=== PATIENT | female | born 1965 | race Caucasian/White ===

== ENCOUNTER 2024-08-19 09:02 | Emergency (ER) | payer BC ==
[2024-08-19] MEDS ORDERED: FAMOTIDINE 20 MG/2 ML VIAL IV ONE (09:45)
[2024-08-19] MEDS ORDERED: NA CHLORIDE 0.9% 1,000 ML ONE (09:45)
[2024-08-19 09:59] LABS: Absolute Eosinophils 0.2 K/uL (0-0.5); Absolute Lymphocytes (CBC) 1.5 K/uL (0.7-4.9); Absolute Monocytes 0.6 K/uL (0.1-1.3); Absolute Neutrophil 2.6 K/uL (1.8-8.0); Basophils % 0.4 % (0-1.3); Eosinophils % 4.9 % (0-4.4); Hematocrit 30.1 % (36.0-45.0); Hemoglobin 10.2 g/dL (12.0-15.0); Lymphocytes % 30.7 % (15.3-44.8); MCV 97.1 fL (80-100); MPV 7.6 fL (7.6-11.3); Monocytes % 12.1 % (3.3-12.3); Neutrophils % 51.9 % (41.7-73.7); Nucleated Red Blood Cells % 0.3 % (0-0); Platelets 406 thou/uL (152-406)
[2024-08-19 10:03] LABS: PT Prothrombin Time 18.2 SECONDS (9.4-12.5); Protime INR 1.65
--- NOTE | 2024-08-19 10:11 | RAD REPORT ---
EXAMINATION: CTA CHEST PE CLINICAL INDICATION: Chest pain TECHNIQUE: 100 cc 370 Isovue administered intravenously. This examination was performed according to an angiographic protocol with 3D post-processing. This involves 3D reconstructions, MIPs, volume rendered images and/or shaded surface rendering. One or more of the following dose reduction techniqu es were used: Automated exposure control, adjustment of the mA and/or kV according to patient size, and/or iterative reconstruction. Unless otherwise specified, incidental findings do not require dedic ated imaging follow-up. [id number]. COMPARISON: No prior exam. FINDINGS: No pulmonary embolus seen. An aortic aneurysm not noted. No pleural effusion. No pericardial effusion. Lungs are clear. 9 mm peripherally calcified nodule right lobe thyroid gland likely benign IMPRESSION: No evidence of a pulmonary embolus
--- NOTE | 2024-08-19 10:15 | RAD REPORT ---
Procedure: Chest Single View HISTORY: Chest pain COMPARISON: 2021 FINDINGS: The lungs appear clear of acute infiltrate. No significant pleural effusion noted. The heart is borderline enlarged. IMPRESSION: No acute abnormality is displayed.
[2024-08-19 10:21] LABS: ALT/SGPT 32 U/L (13-56); AST/SGOT 43 U/L (15-37); Albumin 2.7 g/dL (3.4-5.0); Albumin/Globulin Ratio 0.7 (1.1-1.8); Alkaline Phosphatase 71 U/L (45-117); Anion Gap 7.8 mEq/L (5.0-15.0); BUN Blood Urea Nitrogen 10 mg/dL (7-18); Bicarbonate 29 mEq/L (21-32); Bilirubin Total 0.3 mg/dL (0.2-1.0); Globulin 3.9 g/dL (2.3-3.5); Glomerular Filtration Rate 101 ml/min (=/>90); Glucose Level 162 mg/dL (74-106); Magnesium 1.9 mg/dL (1.6-2.4); NT PRO-BNP 432 pg/mL (<125); Potassium 3.8 mEq/L (3.5-5.1); Protein, Total 6.6 g/dL (6.4-8.2); Sodium Level 136 mEq/L (136-145); Troponin High Sensitivity 6.3 pg/mL (<58.9)
[2024-08-19 10:22] LABS: Bilirubin Direct < 0.2 mg/dL (0-0.2); Bilirubin Indirect, Calculated 0.1 mg/dL (0.2-0.8)
--- NOTE | 2024-08-19 10:29 | RAD REPORT ---
EXAMINATION: US bilateral LOWER EXTREMITY VENOUS DOPPLER CLINICAL INDICATION: Leg pain TECHNIQUE: Sonographic evaluation of the veins of the lower extremity bilaterally formed.Grayscale, c olor and spectral analysis performed on all vessels COMPARISON: No prior exam. FINDINGS: The common femoral, superficial femoral, greater saphenous, popliteal and posterior tibial veins bila terally are compressible and demonstrate augmentation. Doppler demonstrates good flow. IMPRESSION: No evidence of deep venous thrombosis involving either lower extremity
[2024-08-19] MEDS ORDERED: ONDANSETRON 4 MG/2 ML VIAL ONE (11:00)
[2024-08-19] MEDS ORDERED: MORPHINE 4 MG/ML SYR ONE (11:00)
--- NOTE | 2024-08-19 11:03 | EDPHYS ---
Physician Documentation [facility] Name: Williams Moore Age: 59 yrs Sex: Female : 1965 Arrival Date: 08/19/2024 Time: 09:02 Bed 7 Private MD: MOOK Physician Juan M Shepherd HPI: 08/19 10:55 This 59 yrs old Female presents to ER via EMS with complaints of Hip Pain, artur Leg Swelling. 10:55 The patient or guardian reports pain, swelling. sustained from post surgical. The artur complaints affect the right leg. Onset: The symptoms/episode began/occurred 5 day(s) ago. Modifying factors: The symptoms are alleviated by remaining still, the symptoms are aggravated by any movement. Associated signs and symptoms: Loss of consciousness: the patient experienced no loss of consciousness, Pertinent positives: None. Historical: - Allergies: 09:05 No Known Allergies; iw - PMHx: 09:05 Asthma; diabetes mellitus; Hypertensive disorder; iw - PSHx: 09:05 Fusion with hardware placement.; section; hysterectomy; Tonsillectomy; iw - Immunization history:: Adult Immunizations up to date. - Infectious Disease History:: Denies. - Social history:: Smoking status: Patient denies any tobacco usage or history of. ROS: 10:58 Constitutional: Negative for fever, chills, and weight loss, Eyes: Negative for injury, artur pain, redness, and discharge, ENT: Negative for injury, pain, and discharge, Neck: Negative for injury, pain, and swelling, Cardiovascular: Negative for chest pain, palpitations, and edema, 10:59 Respiratory: Negative for shortness of breath, cough, wheezing, and pleuritic chest artur pain, Abdomen/GI: Negative for abdominal pain, nausea, vomiting, diarrhea, and constipation, Back: Negative for injury and pain, : Negative for injury, bleeding, discharge, and swelling, Neuro: Negative for headache, weakness, numbness, tingling, and seizure, Psych: Negative for depression, anxiety, suicide ideation, homicidal ideation, and hallucinations, Allergy/Immunology: Negative for hives, rash, and allergies, Endocrine: Negative for neck swelling, polydipsia, polyuria, polyphagia, and marked weight changes, Hematologic/Lymphatic: Negative for swollen nodes, abnormal bleeding, and unusual bruising, 10:59 MS/extremity: Positive for pain, swelling, of the right leg, 10:59 Skin: Positive for swelling, Exam: 10:59 Constitutional: This is a well developed, well nourished patient who is awake, alert, artur and in no acute distress. Head/Face: Normocephalic, atraumatic. Eyes: Pupils equal round and reactive to light, extra-ocular motions intact. Lids and lashes normal. Conjunctiva and sclera are non-icteric and not injected. Cornea within normal limits. Periorbital areas with no swelling, redness, or edema. ENT: Nares patent. No nasal discharge, no septal abnormalities noted. Tympanic membranes are normal and external auditory canals are clear. Oropharynx with no redness, swelling, or masses, exudates, or evidence of obstruction, uvula midline. Mucous membranes moist. Neck: Trachea midline, no thyromegaly or masses palpated, and no cervical lymphadenopathy. Supple, full range of motion without nuchal rigidity, or vertebral point tenderness. No Meningismus. Chest/axilla: Normal chest wall appearance and motion. Nontender with no deformity. No lesions are appreciated. Cardiovascular: Regular rate and rhythm with a normal S1 and S2. No gallops, murmurs, or rubs. Normal PMI, no JVD. No pulse deficits. Respiratory: Lungs have equal breath sounds bilaterally, clear to auscultation and percussion. No rales, rhonchi or wheezes noted. No increased work of breathing, no retractions or nasal flaring. Abdomen/GI: Soft, non-tender, with normal bowel sounds. No distension or tympany. No guarding or rebound. No evidence of tenderness throughout. Back: No spinal tenderness. No costovertebral tenderness. Full range of motion. Female : Normal external genitalia. Skin: Warm, dry with normal turgor. Normal color with no rashes, no lesions, and no evidence of cellulitis. Neuro: Awake and alert, GCS 15, oriented to person, place, time, and situation. Cranial nerves II-XII grossly intact. Motor strength 5/5 in all extremities. Sensory grossly intact. Cerebellar exam normal. Normal gait. Psych: Awake, alert, with orientation to person, place and time. Behavior, mood, and affect are within normal limits. 10:59 Musculoskeletal/extremity: Circulation is intact in all extremities. Sensation intact. Compartment Syndrome exam of affected extremity: is normal. Weight bearing: able to fully bear weight, without difficulty, DVT Exam: negative Homans' sign noted on exam, no appreciated bluish discoloration, no erythema, no increased warmth, pain, swelling, tenderness, 11:04 ECG was reviewed by the Attending Physician. [facility] Vital Signs: 09:06 BP 132 / 65; Pulse 101; Resp 18; Temp 97.8; Pulse Ox 97% on R/A; Weight 86.18 kg; iw Height 5 ft. 6 in. ; Pain 3/10; 09:08 BP 134 / 66; iw 11:15 BP 132 / 61; Pulse 98; Resp 16; Pulse Ox 97% on R/A; iw 09:06 Body Mass Index 30.67 (86.18 kg, 167.64 cm) iw 09:06 Pain Scale: Adult iw MDM: 09:04 Medical Screening Exam initiated artur 11:00 Differential diagnosis: contusion, tendonitis, hip fracture, strain. Data reviewed: [facility] vital signs, nurses notes, lab test result(s), EKG, radiologic studies, CT scan, plain films. Consideration of Admission/Observation Escalation of care including admission/observation considered. I considered the following discharge prescriptions or medication management in the emergency department Medications were administered in the Emergency Department. See MAR. Independent interpretation of the following test(s) in the Emergency Department EKG: See my EKG interpretation above. Test considered but Not performed: X-ray: no x ray hip. Care significantly affected by the following chronic conditions: Diabetes, Hypertension, Obesity. 08/19 09:18 Order name: Basic Metabolic Panel; Complete Time: 10: [facility] 08/19 09:18 Order name: CBC with Diff; Complete Time: 10: [facility] 08/19 09:18 Order name: LFT's; Complete Time: 10: [facility] 08/19 09:18 Order name: Magnesium; Complete Time: 10: [facility] 08/19 09:18 Order name: NT PRO-BNP; Complete Time: 10:31 [facility] 08/19 09:18 Order name: PT-INR; Complete Time: 10:31 [facility] 08/19 09:18 Order name: Troponin HS; Complete Time: 10: [facility] 08/19 10:45 Order name: CREATININE WHOLE BLOOD; Complete Time: 10:47 EDMS 08/19 09:18 Order name: XRAY Chest (1 view); Complete Time: : [facility] 08/19 09:18 Order name: US Extremity Venous W Compression Keenan; Complete Time: [facility] 08/19 09:22 Order name: CT Chest For PE Angio; Complete Time: : [facility] 08/19 09:18 Order name: Cardiac monitoring; Complete Time: :40 [facility] 08/19 09:18 Order name: EKG - Nurse/Tech; Complete Time: 11:14 [facility] 08/19 09:18 Order name: IV Saline Lock; Complete Time: 40 [facility] 08/19 09:18 Order name: Labs collected and sent; Complete Time: [facility] 08/19 09:18 Order name: O2 Per Protocol; Complete Time: [facility] 08/19 09:18 Order name: O2 Sat Monitoring; Complete Time: [facility] EC:04 Rate is 96 beats/min. Rhythm is regular. QRS [place] is Normal. [place] interval is normal. QRS artur interval is normal. QT interval is normal. No Q waves. T waves are Normal. No ST changes noted. Clinical impression: NSR w/ Non-specific ST/T Changes and No evidence of ischemia. Interpreted by me. Reviewed by me. Administered Medications: 10:29 Drug: NS 0.9% IV 1000 ml IV at 1000 ml once; to be given as a bolus over 60 minutes ko1 Route: IV; Rate: 1000 ml; Site: right antecubital; 11:35 Follow up: IV Status: Completed infusion iw 10:30 Drug: Famotidine IVP 20 mg IVP once; dilute with 10 mL 0.9% NaCl; give over 2 minutes ko1 Route: IVP; Site: right antecubital; 10:50 Follow up: Response: No adverse reaction iw 10:55 Drug: morphine IVP or IV 4 mg IVP once over 4 mins Route: IVP; Infused Over: 4 mins; iw Site: right antecubital; 11:30 Follow up: Response: No adverse reaction iw 10:55 Drug: Ondansetron IVP 4 mg IVP once; over 2 minutes Route: IVP; Site: right antecubital;iw 11:30 Follow up: Response: No adverse reaction iw Disposition Summary: 08/19/24 11:02 Discharge Ordered Notes: Location: Home artur Problem: new artur Symptoms: have improved artur Condition: Stable artur Diagnosis - Edema, unspecified - right leg, s/p hip replacement artur Followup: artur - With: Private Physician - When: 2 - 3 days - Reason: Recheck today's complaints, Continuance of care, Re-evaluation by your physician Discharge Instructions: - Discharge Summary Sheet artur - Edema artur - Edema, [id number] artur - Peripheral Edema artur Forms: - Medication Reconciliation Form artur - Antibiotic Education artur - Prescription Opioid Use artur - Patient Portal Instructions artur - Leadership Thank You Letter artur Prescriptions: - Xarelto 10 mg Oral tablet - take 1 tablet ORAL route once daily; 20 tablet; Refills: 0, Product Selection artur Permitted Signatures: Dispatcher [employer] EDMS Juan M Shepherd MD MD cha Williams, Irene, RN RN iw Oliver, Kathy, RN RN ko1 Corrections: (The following items were deleted from the chart) 09:19 09:19 BASIC METABOLIC PANEL+C.LAB.BRZ ordered. EDMS EDMS 09:19 09:19 CBC+H.LAB.BRZ ordered. EDMS EDMS 09:19 09:19 HEPATIC FUNCTION+C.LAB.BRZ ordered. EDMS EDMS 09:19 09:19 MAGNESIUM+C.LAB.BRZ ordered. EDMS EDMS 09:19 09:19 PROBNP+C.LAB.BRZ ordered. EDMS EDMS 09:19 09:19 PROTIME (+INR)+COAG.LAB.BRZ ordered. EDMS EDMS 09:19 09:19 Troponin High Sensitivity+C.LAB.BRZ ordered. EDMS EDMS 09:19 09:19 Urinalysis+U.LAB.BRZ ordered. EDMS EDMS 09:19 09:19 Chest Single View+RAD.RAD.BRZ ordered. EDMS EDMS 09:19 09:19 Extrem Venous W Compression Keenan+US.RAD.BRZ ordered. EDMS EDMS
--- NOTE | 2024-08-19 11:03 | ER ---
Nurse's Notes [facility] Name: Williams Moore Age: 59 yrs Sex: Female : 1965 Arrival Date: 08/19/2024 Time: 09:02 Bed 7 Private MD: Diagnosis: Edema, unspecified-right leg, s/p hip replacement Presentation: 08/19 09:04 Chief complaint: EMS states: right leg swelling and pain s/p hip replacement surgery X iw 1 week ago. Coronavirus screen: At this time, the client does not indicate any symptoms associated with coronavirus-19. Ebola Screen: No symptoms or risks identified at this time. Initial Sepsis Screen: Does the patient meet any 2 criteria? No. Patient's initial sepsis screen is negative. Does the patient have a suspected source of infection? No. Patient's initial sepsis screen is negative. Risk Assessment: Do you want to hurt yourself or someone else? Patient reports no desire to harm self or others. 09:04 Method Of Arrival: EMS: [facility] iw 09:04 Acuity: ELOISA 3 iw 09:08 Onset of symptoms was August 12, 2024. iw Historical: - Allergies: 09:05 No Known Allergies; iw - PMHx: 09:05 Asthma; diabetes mellitus; Hypertensive disorder; iw - PSHx: 09:05 Fusion with hardware placement.; section; hysterectomy; Tonsillectomy; iw - Immunization history:: Adult Immunizations up to date. - Infectious Disease History:: Denies. - Social history:: Smoking status: Patient denies any tobacco usage or history of. Screenin:08 [facility] ED Fall Risk Assessment (Adult) History of falling in the last 3 months, iw including since admission Confusion or Disorientation No (0 pts) Intoxicated or Sedated No (0 pts) Impaired Gait Yes (1 pt) Mobility Assist Device Used Yes (1 pt) Altered Elimination No (0 pt) Score/Fall Risk Level 3 or more points = High Risk Oriented to surroundings, Maintained a safe environment. Abuse screen: Denies threats or abuse. Nutritional screening: No deficits noted. Tuberculosis screening: No symptoms or risk factors identified. Assessment: 09:07 General: Appears in no apparent distress. uncomfortable, Behavior is calm, cooperative. iw Pain: Complains of pain in right leg Pain currently is 3 out of 10 on a pain scale. Is continuous, Aggravated by increased activity, weight bearing. Neuro: Level of Consciousness is awake, alert, obeys commands, Oriented to person, place, time, situation, Moves all extremities. Full function. Cardiovascular: Patient's skin is warm and dry. Respiratory: Respiratory effort is even, unlabored, Respiratory pattern is regular, symmetrical. GI: Abdomen is non-distended. Derm: Skin is normal. Musculoskeletal: Swelling present in right leg Reports pain in right leg. 11:30 Reassessment: Patient appears in no apparent distress at this time. Patient and/or iw family updated on plan of care and expected duration. Pain level reassessed. Patient is alert, oriented x 3, equal unlabored respirations, skin warm/dry/pink. pt assisted to standing, pt able to ambulate with walker out to vehicle. Vital Signs: 09:06 BP 132 / 65; Pulse 101; Resp 18; Temp 97.8; Pulse Ox 97% on R/A; Weight 86.18 kg; iw Height 5 ft. 6 in. ; Pain 3/10; 09:08 BP 134 / 66; iw 11:15 BP 132 / 61; Pulse 98; Resp 16; Pulse Ox 97% on R/A; iw 09:06 Body Mass Index 30.67 (86.18 kg, 167.64 cm) iw 09:06 Pain Scale: Adult iw ED Course: 09:03 Patient arrived in ED. iw 09:04 Juan M Shepherd MD is Attending Physician. artur 09:04 Rosetta Farrar, RN is Primary Nurse. iw 09:05 Triage completed. iw 09:06 Arm band placed on. iw 09:06 Patient has correct armband on for positive identification. Placed in gown. Bed in low iw position. Side rails up X2. 09:41 Inserted saline lock: 20 gauge in right antecubital area, using aseptic technique. iw Blood collected. Flushed with 10 mL NS inserted by SHANTEL Burden. 09:52 CT Chest For PE Angio In Process Unspecified. EDMS 09:57 XRAY Chest (1 view) In Process Unspecified. EDMS 10:27 US Extremity Venous W Compression Keenan In Process Unspecified. EDMS 11:30 Provided Education on: prescription . iw 11:39 No provider procedures requiring assistance completed. IV discontinued, intact, iw bleeding controlled, No redness/swelling at site. Pressure dressing applied. Administered Medications: 10:29 Drug: NS 0.9% IV 1000 ml IV at 1000 ml once; to be given as a bolus over 60 minutes ko1 Route: IV; Rate: 1000 ml; Site: right antecubital; 11:35 Follow up: IV Status: Completed infusion iw 10:30 Drug: Famotidine IVP 20 mg IVP once; dilute with 10 mL 0.9% NaCl; give over 2 minutes ko1 Route: IVP; Site: right antecubital; 10:50 Follow up: Response: No adverse reaction iw 10:55 Drug: morphine IVP or IV 4 mg IVP once over 4 mins Route: IVP; Infused Over: 4 mins; iw Site: right antecubital; 11:30 Follow up: Response: No adverse reaction iw 10:55 Drug: Ondansetron IVP 4 mg IVP once; over 2 minutes Route: IVP; Site: right antecubital;iw 11:30 Follow up: Response: No adverse reaction iw Medication: 09:08 VIS not applicable for this client. iw Outcome: 11:02 Discharge ordered by . artur 11:39 Discharged to home ambulatory, with family, iw 11:39 Condition: good 11:39 Discharge instructions given to patient, family, Instructed on discharge instructions, follow up and referral plans. medication usage, Demonstrated understanding of instructions, follow-up care, medications, Prescriptions given X 1, 11:40 Patient left the ED. iw Signatures: Dispatcher [employer] Juan M Pabon MD MD cha Williams, Irene, RN RN iw Franny Granados RN RN ko1 Corrections: (The following items were deleted from the chart) 19:30 11:00 Reassessment: Patient appears in no apparent distress at this time. Patient iw and/or family updated on plan of care and expected duration. Pain level reassessed. Patient is alert, oriented x 3, equal unlabored respirations, skin warm/dry/pink. pt assisted to standing, pt able to ambulate with walker out to vehicle iw
[2024-08-19 11:46] VITALS: TEMP 97.8; O2SAT 97
[2024-08-19 11:49] VITALS: BP 132/61
--- NOTE | 2024-08-23 12:10 | EKG ---
Test Date: 2024-08-19 Test Time: 10:57:00 Health Center Manager: MARITZA MEASUREMENT RESULTS: Intervals: Rate: 96 ID: [id number] QRSD: 74 QT: 366 QTc: 462 [place]: P: 39 ID: [id number] QRS: -1 T: 28 INTERPRETIVE STATEMENTS: Normal sinus rhythm Normal ECG No previous ECG available for comparison Electronically Signed On 08-23-24 12:05:49 SECURITY CONTROLS ASSESSOR by Олег Ng
== END 2024-08-19 11:40 | disposition home or self-care (01) ==
LOC: ER 09:02
DX: R60.0 Localized edema (principal); M25.551 Pain in right hip; Z96.641 Presence of right artificial hip joint
CPT/HCPCS: 96361; 85025; 80048; 36415; 83735; 85610; 82565; 80076; 84484; 83880; 71275; 71045; 93970; 96375; 96374; 99284; Q9967; J2405; J7030; 93005

== ENCOUNTER 2024-09-21 08:10 | Observation (INO) | payer BC ==
[2024-09-21 08:41] LABS: PT Prothrombin Time 11.4 SECONDS (9.4-12.5); Protime INR 1.09
[2024-09-21 08:42] LABS: Absolute Eosinophils 0.1 K/uL (0-0.5); Absolute Lymphocytes (CBC) 2.1 K/uL (0.7-4.9); Absolute Monocytes 0.4 K/uL (0.1-1.3); Basophils % 0.4 % (0-1.3); Eosinophils % 2.5 % (0-4.4); Hematocrit 40.8 % (36.0-45.0); Hemoglobin 13.8 g/dL (12.0-15.0); Lymphocytes % 45.5 % (15.3-44.8); MCH 31.7 pg (27.0-35.0); MCHC 33.7 g/dL (32.0-36.0); Neutrophils % 43.6 % (41.7-73.7); Nucleated Red Blood Cells % 0.1 % (0-0); Platelets 271 thou/uL (152-406); RBC Red Blood Cell Count 4.34 M/uL (3.86-4.86); Red Cell Distribution Width 13.4 % (12.1-15.2)
[2024-09-21 08:55] LABS: Albumin 3.6 g/dL (3.4-5.0); Albumin/Globulin Ratio 0.9 (1.1-1.8); Anion Gap 13.6 mEq/L (5.0-15.0); Bilirubin Direct 0.2 mg/dL (0-0.2); Bilirubin Indirect, Calculated 0.3 mg/dL (0.2-0.8); Bilirubin Total 0.5 mg/dL (0.2-1.0); Globulin 4.1 g/dL (2.3-3.5); Magnesium 1.8 mg/dL (1.6-2.4); Potassium 3.6 mEq/L (3.5-5.1); Protein, Total 7.7 g/dL (6.4-8.2); Troponin High Sensitivity 5.1 pg/mL (<58.9)
[2024-09-21] MEDS ORDERED: KETOROLAC 30 MG/ML INJ ONE (09:05)
--- NOTE | 2024-09-21 09:21 | RAD REPORT ---
EXAM: CT Chest For Pe Angio TECHNIQUE: CT angiogram of the chest was performed following intravenous contrast administration, inc luding sagittal and coronal as well as maximum intensity projection reformats. One or more of the following dose reduction techniques were used: Automated exposure control, adjustment of the mA and k V according to patient size, and iterative reconstruction. Unless otherwise specified, incidental findings do not require dedicated imaging follow-up. INDICATION: [facility] MAIN CHEST PAIN Bed Name: 12 Y COMPARISON: 08/19/2024. FINDINGS: LINES/TUBES: None. PULMONARY ARTERIES: Main pulmonary artery is prominent in caliber, equal to or exceeding caliber of t he ascending aorta. No filling defects within the pulmonary arteries to suggest pulmonary embolus. LUNGS AND AIRWAYS: The lungs and central airways are normal without focal abnormality. PLEURA: No effusion or pneumothorax. HEART AND MEDIASTINUM: The visualized thyroid gland is normal. No mediastinal, hilar, or axillary lym phadenopathy. Heart is unremarkable. No pericardial effusion. SOFT TISSUES AND BONES: No acute osseous abnormality. No significant soft tissue finding. UPPER ABDOMEN: Unremarkable. IMPRESSION: No evidence of acute central pulmonary emboli. Prominent caliber of the main pulmonary artery, correlate clinically for ongoing pulmonary hypertensi on. No other acute intrathoracic findings.
[2024-09-21] MEDS ORDERED: ONDANSETRON 4 MG/2 ML VIAL ONE (09:33)
[2024-09-21] MEDS ORDERED: HYDROMORPHONE HCL 1 MG/ML INJ ONE (09:33)
--- NOTE | 2024-09-21 09:36 | ER ---
Nurse's Notes [facility] Name: Williams Moore Age: 59 yrs Sex: Female : 1965 Arrival Date: 09/21/2024 Time: 08:10 Bed 13 Private MD: Diagnosis: Chest pain Presentation: 09/21 08:16 Chief complaint: EMS states: LEFT SIDED CHEST PAIN RADIATING TO LEFT SHOULDER. bp Coronavirus screen: At this time, the client does not indicate any symptoms associated with coronavirus-19. Ebola Screen: No symptoms or risks identified at this time. Initial Sepsis Screen: Does the patient meet any 2 criteria? No. Patient's initial sepsis screen is negative. Does the patient have a suspected source of infection? No. Patient's initial sepsis screen is negative. Risk Assessment: Do you want to hurt yourself or someone else? Patient reports no desire to harm self or others. Onset of symptoms was September 21, 2024. Care prior to arrival: Glucose check: 148. 08:16 Method Of Arrival: EMS: [facility] bp 08:16 Acuity: ELOISA 3 bp Triage Assessment: 08:17 General: Appears in no apparent distress. uncomfortable, Behavior is calm, cooperative, bp appropriate for age. Pain: Complains of pain in chest. EENT: No deficits noted. Neuro: No deficits noted. Cardiovascular: Reports chest pain. Respiratory: No deficits noted. GI: No signs and/or symptoms were reported involving the gastrointestinal system. : No signs and/or symptoms were reported regarding the genitourinary system. Derm: No deficits noted. Musculoskeletal: No deficits noted. Historical: - Allergies: 08:17 No Known Allergies; bp - PMHx: 08:17 Asthma; diabetes mellitus; Hypertensive disorder; bp - PSHx: 08:17 section; Fusion with hardware placement.; hysterectomy; Tonsillectomy; bp - Immunization history:: Adult Immunizations up to date. - Infectious Disease History:: Denies. - Social history:: Smoking status: Patient denies any tobacco usage or history of. Screenin:19 [facility] ED Fall Risk Assessment (Adult) History of falling in the last 3 months, bp including since admission No falls in past 3 months (0 pts) Confusion or Disorientation No (0 pts) Intoxicated or Sedated No (0 pts) Impaired Gait No (0 pts) Mobility Assist Device Used No (0 pt) Altered Elimination No (0 pt) Score/Fall Risk Level 0 - 2 = Low Risk Oriented to surroundings. Abuse screen: Denies threats or abuse. Denies injuries from another. Nutritional screening: No deficits noted. Tuberculosis screening: No symptoms or risk factors identified. Assessment: 08:20 General: Appears in no apparent distress. uncomfortable. bp 11:00 Reassessment: REPORT FAXED FOR RM 410. bp Vital Signs: 08:12 BP 103 / 53; Pulse 80; Resp 19; Temp 98.5; Pulse Ox 98% on R/A; Weight 86.18 kg; Height ty 5 ft. 6 in. ; Pain 7/10; 08:16 BP 132 / 75; bp 08:12 Body Mass Index 30.67 (86.18 kg, 167.64 cm) ty 08:12 Pain Scale: Adult ty ED Course: 08:11 Initial lab(s) drawn, by me, sent to lab. EKG done, by ED staff, reviewed by Ludy Arroyo MD. 08:16 Patient arrived in ED. sp3 08:16 Ludy Arroyo MD is Attending Physician. sp3 08:16 Mathew Rogers, RN is Primary Nurse. bp 08:17 Triage completed. bp 08:17 Arm band placed on. bp 08:19 Patient has correct armband on for positive identification. bp 08:20 Inserted saline lock: 22 gauge in right antecubital area, using aseptic technique. ty Blood collected. Flushed with 10 mL NS. 08:56 CT Chest For PE Angio In Process Unspecified. EDMS 09:35 Zachariah Chiu is Hospitalizing Provider. sp3 11:00 Provided Education on: NA. bp 11:00 No provider procedures requiring assistance completed. Patient admitted, IV remains in bp place. Administered Medications: 09:10 Drug: Ketorolac IVP 15 mg IVP once Route: IVP; Site: left wrist; hb 09:31 Follow up: Response: No adverse reaction bp 09:37 Drug: Ondansetron IVP 4 mg IVP once; over 2 minutes Route: IVP; Site: left wrist; bp 11:53 Follow up: Response: No adverse reaction bp 09:38 Drug: HYDROmorphone IVP 1 mg IVP once Route: IVP; Site: left wrist; bp 11:53 Follow up: Response: No adverse reaction bp Medication: 11:00 VIS not applicable for this client. bp Outcome: 09:35 Decision to Hospitalize by Provider. sp3 11:53 Patient left the ED. bp Signatures: Dispatcher [employer] EDMS Belgica Whalen, RN RN Mathew Ness RN RN Ludy Hunter MD MD sp3 Teddy Nino ty Corrections: (The following items were deleted from the chart) 08:44 08:12 Inserted saline lock: 22 gauge in right antecubital area, using aseptic ty technique. Blood collected. Flushed with 10 mL NS ty 08:44 08:20 Initial lab(s) drawn, by me, sent to lab. EKG done, by ED staff, reviewed by ty Ludy Arroyo MD ty 08:46 08:45 BP 103 / 53; Pulse 80bpm; Resp 19bpm; Pulse Ox 98% RA; Temp 98.5F; Pain 7/10, ty Adult; ty 08:47 08:12 BP 103 / 53; Pulse 80bpm; Resp 19bpm; Pulse Ox 98% RA; Temp 98.5F; Pain 7/10, ty Adult; ty
--- NOTE | 2024-09-21 09:36 | EDPHYS ---
Physician Documentation [facility] Name: Williams Moore Age: 59 yrs Sex: Female : 1965 Arrival Date: 09/21/2024 Time: 08:10 Bed 13 Private MD: ED Physician Ludy Arroyo HPI: 09/21 08:19 This 59 yrs old Female presents to ER via EMS with complaints of chest pain. sp3 08:19 59-year-old female with history of diabetes, hypertension, asthma presents via EMS for sp3 chief complaint chest pain that started this morning when she woke up. Patient was at rest and watching television when it started. She states that the pain is left-sided radiating over to the right as well as the left shoulder. Patient had a elective right hip replacement performed approximately 1 month ago. She is not on no current anticoagulants or DVT prophylaxis. She denies any calf pain or lower extremity swelling. Review of systems negative for headache, fever, URI symptoms, cough, shortness of breath, back pain, abdominal pain, nausea, vomit, diarrhea, syncope, near syncope, focal neurological deficit, prolonged immobilization, travel history, or any other signs or symptoms on ROS at this time.. Historical: - Allergies: 08:17 No Known Allergies; bp - PMHx: 08:17 Asthma; diabetes mellitus; Hypertensive disorder; bp - PSHx: 08:17 section; Fusion with hardware placement.; hysterectomy; Tonsillectomy; bp - Immunization history:: Adult Immunizations up to date. - Infectious Disease History:: Denies. - Social history:: Smoking status: Patient denies any tobacco usage or history of. ROS: 08:20 Constitutional: Negative for fever, chills, and weight loss, Eyes: Negative for injury, sp3 pain, redness, and discharge, ENT: Negative for injury, pain, and discharge, Neck: Negative for injury, pain, and swelling, Respiratory: Negative for shortness of breath, cough, wheezing, and pleuritic chest pain, Abdomen/GI: Negative for abdominal pain, nausea, vomiting, diarrhea, and constipation, Back: Negative for injury and pain, MS/Extremity: Negative for injury and deformity, Skin: Negative for injury, rash, and discoloration, Neuro: Negative for headache, weakness, numbness, tingling, and seizure, Psych: Negative for depression, anxiety, suicide ideation, homicidal ideation, and hallucinations, Allergy/Immunology: Negative for hives, rash, and allergies, Endocrine: Negative for neck swelling, polydipsia, polyuria, polyphagia, and marked weight changes, Hematologic/Lymphatic: Negative for swollen nodes, abnormal bleeding, and unusual bruising, 08:20 All other systems are negative, Exam: 08:20 Constitutional: This is a well developed, well nourished patient who is awake, alert, sp3 and in no acute distress. Head/Face: Normocephalic, atraumatic. Eyes: Pupils equal round and reactive to light, extra-ocular motions intact. Lids and lashes normal. Conjunctiva and sclera are non-icteric and not injected. Cornea within normal limits. Periorbital areas with no swelling, redness, or edema. ENT: Nares patent. No nasal discharge, no septal abnormalities noted. External auditory canals are clear. Oropharynx with no redness, swelling, or masses, exudates, or evidence of obstruction, uvula midline. Mucous membranes moist. Neck: Trachea midline, no thyromegaly or masses palpated, and no cervical lymphadenopathy. Supple, full range of motion without nuchal rigidity, or vertebral point tenderness. No Meningismus. Chest/axilla: Normal chest wall appearance and motion. Nontender with no deformity. No lesions are appreciated. Cardiovascular: Regular rate and rhythm with a normal S1 and S2. No gallops, murmurs, or rubs. Normal PMI, no JVD. No pulse deficits. Respiratory: Lungs have equal breath sounds bilaterally, clear to auscultation and percussion. No rales, rhonchi or wheezes noted. No increased work of breathing, no retractions or nasal flaring. Abdomen/GI: Soft, non-tender, with normal bowel sounds. No distension or tympany. No guarding or rebound. No evidence of tenderness throughout. Back: No spinal tenderness. No costovertebral tenderness. Full range of motion. Skin: Warm, dry with normal turgor. Normal color with no rashes, no lesions, and no evidence of cellulitis. MS/ Extremity: Pulses equal, no cyanosis. Neurovascular intact. Full, normal range of motion. Neuro: Awake and alert, GCS 15, oriented to person, place, time, and situation. Cranial nerves II-XII grossly intact. Motor strength 5/5 in all extremities. Sensory grossly intact. Cerebellar exam normal. Normal gait. Psych: Awake, alert, with orientation to person, place and time. Behavior, mood, and affect are within normal limits. 08:37 ECG was reviewed by the Attending Physician. EKG demonstrates normal sinus rhythm at 71 sp3 bpm with normal intervals, normal QRS, normal axis, normal ST/T-segment's without evidence of acute ischemia. Vital Signs: 08:12 BP 103 / 53; Pulse 80; Resp 19; Temp 98.5; Pulse Ox 98% on R/A; Weight 86.18 kg; Height ty 5 ft. 6 in. ; Pain 7/10; 08:16 BP 132 / 75; bp 08:12 Body Mass Index 30.67 (86.18 kg, 167.64 cm) ty 08:12 Pain Scale: Adult ty MDM: 08:16 Medical Screening Exam initiated sp3 08:20 Data reviewed: vital signs, nurses notes, lab test result(s), EKG, radiologic studies. sp3 ED course: 59-year-old female with PMH above now with chest pain and postop 1 month from right hip replacement. Differential diagnosis includes acute coronary syndrome, musculoskeletal chest pain, PE, pleurisy, pneumonia, among others. I am not highly suspicious of sepsis, shock, aortic pathology, GI pathology or any other critical process. Workup will include EKG, CT chest PE protocol, general labs and supportive care with any layered medications as indicated.. 09:34 ED course: Chest pain improved after initial ketorolac. Patient notes having recurrent sp3 right hip pain. Will continue pain control with Dilaudid and Zofran. Initial troponin negative. Given history, patient will be placed in observation for continued serial cardiac markers and cardiology consult.. 09/21 08:16 Order name: Basic Metabolic Panel; Complete Time: 08:57 sp3 09/21 08:16 Order name: CBC with Diff; Complete Time: 08:57 sp3 09/21 08:16 Order name: LFT's; Complete Time: 08:57 sp3 09/21 08:16 Order name: Magnesium; Complete Time: 08:57 sp3 09/21 08:16 Order name: NT PRO-BNP; Complete Time: 08:57 sp3 09/21 08:16 Order name: PT-INR; Complete Time: 08:57 sp3 09/21 08:16 Order name: Troponin HS; Complete Time: 08:57 sp3 09/21 09:30 Order name: Flu sp3 09/21 09:30 Order name: SARS RAPID sp3 09/21 10:33 Order name: Basic Metabolic Panel EDMS 09/21 10:33 Order name: Basic Metabolic Panel EDMS 09/21 10:33 Order name: CBC with Automated Diff EDMS 09/21 10:33 Order name: CBC with Automated Diff EDMS 09/21 10:33 Order name: Hemoglobin A1c EDMS 09/21 10:33 Order name: Hemoglobin A1c EDMS 09/21 10:33 Order name: Lipid Profile EDMS 09/21 10:33 Order name: Lipid Profile EDMS 09/21 10:33 Order name: Troponin High Sensitivity EDMS 09/21 10:33 Order name: Troponin High Sensitivity EDMS 09/21 10:33 Order name: Troponin High Sensitivity EDMS 09/21 08:16 Order name: CT Chest For PE Angio; Complete Time: 09:27 sp3 09/21 10:33 Order name: EKG Electrocardiogram EDMS 09/21 10:33 Order name: EKG Electrocardiogram EDMS 09/21 10:33 Order name: EKG Electrocardiogram EDMS 09/21 10:33 Order name: EKG Electrocardiogram EDMS 09/21 08:16 Order name: Cardiac monitoring; Complete Time: 08:20 sp3 09/21 08:16 Order name: EKG - Nurse/Tech; Complete Time: 08:42 sp3 09/21 08:16 Order name: IV Saline Lock; Complete Time: 08:42 sp3 09/21 08:16 Order name: Labs collected and sent; Complete Time: 08:42 sp3 09/21 08:16 Order name: O2 Per Protocol; Complete Time: 08:20 sp3 09/21 08:16 Order name: O2 Sat Monitoring; Complete Time: 08:20 sp3 09/21 09:30 Order name: PO challenge; Complete Time: 09:38 sp3 Administered Medications: 09:10 Drug: Ketorolac IVP 15 mg IVP once Route: IVP; Site: left wrist; hb 09:31 Follow up: Response: No adverse reaction bp 09:37 Drug: Ondansetron IVP 4 mg IVP once; over 2 minutes Route: IVP; Site: left wrist; bp 11:53 Follow up: Response: No adverse reaction bp 09:38 Drug: HYDROmorphone IVP 1 mg IVP once Route: IVP; Site: left wrist; bp 11:53 Follow up: Response: No adverse reaction bp Disposition Summary: 09/21/24 09:35 Hospitalization Ordered Notes: Hospitalization Status: Observation sp3 Provider: Zachariah Chiu sp3 Location: Telemetry/MedSurg (observation) sp3 Condition: Stable sp3 Problem: new sp3 Symptoms: have worsened sp3 Bed/Room Type: Standard sp3 Room Assignment: 410(09/21/24 10:46) kb3 Diagnosis - Chest pain sp3 Forms: - Medication Reconciliation Form sp3 - SBAR form sp3 - Leadership Thank You Letter sp3 Signatures: Dispatcher [employer] EDMS Belgica Whalen, RN RN hb Mathew Rogers RN RN Ludy Hunter MD MD sp3 Cee Farr RN RN kb3 Corrections: (The following items were deleted from the chart) 08:17 08:17 BASIC METABOLIC PANEL+C.LAB.BRZ ordered. EDMS EDMS 08:17 08:17 CBC+H.LAB.BRZ ordered. EDMS EDMS 08:17 08:17 HEPATIC FUNCTION+C.LAB.BRZ ordered. EDMS EDMS 08:17 08:17 MAGNESIUM+C.LAB.BRZ ordered. EDMS EDMS 08:17 08:17 PROBNP+C.LAB.BRZ ordered. EDMS EDMS 08:17 08:17 PROTIME (+INR)+COAG.LAB.BRZ ordered. EDMS EDMS 08:17 08:17 Troponin High Sensitivity+C.LAB.BRZ ordered. EDMS EDMS 08:17 08:17 Chest For PE Angio+CT.RAD.BRZ ordered. EDMS EDMS 10:46 09:35 sp3 kb3
[2024-09-21] MEDS ORDERED: ACETAMINOPHEN 500 MG TAB PO PRN (10:25)
[2024-09-21] MEDS ORDERED: SODIUM CHLORIDE 0.9% 10ML INJ IV PRN (10:25)
--- NOTE | 2024-09-21 10:25 | P.HP ---
Certification for Inpatient Patient admitted to: Observation With expected LOS: <2 Midnights Patient will require the following post-hospital care: None Practitioner: I am a practitioner with admitting privileges, knowledge of patient current condition, hospital course, and medical plan of care. Services: Services provided to patient in accordance with Admission requirements found in Title 42 Section 412.3 of the Code of Federal Regulations Patient History Date of Service: 09/21/24 Reason for admission: Angina, palpitations History of Present Illness: Mrs. 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 She presents to the emergency department today after awaking with chest pain. She describes the pain as radiating over to the right as well as to the left shoulder. Pain is worse on movement. She denies shortness of breath, edema, dyspnea on exertion, or lightheadedness but does admit to nausea. Initial workup in the emergency department is negative for ACS or PE but as her heart score is 5 for age risk factors and nonspecific repolarization on EKG: We will admit her for observation for serial enzymes. Allergies No Known Allergies Allergy (Verified 03/31/23 22:14) Home Medications: Fenofibrate,Micronized [Fenofibrate] 130 mg PO DAILY 03/31/23 Lisinopril/Hydrochlorothiazide [Lisinopril-Hctz 10-12.5 mg Tab] 1 tab PO DAILY 03/31/23 Omeprazole [Prilosec] 40 mg PO DAILY 03/31/23 Folic Acid 1 mg PO DAILY #30 tab 04/02/23 Thiamine HCl [Vitamin B-1*] 100 mg PO DAILY #30 tab 04/02/23 Trazodone [Desyrel] 50 mg PO BEDTIME 09/21/24 - Past Medical/Surgical History Has patient received pneumonia vaccine in the past: No Diabetic: Yes -: Essential hypertension -: Diabetes currently uncontrolled -: Asthma -: -: Tonsillectomy -: Spine surgery -: Dental implants Psychosocial/ Personal History: , - Social History Smoking Status: Unknown if ever smoked Alcohol use: Yes CD- Drugs: No Caffeine use: No Place of Residence: Home Review of Systems 10-point ROS is otherwise unremarkable General: Weakness, Malaise Eyes: Unremarkable ENT: Unremarkable Respiratory: Unremarkable Cardiovascular: Chest Pain Gastrointestinal: Nausea, Vomiting, Diarrhea Genitourinary: Unremarkable Musculoskeletal: Unremarkable Integumentary: Unremarkable Neurological: Unremarkable Lymphatics: Unremarkable Physical Examination - Physical Exam General: Alert, In no apparent distress, Oriented x3 HEENT: Atraumatic, Normocephalic Neck: Supple, JVD not distended Respiratory: Clear to auscultation bilaterally, Normal air movement Cardiovascular: Normal pulses, Regular rate/rhythm, Normal S1 S2 Capillary refill: <2 Seconds Gastrointestinal: Normal bowel sounds, Soft and benign Musculoskeletal: No clubbing, No swelling Integumentary: No rashes Neurological: Normal speech, Normal tone, Normal affect Lymphatics: No axilla or inguinal lymphadenopathy External genitalia: Deferred Rectal: Deferred - Studies Laboratory Data (last 24 hrs) 09/21/24 09/21/24 09/21/24 08:24 08:24 08:24 WBC 4.60 Hgb 13.8 Hct 40.8 Plt Count 271 PT 11.4 INR 1.09 Sodium 137 Potassium 3.6 BUN 19 H Creatinine 0.86 Glucose 126 H Magnesium 1.8 Total Bilirubin 0.5 AST 39 H ALT 30 Alkaline Phosphatase 101 Assessment and Plan - Plan Angina/palpitations Patient admitted with chest pain. Pain is 4/10. Pain does radiate to the shoulders. Patient denies vomiting, diaphoresis, shortness of breath, diarrhea, admits to nausea Patient's chest pain improved with toradol Serial troponins and EKG aspirin, beta-reyna, statin, and O2 as needed pain control Right hip replacement (1mo ago) just finished rehab, continue ROM and OOB unless this increases CP HTN continue BB and Lisinopril NIDDM Monitor and trend Patient has been on Mounjaro but has not taken for 2 months ED glucose 126 mg/dL Possible viral illness flu and covid studies negative VTE/GI prophylaxis Discharge Plan: Home Plan to discharge in: 24 Hours - Advance Directives Does patient have a Living Will: No Does patient have a Durable POA for Healthcare: No - Code Status/Comfort Care Code Status Assessed: Yes (Full) Critical Care: No
[2024-09-21 10:46] LABS: SARS-CoV-2 Antigen CONTROL BLUE LINE VIS/BG OK; SARS-CoV-2 Antigen Rapid Res Negative (Negative)
[2024-09-21] MEDS: PROMETHAZINE 25 MG TABLET PO PRN (15:24)
[2024-09-21] MEDS: FENTANYL CITR 100 MCG/2 ML IV ONE (17:39)
[2024-09-21] MEDS: ATORVASTATIN 10 MG TAB PO SCH (21:07)
[2024-09-21] MEDS: PANTOPRAZOLE 40 MG INJ IVP SCH (21:08)
[2024-09-22] MEDS: METOPROLOL XL 25 MG TAB PO SCH ×2 (05:35→07:00)
[2024-09-22] MEDS: LOPERAMIDE HCL 2 MG CAPSULE PO ONE (05:36)
[2024-09-22] MEDS: ASPIRIN EC 81 MG TAB PO SCH (07:58)
[2024-09-22] MEDS: HYDROCODONE/APAP 5/325 MG TAB PO PRN (07:58)
[2024-09-22] MEDS: lisinopriL 5 MG TAB PO SCH (07:59)
[2024-09-22] MEDS: METOPROLOL XL 25 MG TAB PO ONE (08:00)
[2024-09-22 08:11] LABS: Absolute Eosinophils 0.1 K/uL (0-0.5); Absolute Lymphocytes (CBC) 1.6 K/uL (0.7-4.9); Absolute Monocytes 0.7 K/uL (0.1-1.3); Absolute Neutrophil 3.4 K/uL (1.8-8.0); Basophils % 0.4 % (0-1.3); Eosinophils % 1.7 % (0-4.4); Hematocrit 37.3 % (36.0-45.0); Hemoglobin 12.6 g/dL (12.0-15.0); Lymphocytes % 27.9 % (15.3-44.8); MCH 31.9 pg (27.0-35.0); MCHC 33.8 g/dL (32.0-36.0); MCV 94.4 fL (80-100); MPV 8.5 fL (7.6-11.3); Monocytes % 11.7 % (3.3-12.3); Neutrophils % 58.3 % (41.7-73.7); Nucleated Red Blood Cells % 0.1 % (0-0); Platelets 204 thou/uL (152-406); RBC Red Blood Cell Count 3.95 M/uL (3.86-4.86); Red Cell Distribution Width 13.1 % (12.1-15.2)
[2024-09-22 08:21] LABS: Anion Gap 7.7 mEq/L (5.0-15.0); Potassium 3.7 mEq/L (3.5-5.1)
[2024-09-22] MEDS ORDERED: lisinopriL 5 MG TAB PO SCH (09:00)
--- NOTE | 2024-09-22 09:48 | P.DS ---
Admission Date: 09/21/24 Discharge Date: 09/22/24 Reason for Admission: Angina, palpitations Brief History of Present Illness: Mrs. 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 She presents to the emergency department today after awaking with chest pain. She describes the pain as radiating over to the right as well as to the left shoulder. Pain is worse on movement. She denies shortness of breath, edema, dyspnea on exertion, or lightheadedness but does admit to nausea. Initial workup in the emergency department is negative for ACS or PE but as her heart score is 5 for age risk factors and nonspecific repolarization on EKG: We will admit her for observation for serial enzymes. Hospital Course: Ms. Moore did not have chest pain overnight; however, she did complain of some palpitations overnight and an EKG showed sinus tach at 116. Cardiac enzymes have been negative x 3. This is very reassuring and Ms. Moore will be discharged this morning with an increased dose of metoprolol to 50mg daily and a mild decrease in reported lisinopril dosage to 5mg daily. Please keep a blood pressure log. She will soon begin outpatient rehab for her right hip arthroplasty but has finished Xarelto postsurgically. 81 mg aspirin daily is recommended and she should follow-up with her PCP in 1 to 2 weeks. <Dolly Rahman - Last Filed: 09/22/24 09:40> Admission Date: 09/21/24 Discharge Date: 09/22/24 Hospital Course: Discharge diagnosis Chest pain History right hip replacement Hypertension NIDDM <luz recinos - Last Filed: 09/22/24 19:13> Disposition: ROUTINE DISCHARGE Discharge Condition: GOOD Vital Signs/Physical Exam: Temp Pulse Resp BP Pulse Ox 97.4 F 98 H 18 140/71 97 09/22/24 04:00 09/22/24 08:00 09/22/24 07:58 09/22/24 08:00 09/22/24 07:58 General: Alert, In no apparent distress, Oriented x3 HEENT: Atraumatic, Normocephalic Neck: Supple, 2+ carotid pulse no bruit Respiratory: Clear to auscultation bilaterally, Normal air movement Cardiovascular: Normal pulses, Regular rate/rhythm, Normal S1 S2 Capillary refill: <2 Seconds Gastrointestinal: Soft and benign Musculoskeletal: No clubbing, No swelling Integumentary: No rashes, No breakdown Neurological: Other (Walking with walker status post right hip arthroplasty) Lymphatics: No axilla or inguinal lymphadenopathy External genitalia: Deferred Rectal: Deferred Laboratory Data at Discharge: WBC 5.80 thou/uL (4.3-10.9) 09/22/24 07:46 Hgb 12.6 g/dL (12.0-15.0) D 09/22/24 07:46 Hct 37.3 % (36.0-45.0) 09/22/24 07:46 Plt Count 204 thou/uL (152-406) 09/22/24 07:46 PT 11.4 SECONDS (9.4-12.5) 09/21/24 08:24 INR 1.09 09/21/24 08:24 Sodium 135 mEq/L (136-145) L 09/22/24 07:46 Potassium 3.7 mEq/L (3.5-5.1) 09/22/24 07:46 BUN 15 mg/dL (7-18) 09/22/24 07:46 Creatinine 0.75 mg/dL (0.55-1.02) 09/22/24 07:46 Glucose 132 mg/dL (74-106) H 09/22/24 07:46 Magnesium 1.8 mg/dL (1.6-2.4) 09/21/24 08:24 Total Bilirubin 0.5 mg/dL (0.2-1.0) 09/21/24 08:24 AST 39 U/L (15-37) H 09/21/24 08:24 ALT 30 U/L (13-56) 09/21/24 08:24 Alkaline Phosphatase 101 U/L (45-117) 09/21/24 08:24 Triglycerides 119 mg/dL (<150) 09/22/24 07:46 Cholesterol 151 mg/dL (<200) 09/22/24 07:46 HDL Cholesterol 82 mg/dL (40-60) H 09/22/24 07:46 Cholesterol/HDL Ratio 1.84 09/22/24 07:46 <Rahman,Dolly Liam - Last Filed: 09/22/24 09:40> Vital Signs/Physical Exam: Temp Pulse Resp BP Pulse Ox 98.1 F 98 H 18 140/71 97 09/22/24 08:00 09/22/24 08:00 09/22/24 08:58 09/22/24 08:00 09/22/24 08:58 Laboratory Data at Discharge: WBC 5.80 thou/uL (4.3-10.9) 09/22/24 07:46 Hgb 12.6 g/dL (12.0-15.0) D 09/22/24 07:46 Hct 37.3 % (36.0-45.0) 09/22/24 07:46 Plt Count 204 thou/uL (152-406) 09/22/24 07:46 PT 11.4 SECONDS (9.4-12.5) 09/21/24 08:24 INR 1.09 09/21/24 08:24 Sodium 135 mEq/L (136-145) L 09/22/24 07:46 Potassium 3.7 mEq/L (3.5-5.1) 09/22/24 07:46 BUN 15 mg/dL (7-18) 09/22/24 07:46 Creatinine 0.75 mg/dL (0.55-1.02) 09/22/24 07:46 Glucose 132 mg/dL (74-106) H 09/22/24 07:46 Magnesium 1.8 mg/dL (1.6-2.4) 09/21/24 08:24 Total Bilirubin 0.5 mg/dL (0.2-1.0) 09/21/24 08:24 AST 39 U/L (15-37) H 09/21/24 08:24 ALT 30 U/L (13-56) 09/21/24 08:24 Alkaline Phosphatase 101 U/L (45-117) 09/21/24 08:24 Triglycerides 119 mg/dL (<150) 09/22/24 07:46 Cholesterol 151 mg/dL (<200) 09/22/24 07:46 HDL Cholesterol 82 mg/dL (40-60) H 09/22/24 07:46 Cholesterol/HDL Ratio 1.84 09/22/24 07:46 <luz recinos - Last Filed: 09/22/24 19:13> Diet: AHA Activity: Fall precautions <Rahman,Dolly Liam - Last Filed: 09/22/24 09:40> <luz recinos - Last Filed: 09/22/24 19:13> Home Medications: Fenofibrate,Micronized [Fenofibrate] 130 mg PO DAILY 03/31/23 Omeprazole [Prilosec] 40 mg PO DAILY 03/31/23 Folic Acid 1 mg PO DAILY #30 tab 04/02/23 Thiamine HCl [Vitamin B-1*] 100 mg PO DAILY #30 tab 04/02/23 Trazodone [Desyrel*] 50 mg PO BEDTIME 09/21/24 Aspirin [Aspirin EC 81 MG] 81 mg PO DAILY #1 bottle 09/22/24 Lisinopril [Zestril] 5 mg PO DAILY #90 tab 09/22/24 Metoprolol Succinate 50 mg PO DAILY #90 tab 09/22/24 Promethazine Tab [Phenergan*] 25 mg PO Q6H PRN #24 tab 09/22/24 New Medications: Aspirin [Aspirin EC 81 MG] 81 mg PO DAILY #1 bottle Metoprolol Succinate 50 mg PO DAILY #90 tab Promethazine Tab [Phenergan*] 25 mg PO Q6H PRN #24 tab PRN Reason: Nausea / Vomiting Lisinopril [Zestril] 5 mg PO DAILY #90 tab Physician Discharge Instructions: Brief History of Present Illness: Mrs. 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 She presents to the emergency department today after awaking with chest pain. She describes the pain as radiating over to the right as well as to the left shoulder. Pain is worse on movement. She denies shortness of breath, edema, dyspnea on exertion, or lightheadedness but does admit to nausea. Initial workup in the emergency department is negative for ACS or PE but as her heart score is 5 for age risk factors and nonspecific repolarization on EKG: We will admit her for observation for serial enzymes. Hospital Course: Ms. Moore did not have chest pain overnight; however, she did complain of some palpitations overnight and an EKG showed sinus tach at 116. Cardiac enzymes have been negative x 3. This is very reassuring and Ms. Moore will be discharged this morning with an increased dose of metoprolol to 50mg daily and a mild decrease in reported lisinopril dosage to 5mg daily. Please keep a blood pressure log. She will soon begin outpatient rehab for her right hip arthroplasty but has finished Xarelto postsurgically. 81 mg aspirin daily is recommended and she should follow-up with her PCP in 1 to 2 weeks. Followup: Jamil Montejo MD [Primary Care Provider] - 1-2 Weeks
--- NOTE | 2024-09-22 11:52 | EKG ---
Test Date: 2024-09-21 Test Time: 08:31:40 Firer Helper: KAYY MEASUREMENT RESULTS: Intervals: Rate: 71 MT: 130 QRSD: 80 QT: 398 QTc: 432 [place]: P: 45 MT: 130 QRS: 2 T: 26 INTERPRETIVE STATEMENTS: Normal sinus rhythm Nonspecific ST abnormality Abnormal ECG Compared to ECG 08/19/2024 10:57:00 ST (T wave) deviation now present Electronically Signed On 09-22-24 11:51:39 [employer] by Олег Ng
[2024-09-23 02:08] VITALS: O2SAT 97
[2024-09-23 02:11] VITALS: BP 140/71; TEMP 98.1; BMI 4035.0
[2024-09-23] MEDS ORDERED: METOPROLOL XL 25 MG TAB PO SCH (06:00)
== END 2024-09-22 11:13 | disposition home or self-care (01) ==
LOC: ER 08:10 → ERHOLD 10:25 → 4TH 11:05
PROVIDERS: ADMIT Internal Medicine; ATTEND Internal Medicine
DX: I20.9 Angina pectoris, unspecified (principal); R00.2 Palpitations; E11.9 Type 2 diabetes mellitus without complications; I10 Essential (primary) hypertension; J45.909 Unspecified asthma, uncomplicated; Z96.641 Presence of right artificial hip joint; Z11.52 Encounter for screening for COVID-19
CPT/HCPCS: 93005; 85025 ×2; 80048 ×2; 36415; 83735; 85610; 80061; 80076; 83036; 84484 ×3; 83880; 87804 ×2; 71275; 96375; 96374; 99284; 87811; Q9967; Q0169; J2470 ×2; J1171; J2405; G0378 ×3

== ENCOUNTER 2025-06-22 18:11 | Emergency (ER) | payer BC ==
--- OUTSIDE RECORDS SUMMARY | 2025-06-22 18:16 | XMS REPORT | Continuity of Care Document ---
Author Name Unknown Address [address] [facility] [address] [place] [address] [facility] Address [address] [facility] [address] [place] [address] Care Team Providers Care Consulting Manager Name Role Phone Orlando Arroyo Primary Care Physician [phone] Ketty Lyons MD Attending Clinician [phone] Casey Armendariz MD Attending Clinician [phone] MACARENA HAMMONDS Attending Clinician UnavailMacarena Robin MD Attending Clinician [phone] Pre-Op/Pacu, Se Ecg Attending Clinician Brenda Maradiaga RN, Melale Attending Clinician Unavailab [place] MALCOLM, Casey Attending Clinician [phone] CASEY ARMENDARIZ Attending Clinician Unavailable Doctor Unassigned, [place] Attending Clinician U KYUNG Hansen Attending Clinician Unavailable Lab, Adc Fam Pob I Attending Clinician CHRIS Webb Attending Clinician Unavailable MACARENA HAMMONDS Admitting Clinician Macarena Benavides MD Admitting Clinician [phone] Payers Payer Name Policy Type Policy Number Effective Date Expirati on Date Source Problems Condition Name Condition Details Condition Category Status Onset Date Resolution Date Last Treatment Date Treating Clinician Comments Source Disorder of pelvis Disorder of pelvis Disease Active 2023-09 00:00: 00 Ricki Burch Spinal stenosis of cervical region Spinal stenosis of cervical region Disease Active 2023-09 00:00: 00 Ricki Burch Essential hypertensi on Essential hypertensi on Disease Active 2023-09 00:00: 00 Ricki Burch Adrenal insufficie ncy (Wharton's disease) Adrenal insufficie ncy (Niko's disease) Disease Active 2023-09 00:00: 00 Ricki Burch 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 Active 2023-09 00:00: 00 Ricki Burch Acute blood loss anemia Acute blood loss anemia Disease Active 2023-09 00:00: 00 Ricki Burch S/P total right hip arthroplas ty S/P total right hip arthroplas ty Disease Active 2023-09 00:00: 00 Ricki Burch Asthma Asthma Disease Active 2023-09 00:00: 00 Ricki Burch Gastroesop hageal reflux disease Gastroesop hageal reflux disease Disease Active 2023-09 00:00: 00 Ricki Burch Psoriasis Psoriasis Disease Active 2023-09 00:00: 00 Ricki Burch Simple obesity Simple obesity Disease Active 2023-09 00:00: 00 Ricki Burch CERVICAL STENOSIS CERVICAL STENOSIS Active 06/29/2017 [facility] Diagnosis Active 2016-09 00:00: 00 2017-07-16 11:35:00 Ricki Navarro Cervical stricture or stenosis Cervical stricture or stenosis Disease Active 2016-09 00:00: 00 Ricki Burch Unilateral primary osteoarthr itis, right hip Unilateral primary osteoarthr itis, right hip Disease Resolve d 2023-09 00:00: 00 2024-08-15 00:00:00 2024-08-15 16:02:06 Ricki Burch Status post surgery Status post surgery Disease Resolve d 2023-09 00:00: 00 2024-08-15 00:00:00 2024-08-15 16:07:06 Ricki Burch Hypotensio n Hypotensio n Disease Resolve d 2023-09 00:00: 00 2024-08-13 00:00:00 2024-08-15 15:52:35 Ricki Burch Allergies, Adverse Reactions, Alerts Allergy Name Allergy Type Status Severity Reaction(s) Onset Date Inactive Date Treating Clinician Comments Source MINOCYCL INE DRUG INGREDI Active Med Hives 04-16 00:00: 00 [facility] Minocycl ine Drug Allergy Active Hives 8 00:00: 00 [facility] minocycl ine minocycl ine Active Ricki Navarro NO KNOWN ALLERGIE S Drug Class Active [facility] Social History Social Habit Start Date Stop Date Quantity Comments Source Gender identity 2023-11-28 22:58:08 Identifies as female gender (finding) [facility] Sexual orientation [facility] ASSERTION Not Ricki Burch Alcoholic beverage intake 2024-08-15 00:00:00 2024-08-15 00:00:00 Current drinker of alcohol (finding) [facility] History of Social function 2024-08-11 00:00:00 2024-08-11 00:00:00 [facility] Tobacco use and exposure 2024-08-08 00:00:00 2024-08-08 00:00:00 Smokeless tobacco non-user [facility] Alcohol Comment 2024-08-08 00:00:00 2024-08-08 00:00:00 3 liquor drinks per day [facility] Social History 2017-06-29 17:47:48 2017-06-29 17:47:48 [facility] Sex assigned at 1965 00:00:00 1965 00:00:00 [facility] Smoking Status Start Date Stop Date Source Tobacco smoking consumption unknown [facility] Never smoked tobacco [facility] [place] [facility] Medications Ordered Medication Name Filled Medication Name Start Date Stop Date Current Medication? Ordering Clinician Indication Dosage Frequency Signature (SIG) Comments Components Source metoprolol succinate XL 25 mg 24 hr tablet 09-14 00:00: 00 Yes [id number] 25mg Take 1 tablet by mouth in the morning. Please follow up for refills. [facility] traZODone (Desyrel) 50 MG tablet traZODone (Desyrel) 50 MG tablet 2023-09 00:00: 00 09-14 23:59 :00 No 50mg Take 1 tablet by mouth at bedtime. Ricki Burch acetaminoph en (Tylenol) 325 MG tablet acetaminoph en (Tylenol) 325 MG tablet 2023-09 00:00: 00 08-25 23:59 :00 No 650mg Q6H Take 2 tablets by mouth every 6 hours if needed for mild pain (1-3) for up to 10 days. Ricki Burch docusate sodium (Colace) capsule 100 mg docusate sodium (Colace) capsule 100 mg 2023-09 17:00: 00 08-15 13:39 :40 No 100mg Q.5D 100 mg, Oral, 2 times daily, First dose on 08/13/24 at 1700 Ricki Burch polyethylen e glycol (PEG) 3350 (Miralax) packet 17 g polyethylen e glycol (PEG) 3350 (Miralax) packet 17 g 2023-09 13:45: 00 08-15 13:39 :40 No 17g QD 17 g, Oral, Daily, First dose on 08/13/24 at 1345, Dissolve 17 g in 120 to 240 mL (4 to 8 ounces) of beverage. Ricki Burch enoxaparin (Lovenox) syringe 40 mg enoxaparin (Lovenox) syringe 40 mg 2023-09 13:45: 00 08-15 13:39 :40 No 40mg 40 mg, Subcutaneo us, Every 24 hours, First dose on 08/13/24 at 1345 Ricki Burch cosyntropin (Cortrosyn) injection 0.25 mg cosyntropin (Cortrosyn) injection 0.25 mg 2023-09 08:00: 00 08-13 09:39 :00 No .25mg 0.25 mg, Intravenou s, Once, On 08/13/24 at 0800, For 1 dose, Administer AFTER initial Baseline cortisol level draw (lab draw #1). See Special Lab Instructio n to Nurse order for further details. Ricki Burhc lidocaine 4 % patch 1 patch lidocaine 4 % patch 1 patch 2023-09 14:30: 00 08-15 13:39 :40 No 1{patch } QD 1 patch, Apply externally , Administer over 12 Hours, Daily, First dose on Thu08/12/24 at 1430, Patch is applied to intact skin to cover painful area for up to 12 hours in a 24-hour period (12 hours on and 12 hours off). Apply to hip Remove old patch before applicatio n of new patch. Ricki Burch acetaminoph en (Tylenol) tablet 650 mg acetaminoph en (Tylenol) tablet 650 mg 2023-09 09:14: 42 Yes 650mg Q6H 650 mg, Oral, Every 6 hours PRN, mild pain (1-3), Starting on Thu08/12/24 at 0914, Max acetaminop hen = 4000mg/day (4gm/day) Ricki Burch metoprolol succinate XL (Toprol-XL) 24 hr tablet 25 mg metoprolol succinate XL (Toprol-XL) 24 hr tablet 25 mg 2023-09 07:00: 00 Yes 25mg Ricki Burch cyclobenzap rine (Flexeril) tablet 5 mg cyclobenzap rine (Flexeril) tablet 5 mg 2023-09 06:41: 14 08-15 13:39 :40 No 5mg Q.[id number] 3D 5 mg, Oral, 3 times daily PRN, muscle spasms, Starting on Thu08/12/24 at 0641 Ricki Burch lactated Ringer's bolus 1,000 mL [id number] 4502-1 2-06 05:00: 00 08-12 06:57 :00 No 1000mL 1,000 mL, Intravenou s, at 1,000 mL/hr, Administer over 1 Hours, Once, On Thu08/12/24 at 0500, For 1 dose Ricki Burch traZODone (Desyrel) tablet 50 mg traZODone (Desyrel) tablet 50 mg 2023-09 21:00: 00 Yes 50mg 50 mg, Oral, Nightly, First dose on Thu08/11/24 at 2100, Phase II/On Unit Ricki Burch famotidine (Pepcid) tablet 20 mg famotidine (Pepcid) tablet 20 mg 2023-09 16:00: 00 08-15 13:39 :40 No 20mg QD 20 mg, Oral, Daily, First dose on Thu08/11/24 at 1600, Phase II/On Unit Ricki Burch ceFAZolin (Ancef) 2 g in sterile water injection ceFAZolin (Ancef) 2 g in sterile water injection 2023-09 16:00: 00 08-15 08:57 :16 No 2g Q8H 2 g, Intravenou s, at 200 mL/hr, Administer over 6 Minutes, Every 8 hours, First dose on Thu08/11/24 at 1600, For 7 days, Phase II/On Unit, Reconstitu te each vial with 10 mL sterile water for injection. (20 mL total needed) Prepare dose at bedside immediatel y prior to administra tion. Reconstitu tion: Shake immediatel y and vigorously . Withdraw entire contents of the 1st vial and give IV push slowly over specified time. Withdraw entire contents of the 2nd vial and give IV push slowly over specified time., Suspected Indication (Select all that apply): Surgical Prophylaxi s Ricki Burch HYDROcodone -acetaminop hen ([place]) 10-325 MG per tablet 1 tablet HYDROcodone -acetaminop hen ([place]) 10-325 MG per tablet 1 tablet 2023-09 15:50: 57 Yes 1{tbl} Q6H 1 tablet, Oral, Every 6 hours PRN, severe pain (7-10), Starting on Thu08/11/24 at 1550, Phase II/On Unit Ricki Burch ketorolac (Toradol) injection 15 mg ketorolac (Toradol) injection 15 mg 2023-09 14:41: 12 08-11 15:36 :28 No 15mg Q6H 15 mg, Intravenou s, Every 6 hours PRN, moderate pain (4-6), Starting on Thu08/11/24 at 1441, For 119 hours, Recovery (only) Ricki Burch HYDROmorpho ne (Dilaudid) injection 0.5 mg HYDROmorpho ne (Dilaudid) injection 0.5 mg 2023-09 12:59: 54 08-11 15:36 :28 No .5mg 0.5 mg, Intravenou s, Every 10 min PRN, severe pain (7-10), Starting on Linda 08/11/24 at 1259, For 4 doses, Recovery (only), Hold for respirator y rate or 8 or less. Ricki Burch traZODone (Desyrel) 50 MG tablet traZODone (Desyrel) 50 MG tablet 2023-09 15:41: 37 Yes Take by mouth at bedtime. Ricki Burch HYDROcodone -acetaminop hen ([place]) 10-325 MG tablet HYDROcodone -acetaminop hen ([place]) 10-325 MG tablet 2023-09 15:41: 37 Yes 1{tbl} Q6H Take 1 tablet by mouth every 6 hours if needed for severe pain (7-10). Ricki Burch lisinopril- hydroCHLORO thiazide 20-12.5 MG tablet lisinopril- hydroCHLORO thiazide 20-12.5 MG tablet 2023-09 15:41: 37 08-15 00:00 :00 No 1{tbl} Take 1 tablet by mouth every morning. Ricki Burch Magnesium 250 MG capsule Magnesium 250 MG capsule 2023-09 15:41: 37 08-15 00:00 :00 No Take by mouth. Ricki Burch Phytonadion e (K1-1000 PO) Phytonadion e (K1-1000 PO) 2023-09 15:41: 37 08-11 00:00 :00 No 3{tbl} QD Take by mouth. Ricki Burch Bromelains 500 MG tablet Bromelains 500 MG tablet 2023-09 15:41: 37 08-11 00:00 :00 No 1{tbl} QD Take 1 tablet by mouth 1 time each day. Ricki Burch cyanocobala min 1000 MCG tablet cyanocobala min 1000 MCG tablet 2023-09 15:41: 37 08-11 00:00 :00 No 2500ug QD Take 2,500 mcg by mouth 1 time each day. Ricki Burch cetirizine (ZyrTEC) 10 MG tablet cetirizine (ZyrTEC) 10 MG tablet 2023-09 15:41: 37 08-11 00:00 :00 No Take by mouth. Ricki Burch melatonin 10 MG tablet melatonin 10 MG tablet 2023-09 15:41: 37 08-11 00:00 :00 No Take by mouth. Ricki Burch diphenhydrA MINE (BENADryl) 25 MG capsule diphenhydrA MINE (BENADryl) 25 MG capsule 2023-09 15:37: 51 Yes 25mg QD Take 25 mg by mouth as needed at bedtime. Ricki Burch coenzyme Q-10 10 MG capsule coenzyme Q-10 10 MG capsule 2023-09 15:37: 51 08-11 00:00 :00 No 10mg QD Take 10 mg by mouth 1 time each day. Ricki Burch folic acid (Folvite) 1 MG tablet folic acid (Folvite) 1 MG tablet 2023-09 15:37: 51 08-11 00:00 :00 No 1{tbl} Take 1 tablet by mouth every morning. Ricki Burch Tirzepatide (Mounjaro) 12.5 MG/0.5ML pen-injecto r Tirzepatide (Mounjaro) 12.5 MG/0.5ML pen-injecto r 2023-09 15:37: 51 08-11 00:00 :00 No 12.5mg Q1W Inject 12.5 mg under the skin every 7 days. Ricki Burch ibuprofen 800 MG tablet ibuprofen 800 MG tablet 2023-09 15:36: 53 08-11 00:00 :00 No 1{tbl} Q6H Take 1 tablet by mouth every 6 hours if needed. Ricki Burch metoprolol succinate XL (Toprol-XL) 25 MG 24 hr tablet metoprolol succinate XL (Toprol-XL) 25 MG 24 hr tablet 5-20 00:00: 00 Yes 1{tbl} Take 1 tablet by mouth every morning. Ricki Burch metoprolol succinate XL 25 mg 24 hr tablet 2022-09 0-26 00:00: 00 Yes [id number] 25mg Take 1 tablet by mouth in the morning. 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 [facility] cetirizine (ZYRTEC) 10 mg tablet 04-16 13:57: 45 Yes 10mg Take 1 tablet by mouth in the morning. [facility] Coenzyme Q10 (CO Q-10) 10 mg Cap 04-16 13:57: 45 Yes Take by mouth. [facility] atorvastati n 40 mg tablet 04-16 13:57: 45 Yes 40mg Take 1 tablet by mouth at bedtime. [facility] cyanocobala min, vitamin B-12, (VITAMIN B-12 ORAL) 04-16 13:57: 45 Yes Take by mouth. [facility] vitamin D3-levomefo late 125 mcg (5,000 unit)-15 mg CpDR 04-16 13:57: 45 Yes Take by mouth. [facility] diphenhydrA MINE 25 mg capsule 04-16 13:57: 45 Yes 25mg Take 1 capsule by mouth every 6 (six) hours as needed for Allergies. [facility] foLIC acid 1 mg tablet 04-16 13:57: 45 Yes 1mg Take 1 tablet by mouth in the morning. [facility] thiamine 100 mg tablet 04-16 13:57: 45 Yes 100mg Take 1 tablet by mouth in the morning. [facility] Bisacodyl 5 mg Tab 04-16 13:57: 45 Yes Take by mouth. [facility] fenofibrate micronized 130 mg capsule 04-16 13:57: 45 Yes 130mg Take 1 capsule by mouth daily with breakfast. [facility] ibuprofen 800 mg tablet 04-16 13:57: 45 Yes 800mg Take 1 tablet by mouth every 6 (six) hours as needed. [facility] lisinopriL- hydrochloro thiazide 20-12.5 mg per tablet 04-16 13:57: 45 Yes 1{tbl} Take 1 tablet by mouth in the morning. [facility] omeprazole 40 mg capsule 04-16 13:57: 45 Yes 40mg Take 1 capsule by mouth in the morning. [facility] multivitami n 02-24 21:48: 00 Yes Daily, 0 Refill(s) Ricki Navarro Zyrtec 02-24 21:48: 00 Yes Daily, 0 Refill(s) Ricki Navarro Methocarbam ol 500 MG Oral Tablet [Robaxin] 12-30 21:01: 00 Yes 500 mg = 1 tab, PO, TID, X 30 day, # 90 tab, 0 Refill(s), Pharmacy: [place] [id number] Ricki Navarro Methocarbam ol 750 MG Oral Tablet [Robaxin] 10-14 19:31: 00 No 750 mg = 1 tab, PO, Q8H, PRN Spasms, # 90 tab, 0 Refill(s), Pharmacy: [place] [id number] Ricki Navarro Medrol 4 mg oral tablet 10-14 19:31: 00 No = 1 pkt, PO, ONCE, as directed on package labeling, # 21 tab, 0 Refill(s), Pharmacy: [place] [id number] Ricki Navarro pneumococca l 23-valent vaccine 2017- 14:00: 00 No Notes: (Same as: Pneumovax 23) Refrigerat e Ricki Navarro influenza virus vaccine, inactivated 2016-09 14:00: 00 No Notes: (Same as: Fluzone Quadrivale nt, Fluarix Quadrivale nt) For 3 years of age and older (0.5 mL IM) Shake well before use Ricki Navarro Pepcid 20 mg oral tablet 2016-09 11:52: 00 Yes 20 mg = 1 tab, PO, BID, # 60 tab, 0 Refill(s) Ricki Navarro Medrol Dosepak 4 mg oral tablet 2016-09 11:52: 00 Yes See Instructio ns, PO, Take by mouth as directed on label., # 1 Pack, 0 Refill(s) Ricki Navarro magnesium citrate 1.745 g/30 mL oral liquid 2016-09 11:52: 00 Yes 8.725 gm = 150 ml, PO, ONCE, # 300 ml, 0 Refill(s) Ricki Navarro Flexeril 10 mg oral tablet 2016-09 11:52: 00 Yes 10 mg = 1 tab, PO, TID, X 14 day, # 42 tab, 0 Refill(s) Ricki Navarro Colace 100 mg oral capsule 2016-09 11:52: 00 Yes 100 mg = 1 cap, PO, BID, PRN Constipati on, # 60 cap, 0 Refill(s) Ricki Navarro docusate sodium 100 mg oral capsule 2016-09 02:00: 00 No Notes: (Same as: Colace) (Do Not Crush) Ricki Navarro famotidine 2016-09 02:00: 00 No Notes: (Same as: Pepcid) Ricki Navarro hydrALAZINE 2016-09 00:04: 00 No Notes: (Same as: Apresoline ) Ricki Navarro famotidine (Pepcid) 20 MG tablet famotidine (Pepcid) 20 MG tablet 2016-09 00:00: 00 08-15 00:00 :00 No 20mg QD Take 20 mg by mouth 1 time each day. Ricki Navarro Epic ceFAZolin + sodium chloride 0.9% INJ 100 mL 2016-09 23:00: 00 No Notes: (Same As: Shane Lawrence) MEDICATION WASTE Product Size: 1000 mg Product Wasted: ___ mg Ricki Navarro dexamethaso ne 2016-09 22:00: 00 Yes Notes: Concentrat ion: 4mg/ml Ricki Navarro Robaxin 2016-09 18:00: 00 No Notes: (Same as:Robaxin ) Ricki DOUGHERTY ondansetron 2016-09 16:36: 00 No 4 mg, Route: IVP, ONCE, Dosing Weight 84.091, kg, PRN Nausea & Vomiting, Start date: 07/02/17 11:36:00 CDT Ricki DOUGHERTY naloxone 2016-09 16:36: 00 No 0.4 mg, Route: IVP, Q2MIN, Dosing Weight 84.091, kg, PRN Narcotic Reversal, Start date: 07/02/17 11:36:00 CDT, Duration: 8 doses or times, Stop date: Limited # of times Ricki DOUGHERTY oxyCODONE 2016-09 16:36: 00 No 5 mg, Route: PO, Drug form: TAB, Q4H, Dosing Weight 84.091, kg, PRN Pain Score 4-6, Start date: 07/02/17 11:36:00 CDT, Duration: 30 day, Stop date: 08/01/17 11:35:00 FOOD SCIENCE TECHNICIAN Ricki DOUGHERTY flumazenil 2016-09 16:36: 00 No 0.2 mg, Route: IVP, PRN, Dosing Weight 84.091, kg, PRN Benzodiaze pine Reversal, Initial dose, Start date: 07/02/17 11:36:00 CDT, Duration: 30 day, Stop date: 08/01/17 10:35:00 FOOD SCIENCE TECHNICIAN Ricki DOUGHERTY HYDROmorpho ne 2016-09 16:36: 00 No 0.5 mg, Route: IVP, Q5Min, Dosing Weight 84.091, kg, PRN Pain Score 7-10, Start date: 07/02/17 11:36:00 CDT, Duration: 4 doses or times, Stop date: Limited # of times Ricki Navarro glycopyrrol ate ([facility]) 2016-09 16:36: 00 No Route: IV, Drug form: INJ, ONCE, Stop date: 07/02/17 11:36:00 CDT Memjosiane Navarro neostigmine ([facility]) 2016-09 16:36: 00 No Route: IV, Drug form: INJ, ONCE, Stop date: 07/02/17 11:36:00 CDT Memjosiane Navarro ondansetron ([facility]) 2016-09 16:29: 00 No Route: IV, Drug form: INJ, ONCE, Stop date: 07/02/17 11:29:00 CDT Ricki Navarro ePHEDrine ([facility]) 2016-09 16:29: 00 No Route: IV, Drug form: INJ, ONCE, Stop date: 07/02/17 11:29:00 CDT Lenniejosiane Navarro propofol ([facility]) 2016-09 16:20: 00 No Route: IV, Drug form: INJ, ONCE, Stop date: 07/02/17 11:20:00 CDT Memjosiane Navarro lidocaine ([facility]) 2016-09 16:20: 00 No Route: IV, Drug form: INJ, ONCE, Stop date: 07/02/17 11:20:00 CDT Ricki Navarro fentaNYL ([facility]) 2016-09 16:20: 00 No Route: IV, Drug form: INJ, ONCE, Stop date: 07/02/17 11:20:00 CDT Memjosiane Navarro rocuronium ([facility]) 2016-09 16:20: 00 No Route: IV, Drug form: INJ, ONCE, Stop date: 07/02/17 11:20:00 CDT Memjosiane Navarro dexamethaso ne ([facility]) 2016-09 16:20: 00 No Route: IV, Drug form: INJ, ONCE, Stop date: 07/02/17 11:20:00 CDT Memjosiane Malaveann ceFAZolin ([facility]) 2016-09 16:20: 00 No Route: IV, Drug form: INJ, ONCE, Stop date: 07/02/17 11:20:00 CDT Ricki Navarro midazolam (ANES) 2016-09 16:10: 00 No Route: IV, Drug form: SOLN, ONCE, Stop date: 07/02/17 11:10:00 CDT Lenniejosiane edwin Navarro acetaminoph en (ANES) (ANES) 2016-09 15:48: 00 No Route: IV, Drug form: INJ, Start date: 07/02/17 10:48:00 CDT, Stop date: 07/02/17 11:48:00 CDT Ricki Navarro LR 1000 mL INJ (ANES) 2016-09 15:33: 00 No Route: IV, Total Volume: 1,000, Start date: 07/02/17 10:33:00 CDT, Stop date: 07/02/17 11:33:00 CDT Ricki Navarro ceFAZolin + sodium chloride 0.9% INJ 100 mL 2016-09 15:00: 00 No Notes: (Same As: Shane Lawrence) MEDICATION WASTE Product Size: 1000 mg Product Wasted: ___ mg Ricki Navarro Dextrose 50% Syringe 2016-09 14:51: 00 No 12.5 gm, 25 mL, Route: IVP, Drug Form: INJ, Dosing Weight 84.091, kg, PRN, PRN Blood Glucose Results, Start date: 07/02/17 9:51:00 CDT, Duration: 30 day, Stop date: 08/01/17 8:50:00 FOOD SCIENCE TECHNICIAN Ricki Navarro glucagon 2016-09 14:51: 00 No 1 mg, Route: IM, Drug form: PDR/INJ, PRN, Dosing Weight 84.091, kg, PRN Blood Glucose Results, Start date: 07/02/17 9:51:00 CDT, Duration: 30 day, Stop date: 08/01/17 8:50:00 FOOD SCIENCE TECHNICIAN Ricki Navarro Insulin regular 2016-09 14:50: 00 No 60 units) WASTE: F/P - Black; E - Municipal Trash Bin Stable for 28 days at room temperatur e Expires in days from ____Date Lenniejosiane Malaveann [place] 10/325 oral tablet 2016-09 14:50: 00 No Notes: Do not exceed 4gm/day of acetaminop hen. (Same as: [place] 325/10) Lenniejosiane edwin Navarro phenol topical 0.5% spray 2016-09 14:50: 00 No Notes: Chlorasept ic [place] (Same as: Chlorasept ic, Sore Throat [place]) WASTE: F/P - Black; E - Municipal Trash Bin Lenniejosiane edwin [place] ondansetron 2016-09 14:50: 00 No Notes: (Same as: [place]) MEDICATION WASTE Product Size: 4 mg Product Wasted: ___ mg Lenniejosiane edwin Navarro sodium chloride 0.9% 1000 ml INJ 1,000 mL 2016-09 14:50: 00 No 1,000 mL, Rate: 50 ml/hr, Infuse over: 20 hr, Route: IV, Dosing Weight 84.091 kg, Total Volume: 1,000, Start date: 07/02/17 9:50:00 CDT, Duration: 30 day, Stop date: 08/01/17 9:49:00 FOOD SCIENCE TECHNICIAN Lenniejosiane edwin Navarro morphine Sulfate 2016-09 14:50: 00 No Notes: (Same as:MORPhin e Sulfate) Lenniejosiane edwin Navarro ceFAZolin 2016-09 09:00: 00 No Notes: Same as: Ancef Ricki Navarro magnesium oxide 2016-09 17:33: 00 Yes PO, Daily Ricki Navarro "Sleep-aid with Benadryl" 2016-09 17:33: 00 Yes "Sleep-aid with Benadryl", PO, Bedtime Ricki Navarro azelastine nasal 2016-09 17:33: 00 Yes 2 spray, NASAL, BID Ricki Navarro meloxicam 2016-09 17:33: 00 Yes PO, Daily Ricki Navarro venlafaxine 2016-09 17:33: 00 Yes PO, Daily Ricki Navarro Rhinocort Allergy 32 mcg/inh nasal spray 2016-09 17:33: 00 Yes = 2 spray, NASAL, Daily Memoria edwin Navarro Otezla 2016-09 17:33: 00 Yes 30 mg, PO, BID Memoria edwin Navarro Tums 2016-09 17:33: 00 Yes 500 mg, CHEW, PRN Ricki Navarro levocetiriz ine 2016-09 17:33: 00 Yes PO, QPM Memjosiane Navarro Vicks Sinex Nighttime 2016-09 17:33: 00 Yes 2 cap, PO, Bedtime Memoria edwin Navarro biotin 2016-09 17:33: 00 Yes PO, Daily Memoria edwin Navarro Vitamin D3 oral tablet 2016-09 17:33: 00 Yes 800 IntlUnit = 2 tab, PO, Daily Memoria edwin Navarro CoQ10 2016-09 17:33: 00 Yes 300 mg, PO, Daily Lennieoria edwin Navarro Ex-Lax Regular Strength Pills 15 mg oral tablet 2016-09 17:33: 00 Yes 30 mg = 2 tab, PO, Bedtime Ricki Navarro Immunizations Ordered Immunization Name Filled Immunization Name Date Status Comments Source SARS-COV-2 COVID-19 MODERNA 12+ YRS VACCINE 2020-11-11 00:00:00 Completed [facility] SARS-COV-2 COVID-19 MODERNA 12+ YRS VACCINE 2020-11-11 00:00:00 Completed [facility] SARS-COV-2 COVID-19 MODERNA VACCINE 2020-11-11 00:00:00 Completed [facility] SARS-COV-2 COVID-19 MODERNA 12+ YRS VACCINE 2020-11-11 00:00:00 Completed [facility] SARS-COV-2 COVID-19 MODERNA 12+ YRS VACCINE 2020-11-11 00:00:00 Completed [facility] SARS-COV-2 COVID-19 MODERNA 12+ YRS VACCINE 2020-11-11 00:00:00 Completed [facility] SARS-COV-2 COVID-19 MODERNA 12+ YRS VACCINE 2020-10-14 00:00:00 Completed [facility] SARS-COV-2 COVID-19 MODERNA 12+ YRS VACCINE 2020-10-14 00:00:00 Completed [facility] SARS-COV-2 COVID-19 MODERNA VACCINE 2020-10-14 00:00:00 Completed [facility] SARS-COV-2 COVID-19 MODERNA 12+ YRS VACCINE 2020-10-14 00:00:00 Completed [facility] SARS-COV-2 COVID-19 MODERNA 12+ YRS VACCINE 2020-10-14 00:00:00 Completed [facility] SARS-COV-2 COVID-19 MODERNA 12+ YRS VACCINE 2020-10-14 00:00:00 Completed [facility] pneumococcal 23-valent vaccine 2017-07-03 15:46:00 Completed [facility] pneumococcal 23-valent vaccine 2017-07-03 15:46:00 Completed [facility] SARS-COV-2 COVID-19 MODERNA 12+ YRS VACCINE Unknown Completed [facility] SARS-COV-2 COVID-19 MODERNA 12+ YRS VACCINE Unknown Completed [facility] SARS-COV-2 COVID-19 MODERNA 12+ YRS VACCINE Unknown Completed [facility] SARS-COV-2 COVID-19 MODERNA 12+ YRS VACCINE Unknown Completed [facility] SARS-COV-2 COVID-19 MODERNA 12+ YRS VACCINE Unknown Completed [facility] Vital Signs Vital Name Observation Time Observation Value Comments S ource Heart rate 2024-08-15 12:44:54 115 /min Italo Navarro [facility] Respiratory rate 2024-08-15 12:44:54 19 [facility] Oxygen saturation in Arterial blood by Pulse oximetry 2024-08-15 12:44:54 95 /min [facility] Systolic blood pressure 2024-08-15 12:44:48 116 mm[Hg] [facility] Diastolic blood pressure 2024-08-15 12:44:48 69 mm[Hg] [facility] Body temperature 2024-08-15 12:43:40 37.56 Clemencia [facility] Body height 2024-08-11 16:00:00 167.7 cm Terrence Navarro [facility] Body weight 2024-08-11 16:00:00 88 [facility] 2024-08-11 16:00:00 31.29 kg/m2 Terrence rial [facility] Epic Heart rate 2024-08-15 12:44:54 115 /min [facility] Respiratory rate 2024-08-15 12:44:54 19 /min [facility] Oxygen saturation in Arterial blood by Pulse oximetry 2024-08-15 12:44:54 95 /min [facility] Systolic blood pressure 2024-08-15 12:44:48 116 mm[Hg] [facility] Diastolic blood pressure 2024-08-15 12:44:48 69 mm[Hg] [facility] Body temperature 2024-08-15 12:43:40 37.56 Clemencia [facility] Body height 2024-08-11 16:00:00 167.7 cm Terrence jonelle [place] Epic Body weight 2024-08-11 16:00:00 88 [facility] 2024-08-11 16:00:00 31.29 kg/m2 [facility] Systolic blood pressure 2023-04-16 18:49:00 127 mm[Hg] [facility] Diastolic blood pressure 2023-04-16 18:49:00 78 mm[Hg] [facility] Heart rate 2023-04-16 18:49:00 121 /min [facility] Body temperature 2023-04-16 18:49:00 36.5 Clemencia [facility] Respiratory rate 2023-04-16 18:49:00 18 /min [facility] Body height 2023-04-16 18:49:00 167.6 cm [facility] Body weight 2023-04-16 18:49:00 92.987 kg [facility] BMI 2023-04-16 18:49:00 33.09 kg/m2 [facility] Oxygen saturation in Arterial blood by Pulse oximetry 2023-04-16 18:49:00 93 /min [facility] Height 2019-02-24 21:46:00 167.64 cm [facility] BMI Calculated 2019-02-24 21:46:00 [facility] [place] Weight 2019-02-24 21:46:00 [facility] [place] Heart Rate 2019-02-24 21:46:00 [facility] Temperature Oral (F) 2019-02-24 21:46:00 97.5 F [facility] [place] Systolic (mm Hg) 2019-02-24 21:46:00 [facility] [place] Diastolic (mm Hg) 2019-02-24 21:46:00 [facility] [place] Temperature Oral (F) 2017-12-30 21:47:00 97.9 F [facility] [place] Height 2017-12-30 21:47:00 167.64 cm [facility] Systolic (mm Hg) 2017-12-30 21:47:00 [facility] [place] Diastolic (mm Hg) 2017-12-30 21:47:00 [facility] Weight 2017-08-03 22:22:00 [facility] [place] BMI Calculated 2017-08-03 22:22:00 [facility] [place] Height 2017-08-03 22:22:00 167.64 cm [facility] Heart Rate 2017-08-03 22:22:00 [facility] [place] Temperature Oral (F) 2017-08-03 22:22:00 97.9 F [facility] Systolic (mm Hg) 2017-08-03 22:22:00 [facility] [place] Diastolic (mm Hg) 2017-08-03 22:22:00 [facility] Temperature Oral (F) 2017-07-03 12:58:00 98.0 F [facility] [place] Systolic (mm Hg) 2017-07-03 12:58:00 [facility] [place] Diastolic (mm Hg) 2017-07-03 12:58:00 [facility] Respitory Rate 2017-07-03 12:58:00 [facility] [place] Heart Rate 2017-07-03 12:58:00 [facility] [place] Temperature Oral (F) 2017-07-03 10:16:00 98.2 F [facility] Respitory Rate 2017-07-03 10:16:00 [facility] [place] Systolic (mm Hg) 2017-07-03 10:16:00 [facility] Diastolic (mm Hg) 2017-07-03 10:16:00 [facility] Heart Rate 2017-07-03 10:16:00 [facility] Systolic (mm Hg) 2017-07-03 04:41:00 [facility] Diastolic (mm Hg) 2017-07-03 04:41:00 [facility] Heart Rate 2017-07-03 04:41:00 [facility] [place] Respitory Rate 2017-07-03 04:41:00 [facility] [place] Temperature Oral (F) 2017-07-03 04:41:00 98.1 F [facility] BMI Calculated 2017-07-02 19:03:00 [facility] [place] Weight 2017-07-02 19:03:00 [facility] [place] Height 2017-07-02 19:03:00 167.64 cm [facility] Weight 2017-06-29 20:08:00 [facility] BMI Calculated 2017-06-29 20:08:00 [facility] [place] Height 2017-06-29 20:08:00 167.64 cm [facility] Procedures Procedure Date / Time Performed Performing Clinician Source ECG 12-LEAD 2024-08-16 13:41:[address] [facility] COMPLETE BLOOD COUNT W/DIFF AND PLATELET 2024-08-15 08:26:00 Ketty Lyons [facility] EXTRA SST (GOLD) TOP 2024-08-15 08:26:00 Macarena Hammonds [facility] EXTRA GREEN TOP 2024-08-15 08:26:00 Macarena Hammonds [facility] EXTRA TUBES 2024-08-15 08:26:00 Macarena Hammonds [facility] COMPLETE BLOOD COUNT 2024-08-15 08:26:00 Benny Lyonsso la [facility] AUTOMATED DIFFERENTIAL 2024-08-15 08:26:00 Benny Lyons leonides [facility] BASIC METABOLIC PANEL 2024-08-15 04:58:00 Benny Lyonss jewels [facility] Epic CALCIUM LEVEL IONIZED WHOLE BLOOD 2024-08-14 08:18:00 Benny Lyonssoillian [facility] BASIC METABOLIC PANEL 2024-08-14 04:42:00 Benny Lyonss jewels [facility] COMPLETE BLOOD COUNT W/DIFF AND PLATELET 2024-08-14 04:42:00 Macarena Hammonds [facility] COMPLETE BLOOD COUNT 2024-08-14 04:42:00 Macarena Hammonds [facility] AUTOMATED DIFFERENTIAL 2024-08-14 04:42:00 Rocky Hammonds [facility] ACTH Level 2024-08-14 00:00:00 [facility] CORTISOL 2024-08-13 11:03:00 Ketty Lyons [facility] [place] Epic CORTISOL 2024-08-13 10:16:00 Benny Lyonssolilian [facility] [place] Epic CORTISOL 2024-08-13 05:36:00 Ketty Lyons [facility] [place] Epic EXTRA GREEN TOP 2024-08-13 05:27:00 Macarena Hammonds [facility] EXTRA TUBES 2024-08-13 05:27:00 Macarena Hammonds [facility] COMPLETE BLOOD COUNT W/DIFF AND PLATELET 2024-08-13 05:26:00 Macarena Hammonds [facility] COMPLETE BLOOD COUNT 2024-08-13 05:26:00 Macarena Hammonds [facility] AUTOMATED DIFFERENTIAL 2024-08-13 05:26:00 Rocky Hammonds [facility] T4 FREE 2024-08-12 06:14:00 Ketty Lyons [facility] COMPLETE BLOOD COUNT W/DIFF AND PLATELET 2024-08-12 06:14:00 Macarena Hammonds [facility] EXTRA GREEN TOP 2024-08-12 06:14:00 Macarena Hammonds [facility] EXTRA TUBES 2024-08-12 06:14:00 Macarena Hammonds [facility] CORTISOL, A.M. 2024-08-12 06:14:00 Ketty Lyons Mem [facility]rial [facility] THYROID STIMULATING HORMONE W/ REFLEX FREE T4 2024-08-12 06:14:00 Ketty Lyons [facility] COMPLETE BLOOD COUNT 2024-08-12 06:14:00 Macarena Hammonds [facility] AUTOMATED DIFFERENTIAL 2024-08-12 06:14:00 Rocky Hammonds [facility] RESPIRATORY CARE EVALUATION ONLY 2024-08-11 15:51:03 Macarena Hammonds [facility] XR HIP 2-3 VIEWS RIGHT 2024-08-11 13:25:00 Rocky Hammonds [facility] [place] ARTHRP ACETBLR/PROX FEM PROSTC AGRFT/ALGRFT 2024-08-11 10:00:00 Macarena Hammonds [facility] ARTHROPLASTY, HIP, TOTAL 2024-08-11 10:00:00 Macarena Hammonds [facility] POC GLUCOSE UNSOLICITED RESULTS 2024-08-11 08:39:00 Macarena Hammonds [facility] TRANSTHORACIC ECHO (TTE) COMPLETE W/ CONTRAST 2023-04-24 13:53:34 Casey Armendariz [facility] REFERRAL- REQUEST/RESPONSE 2023-04-15 05:01:00 Doctor Unassigned, [place] [facility] REFERRAL- REQUEST/RESPONSE 2022-01-15 05:01:00 Doctor Unassigned, [place] [facility] Fusion of joint of cervical spine with internal fixation by anterior approach 2017-07-02 05:00:00 [facility] Bilateral tubal ligation [facility] orial [place] section [facility] Hysterectomy [facility] Surgical removal of wisdom tooth [facility] Tonsillectomy [facility] nn EKG 12 lead [facility] Plan of Care Planned Activity Planned Date Details Comments Source Encounters Start Date/Time End Date/Time Encounter Type Admission Type Attending Clinicians Care Facility Care Department Encounter ID Source 2024-09-09 00:00:00 2024-11-09 20:32:52 Results Follow-Up Ketty Lyons [facility] 1.0.114 350.1.13.70 8.2.7.2.686 [id number] Ricki pineda [facility] 2024-10-19 00:00:00 2024-10-21 16:41:06 Refill Casey Armendariz [facility] 1.2840.114 350.1.13.10 4.2.7.2.686 [id number] [facility] 2024-10-14 00:00:00 2024-10-14 16:39:42 Refill Casey Armendariz [facility] 1.2840.114 350.1.13.10 4.2.7.2.686 [id number] [facility] 2024-08-11 07:36:00 2024-08-15 18:36:00 Inpatient Elective MACARENA HAMMONDS [facility] [id number] [facility] 2024-08-11 07:36:00 2024-08-15 18:36:00 Hospital Encounter Macarena Hammonds [facility] 1.2.840.114 350.1.13.70 8.2.7.2.686 [id number] [facility] 2024-08-16 13:41:11 2024-08-11 23:59:00 Inpatient Elective [facility] [id number] [facility] 2024-08-11 08:35:00 2024-08-11 23:59:00 Hospital Encounter Pre-Op/Pacu , Se [facility] 1.2.840.114 350.1.13.70 8.2.7.2.686 [id number] [facility] 2024-08-08 14:57:52 2024-08-08 16:56:27 Outpatient Elective ESE [facility] [id number] [facility] 2024-08-08 00:00:00 2024-08-08 16:47:48 Telephone Pia Maradiaga Micale [facility] 1.2840.114 350.1.13.70 8.2.7.2.686 [id number] [facility] 2023-06-29 00:00:00 2023-06-29 00:00:00 Patient Secure Msg Rupa Armendarizoscar [facility] 1.2840.114 350.1.13.10 4.2.7.2.686 [id number] [facility] 2023-06-28 00:00:00 2023-06-28 00:00:00 Patient Secure Msg Casey Armendariz [facility] 1.2840.114 350.1.13.10 4.2.7.2.686 [id number] [facility] 2023-05-27 00:00:00 2023-05-27 00:00:00 Patient [facility] 1.2.840.114 350.1.13.10 4.2.7.2.686 [id number] [facility] 2023-04-26 00:00:00 2023-04-26 00:00:00 Patient Secure Msg [facility] 1.2.840.114 350.1.13.10 4.2.7.2.686 [id number] [facility] 2023-04-24 08:40:19 2023-04-24 23:59:00 [facility] 1.2.840.114 350.1.13.10 4.2.7.2.686 [id number] [facility] 2023-04-24 07:41:26 2023-04-24 08:39:00 [facility] 1.2.840.114 350.1.13.10 4.2.7.2.686 [id number] [facility] 2023-04-24 07:41:26 2023-04-24 08:39:00 [facility] [id number] [facility] 2023-04-16 13:20:00 2023-04-16 14:13:38 [facility] [id number] [facility] 2023-04-16 13:20:00 2023-04-16 14:13:38 [facility] 1.2.840.114 350.1.13.10 4.2.7.2.686 [id number] [facility] 2023-04-15 00:00:00 2023-04-15 00:00:00 Orders Only Doctor Unassigned, [place] [facility] 1.2840.114 350.1.13.10 4.2.7.2.686 [id number] [facility] 2022-01-17 00:00:00 2022-01-17 00:00:00 Patient Secure Msg Doctor Unassigned, [place] [facility] 1.114 350.1.13.10 4.2.7.2.686 [id number] [facility] 2022-01-15 00:00:00 2022-01-15 00:00:00 Orders Only Doctor Unassigned, [place] [facility] 1.2.114 350.1.13.10 4.2.7.2.686 [id number] [facility] 2020-11-11 13:40:00 2020-11-11 13:40:00 Outpatient [facility] [id number] [facility] 2020-10-14 14:10:00 2020-10-14 14:10:00 Outpatient [facility] [id number] [facility] 2020-06-30 09:00:00 2020-06-30 09:00:00 Outpatient KYUNG BROWN [facility] [id number] [facility] 2020-03-23 00:00:00 2020-03-23 00:00:00 Patient Secure Msg Doctor Unassigned, [place] [facility]PER[facility] 1.840.114 350.1.13.10 4.2.7.2.686 [id number] [facility] 2020-03-21 14:43:47 2020-03-21 15:03:47 Laboratory Only Lab, Adc Fam Pob I [facility] 1.2.840.114 350.1.13.10 4.2.7.2.686 [id number] 2020-03-21 15:00:00 2020-03-21 15:00:00 Outpatient CHRIS ESCAMILLA [facility] [id number] [facility] 2019-02-24 19:40:00 2019-02-25 04:59:59 Outpatient [facility]Flavo r [facility] [id number] Ricki Navarro 2019-02-24 18:44:00 2019-02-25 04:59:00 Outpt Diag Services nullFlavo r [facility] [id number] Ricki Navarro 2019-02-16 19:57:46 2019-02-18 04:59:59 Phone Message nullFlavo r [facility] [id number] Ricki Navarro 2017-12-30 16:15:00 2017-12-31 04:59:59 Outpatient nullFlavo r [facility] [id number] Ricki Navarro 2017-12-30 15:33:00 2017-12-31 04:59:00 Outpt Diag Services nullFlavo r [facility] [id number] Ricki Navarro 2017-12-23 17:07:00 2017-12-25 04:59:59 Phone Message nullFlavo r [facility] [id number] Ricki Navarro 2017-10-14 15:58:00 2017-10-16 05:59:59 Phone Message nullFlavo r [facility] [id number] Ricki Navarro 2017-08-03 19:15:00 2017-08-04 05:59:59 Outpatient nullFlavo r [facility] [id number] Ricki Navarro 2017-07-21 16:23:00 2017-07-23 05:59:59 Phone Message nullFlavo r [facility] [id number] Ricki Navarro 2017-07-02 14:50:00 2017-07-03 16:10:00 Bedded Outpatient nullFlavo r [facility] [id number] Ricki Navarro 2017-07-02 13:00:00 2017-07-02 13:00:00 Outpatient ADRIA CHRISTIANA [id number] Ricki Navarro 2017-06-29 10:30:00 2017-06-29 10:30:00 Outpatient [facility] [id number] [facility] [place] Results Test Description Test Time Test Comments Results Result Co mments Source [facility] EpicExtra [id number] 10:01:12* Test Item Value Reference Range Interpretation Comme nts Hold Specimen (test code = 293) Hold for add-ons. Auto resulted. [facility] EpicExtra [id number] 07:01:42* Test Item Value Reference Range Interpretation Comme nts Hold Specimen (test code = 293) Hold for add-ons. Auto resulted. [facility] EpicT4 [id number] 09:24:14* Test Item Value Reference Range Interpretation Comme nts Free T4 (test code = 3024-7) 1.63 ng/dL 0.89-1.76 The pediatric reference ranges for this test represent a CLSI-based transference of the Siemens study of pediatric reference intervals for the Siemens Atellica analyzer (CLSI EP28). [facility] Laboratory Services has not internally validated these reference ranges and therefore they should be used only in the context of a thorough clinical assessment. Lab Interpretation (test code = 99691-0) Normal [facility] EpicThyroid Stimulating Hormone w/ Reflex Free [id number] 09:08:14* Test Item Value Reference Range Interpretation Comme nts TSH (test code = 02760-6) See_Comment L [Automated messa ge] The system which generated this result transmitted reference range: 0.550 - 4.780 uIU/mL. The reference range was not used to interpret this result as normal/abnormal. Lab Interpretation (test code = 30287-4) Abnormal [facility] EpicExtra [id number] 08:01:36* Test Item Value Reference Range Interpretation Comme nts Hold Specimen (test code = 293) Hold for add-ons. Auto resulted. [facility] EpicPOC [id number] 09:16:28* Test Item Value Reference Range Interpretation Comme nts POC Glu (test code = 4412503349) 122 mg/dL 70-99 H POC Glu Comment 1 (test code = 5575338179) Notified RN/MD POC Performing Location (vandana t code = 6514535487) 3/PreOp Lab Interpretation (test cod e = 80180-7) [facility]-25 01:35:36* Test Item Value Reference Range Interpretation Comme nts Height (test code = 8716813585) 66 in Weight (test code = 9950455902) 205 lbs Systolic BP (test code = 8364456115) 106 mmHg Diastolic BP (test code = 1073470238) 66 mmHg Heart Rate (test code = 5022724909) 108 bpm BSA (test code = 9156802336) 2.02 m2 LVOT diameter (test code = 4713710135) 1.81 cm LVOT area (test code = 5399354294) 2.60 cm2 Ao root diam (test code = 8598489418) 3.20 cm Aortic root (test code = 9583503495) 3.2 cm Ao root annulus (test code = 0516240694) 3.2 cm LA size (test code = 2624249733) 3.1 cm ACS (test code = 3936415625) 1.97 cm PV PEAK VELOCITY (test code = 0553932530) 90.1 cm/s PV peak gradient (test code = 0105469323) 3.2 mmHg LAV(MOD-sp4) (test code = 3611006333) 24.70 mL MV E-F slope (test code = 6536864646) 43.40 cm/s MV Peak E Vonnie (test code = 1872220252) 85.9 cm/s MV Peak A Vonnie (test code = 9717235851) 111.6 cm/s E/A ratio (test code = 0887948913) 0.77 ratio MV valve area p 1/2 method (test code = 2598436819) 4.90 cm2 MV dec slope (test code = 6927241055) 561.10 cm/s2 MV P1/2t max vonnie (test code = 3715551250) 85.40 cm/s LVOT stroke volume (test code = 2665566922) 62.10 cm3 LVOT peak vonnie (test code = 7449818695) 122.1 cm/s LVOT mn grad (test code = 5256410454) 2.9 mmHg AV LVOT peak gradient (test code = 5606434466) 6.0 mmHg LVOT peak VTI (test code = 6501202319) 24.3 cm LV V1 mean (test code = 6613322465) 78.50 cm/s Aortic valve mean velocity (test code = 7708586997) 101.0 cm/s Ao peak vonnie (test code = 4031925604) 166.8 cm/s Ao VTI (test code = 7693239916) 31.8 cm AV area by cont VTI (test code = 1041945280) 2.0 cm2 AV area peak vonnie (test code = 2295406946) 1.9 cm2 Ao max PG (test code = 5670853096) 11.10 mm[Hg] AV peak gradient (test code = 4555039048) 11.1 mmHg AV valve area (test code = 2769008709) 1.96 cm2 AV mean gradient (test code = 1011710329) 4.8 mmHg TR Peak Vonnie (test code = 9257608793) 243.8 cm/s Triscuspid Valve Regurgitation Peak Gradient (test code = 5556619131) 23.8 mmHg MR max PG (test code = 8256013069) 24.10 mm[Hg] MR max vonnie (test code = 7585893501) 245.40 cm/s Mr max vonnie (test code = 1768133976) 245.4 m/s LA Volume Index (BP) (test code = 7510899977) 15.3 mL/m2 LA volume (BP) (test code = 6784277851) 30.9 mL LAV(MOD-sp2) (test code = 4334770489) 32.30 mL LVIDD (test code = 8159575990) 5.10 cm Left Ventricular End Diastolic Volume by Teichholz Method (test code = 6515408) 122.5 mL IVS (test code = 0596972906) 0.88 cm Interventricular Septum Diastolic Thickness by 2D (test code = 0733872) 0.88 cm LVPWD (test code = 1964698099) 1.07 cm PW (test code = 1778073162) 1.07 cm 0.6-1.1 EF(Teich) (test code = 7686165288) 54.00 % LVIDS (test code = 3868691287) 3.70 cm Left Ventricular End Systolic Volume by Teichholz Method (test code = 5418467) 56.3 mL FS (test code = 5512226168) 28 % EF - 2D (test code = 47175323) 54.00 % Radiology Study observation (narrative) (test code = 10706-9) SHARLENE (test code = SHARLENE) ?Left?Ventricle: Left ventricle is mildly dilated. Normal wall thickness. Normal wall motion. Low normal systolic function with a visually estimated EF of 50 - 55%. There is impaired relaxation. ?Tricuspid?Valve: Trace transvalvular regurgitation. Right ventricular systolic pressure is 20-25 mmHg. ?RA pressure is 5-10 mmHg. ?Aorta: Mildly enlarged ascending aorta 3.57cm. ?Left?Atrium: Left atrium is mildly dilated. ?Right?Ventricle: Right ventricle is mildly dilated. Mildly reduced systolic function. ?Pericardium: Small pericardial effusion present. Left VentricleLeft ventricle is mildly dilated. Normal wall thickness. Normal wall motion. Low normal systolic function with a visually estimated EF of 50 - 55%. There is impaired relaxation.Right VentricleRight ventricle is mildly dilated. Mildly reduced systolic function.Left AtriumLeft atrium is mildly dilated.Right AtriumRight atrium size is normal.IVC/SVCRA pressure is 5-10 mmHg.Mitral ValveMitral valve structure is grossly normal. Trace transvalvular regurgitation.Tricusp id ValveTricuspid valve structure is grossly normal. Trace transvalvular regurgitation. Right ventricular systolic pressure is 20-25 mmHg. RA pressure is 5-10 mmHg.Aortic ValveAortic valve opens well.Pulmonic ValvePulmonic valve is grossly normal in structure and function. Trace transvalvular regurgitation.Ascendi ng AortaMildly enlarged ascending aorta 3.57cm.PericardiumSma ll pericardial effusion present.Study DetailsStudy quality was adequate. A complete echocardiogram was performed using 2D, color flow Doppler and spectral Doppler. 5 mL of Lumason ultrasound enhancing agent used. [facility] [id number] 18:30:00* Test Item Value Reference Range Interpretation Comme nts eGFR (test code = eGFR) 101 [id number] 18:30:00* Test Item Value Reference Range Interpretation Comme nts MPV (test code = MPV) 8.3 7.4-10.4 [facility] Consult Notes Date/Time Note Provider Source 2024-08-12 11:45:23 Associated Order(s): IP CONSULT TO CASE MANAGEMENT Noted CM consult. Please see dc planning flowsheet. [facility] 2024-08-12 07:50:27 History Of Present Illness Ewa Dotson is a 59 y.o. female presenting with hip pain. Past Medical History She has a past medical history of Asthma, GERD (gastroesophageal reflux disease), Hypertension, Numbness of toes, Prediabetes, and Sleep apnea treated with continuous positive airway pressure (CPAP). Surgical History She has a past surgical history that includes Tonsillectomy; section, classic; Other strabismus surgery; Cervical fusion; Colonoscopy; Tubal ligation; and Hysterectomy. Social History She reports that she has never smoked. She has never used smokeless tobacco. She reports current alcohol use. She reports that she does not use drugs. Allergies Patient has no known allergies. Medications Medications Prior to Admission Medication Sig Dispense Refill Last Dose/Taking diphenhydrAMINE (BENADryl) 25 MG capsule Take 25 mg by mouth as needed at bedtime. 08/10/2024 at 9:00 PM famotidine (Pepcid) 20 MG tablet Take 20 mg by mouth 1 time each day. 08/10/2024 HYDROcodone-acetaminophen ([place]) 10-325 MG tablet Take 1 tablet by mouth every 6 hours if needed for severe pain (7-10). 08/10/2024 at 9:00 PM lisinopril-hydroCHLOROthiaz manolo 20-12.5 MG tablet Take 1 tablet by mouth every morning. 08/10/2024 at 9:00 AM Magnesium 250 MG capsule Take by mouth. 08/10/2024 at 9:00 AM metoprolol succinate XL (Toprol-XL) 25 MG 24 hr tablet Take 1 tablet by mouth every morning. 08/11/2024 at 5:00 AM traZODone (Desyrel) 50 MG tablet Take by mouth at bedtime. 08/10/2024 Psyllium (METAMUCIL PO) Take 3 tablets by mouth 1 time each day. 08/09/2024 Review of Systems negative except for pain Physical Exam Post op Last Recorded Vitals Blood pressure 96/63, pulse 96, temperature 37 ?C (98.6 ?F), resp. rate 17, height 1.677 m (5' 6.02"), weight 88 kg (194 lb 0.1 oz), SpO2 94%. Relevant Results Assessment & Plan Active Problems: Hypotension [facility] 2024-08-12 05:00:00 [facility] ([facility]) Integrated Hospital Medicine Program CONSULT Chief Complaint Hypotension HPI HPI: Ewa Dotson is a 59 y.o. female POD #1 s/p TOTAL HIP ARTHROPLASTY REPLACEMENT. Hypotension overnight prompted hospitalist consult. Pt in good spirits. Reports moderate post-op pain w/ mm spasms. IV fluids ordered for hypotension; will reevaluate. REVIEW OF SYSTEMS: Review of Systems Constitutional: Negative for appetite change, chills, diaphoresis, fatigue, fever and unexpected weight change. HENT: Negative for congestion, hearing loss, rhinorrhea, sinus pressure and sore throat. Eyes: Negative for visual disturbance. Respiratory: Negative for cough, shortness of breath and wheezing. Cardiovascular: Negative for chest pain, palpitations and leg swelling. Gastrointestinal: Negative for abdominal distention, abdominal pain, constipation, diarrhea, nausea and vomiting. Genitourinary: Negative for dysuria, flank pain and hematuria. Musculoskeletal: Negative for arthralgias. Post-op hip pain per hpi Skin: Negative for color change and rash. Neurological: Negative for dizziness, speech difficulty, light-headedness and headaches. Psychiatric/Behavioral: Negative for behavioral problems and confusion. Assessment & Plan: Consult for hypotension overnight Assessment & Plan Hypotension Postop hypotension -1L IVF bolus; f/u BP monitoring Past Medical History : She has a past medical history of Asthma, GERD (gastroesophageal reflux disease), Hypertension, Numbness of toes, Prediabetes, and Sleep apnea treated with continuous positive airway pressure (CPAP). Past Surgical History : She has a past surgical history that includes Tonsillectomy; section, classic; Other strabismus surgery; Cervical fusion; Colonoscopy; Tubal ligation; and Hysterectomy. Home Medications: Medications Prior to Admission Medication Sig Dispense Refill Last Dose/Taking diphenhydrAMINE (BENADryl) 25 MG capsule Take 25 mg by mouth as needed at bedtime. 08/10/2024 at 9:00 PM famotidine (Pepcid) 20 MG tablet Take 20 mg by mouth 1 time each day. 08/10/2024 HYDROcodone-acetaminophen ([place]) 10-325 MG tablet Take 1 tablet by mouth every 6 hours if needed for severe pain (7-10). 08/10/2024 at 9:00 PM lisinopril-hydroCHLOROthiaz manolo 20-12.5 MG tablet Take 1 tablet by mouth every morning. 08/10/2024 at 9:00 AM Magnesium 250 MG capsule Take by mouth. 08/10/2024 at 9:00 AM metoprolol succinate XL (Toprol-XL) 25 MG 24 hr tablet Take 1 tablet by mouth every morning. 08/11/2024 at 5:00 AM traZODone (Desyrel) 50 MG tablet Take by mouth at bedtime. 08/10/2024 Psyllium (METAMUCIL PO) Take 3 tablets by mouth 1 time each day. 08/09/2024 Allergies: Patient has no known allergies. Social History: She reports that she has never smoked. She has never used smokeless tobacco. She reports current alcohol use. She reports that she does not use drugs. Family History: Family History: Problem Relation Name Age of Onset Multiple sclerosis Mother Physical Exam: PHYSICAL EXAMINATION: Visit Vitals BP 96/63 Pulse 96 Temp 36.8 ?C (98.3 ?F) Resp 18 Ht 1.677 m (5' 6.02") Wt 88 kg (194 lb 0.1 oz) SpO2 94% BMI 31.29 kg/m? OB Status Postmenopausal Smoking Status Never BSA 2.02 m? Physical Exam: Constitutional: General: She is not in acute distress. Appearance: Normal appearance. She is normal weight. HENT: Head: Normocephalic. Mouth/Throat: Mouth: Mucous membranes are moist. Pharynx: Oropharynx is clear. Eyes: Extraocular Movements: Extraocular movements intact. Conjunctiva/sclera: Conjunctivae normal. Cardiovascular: Rate and Rhythm: Normal rate and regular rhythm. Pulmonary: Effort: Pulmonary effort is normal. Breath sounds: Normal breath sounds. No wheezing. Abdominal: General: Bowel sounds are normal. There is no distension. Palpations: Abdomen is soft. Tenderness: There is no abdominal tenderness. Musculoskeletal: Cervical back: Neck supple. Left lower leg: No edema. Comments: Deferred for pt comfort Skin: General: Skin is warm and dry. Findings: No rash. Neurological: General: No focal deficit present. Mental Status: She is alert and oriented to person, place, and time. Mental status is at baseline. Psychiatric: Mood and Affect: Mood normal. Judgment: Judgment normal. Labs & Imaging: LABORATORY DATA: Pertinent Labs : Labs in chart were reviewed. RADIOLOGY DATA: XR hip 2-3 views right Narrative: PROCEDURE INFORMATION: Exam: XR Right Hip Exam date and time: 08/11/2024 1:15 PM Age: 59 years old Clinical indication: R enrike TECHNIQUE: Imaging protocol: Radiologic exam of the right hip. Views: 2 or 3 views hip with pelvis when performed. AP 1 view pelvis with 2 views hip COMPARISON: No relevant prior studies available. FINDINGS: Bones/joints: Three portable postoperative radiographs of the right hip were submitted show an unremarkable appearance of right total hip arthroplasty. No visible complication noted in the submitted images. Moderate symphyseal and bilateral SI joint osteoarthritis. No signs of pelvic ring disruption or instability. [id number] left hip osteoarthritis. Soft tissues: Soft tissue air and edema are in keeping with recent surgery. Lateral trochanteric/gluteal skin closure thom. Gastrointestinal tract: Nonobstructive bowel gas pattern without pneumatosis. Impression: 1. Satisfactory postoperative appearance. 2. Polyarticular degenerative changes as described. ELECTRONICALLY SIGNED BY JO BUCHANAN MD ON 08/11/2024 AT 14:13. Aleja Poe MD Hospital Medicine [facility] Internal Medicine Physician Niyah Navarro 2024-08-12 00:00:00 PATIENT NAME: EWA DOTSON CONTACT SERIAL NUMBER: [id number] DATE OF CONSULT: 08/12/2024 PHYSICAL MEDICINE AND REHABILITATION CONSULTATION REASON FOR CONSULTATION: Thank you, Dr. Hammonds, for this physical medicine and rehabilitation consultation to address the rehab needs of this lady with a right total hip arthroplasty. HISTORY OF PRESENT ILLNESS: This is a very pleasant 59-year-old lady, previously independent with mobility, ADLs, IADLs, bathing, dressing, and grooming. She has had several years of progressive right leg pain and had had imaging. She was found to have advanced degenerative joint disease. She has maintained ambulation, not routinely, using adaptive devices, has continued to work and was becoming progressively difficult to walk. She visited with Dr. Hammonds, who recommended definitive right total hip arthroplasty. She was admitted to [facility] on August 11 for the planned procedure. Surgery was completed yesterday. There were no major intraoperative complications. Postoperatively, she is feeling well. She is having some relative pain. She has had some postoperative hypotension. She is urinating. She has not had a bowel movement. She worked with occupational therapy and was supervision to setup with upper body skills, mod assist with lower body skills. Physical therapy evaluations are pending, but she has been up in the chair throughout the morning. REVIEW OF SYSTEMS: She denies fevers, chills, nausea, vomiting, chest pain, palpitations, headaches, or dizziness. She denies other focal strength or sensation changes. No other bowel or bladder complaints. Mood is fair. Other than stated above, a complete review of systems was done and negative other than the pertinent positives and negatives listed above. PAST MEDICAL HISTORY: Chronic right hip osteoarthritis, tonsillectomy, , GERD, and sleep apnea. CURRENT MEDICATIONS: Reviewed in the EMR. ALLERGIES: No known drug allergies. FAMILY HISTORY: Her father had premature hip arthritis, requiring hip replacement. SOCIAL HISTORY: She lives at home with her who is in good functional health. She works for [email or web address]. She denies current alcohol, tobacco, or drug usage. PHYSICAL EXAMINATION: VITAL SIGNS: Temperature 98.6, heart rate 95, respiratory rate 17, and blood pressure 102/59. GENERAL: Heavyset, no apparent distress, sitting in her room. PSYCH: Alert, oriented, appropriate, pleasant, and cooperative. HEENT: Pupils equal, round, and reactive to light. Extraocular muscles intact. Moist mucous membranes. CV: 2+ bilateral upper extremity pulses. Regular rate and rhythm. PULMONARY: Respirations nonlabored without dyspnea. ABDOMEN: Doughy, nontender. : No Rodriguez. SKIN: No other breakdown. NEUROMUSCULOSKELETAL: Cranial nerves II through XII are intact. Strength is unbreakable in bilateral upper extremities and left lower extremity. Right hip flexion 3/5, knee extension 4/5. Ankle dorsiflexion and great toe extension unbreakable. Right lateral hip incision clean, dry, and intact. LABORATORY DATA: WBC 10.29, hemoglobin 10.4, hematocrit 32.5, and platelets 284. DIAGNOSTIC IMAGING: Right hip x-ray showed right hip total arthroplasty in good position. ASSESSMENT AND PLAN: This is a 59-year-old lady with: 1. End-stage degenerative changes of the right hip, now status post right total hip arthroplasty. Dr. Hammonds, operating surgeon. Weightbearing as tolerated. Continue hip precautions. Initiate rehab therapies as below. DVT prophylaxis is mechanical in addition to Lovenox. 2. Acute postoperative right hip pain in the setting of chronic hip pain: Overall appears adequately controlled for this stage post surgery. Recommend ice, positioning, range of motion, stretching, and a lidocaine patch. She has been taking intermittent [place], which she has not really routinely been on opioids prior to this. She has just recently started over the past couple of months. We would like to have her slowly transition away from the opioid medication class. She has also been taking 800 mg of Advil prior to this. Counseling was provided and we recommended to restrict the NSAID. 3. Rehabilitation for deficits in mobility, ADLs, IADLs, and weakness. We have initiated PT and OT to progress mobility, ADLs, IADLs, identification of adaptive equipment and caregiver training. We discussed goals of early mobilization to prevent complications of bedrest and immobility, which include cardiopulmonary decompensation, weakness, skin breakdown, DVTs, PEs, altered wound healing, and infections. 4. We have discussed that she has undertaken this surgery on an elective basis. We have discussed the acute therapy needs, the early goals of remobilization including bed mobility, transfers, front wheeled walker usage and establishing a program for bathing, dressing, and grooming. We have discussed her hip precautions. She will continue to work with the therapy services. 5. She understands that her insurance provides for outpatient physical therapy. She would like to have that closer to home in the [facility]. They are going to contact physical therapy locations there and that prescription come from her primary orthopedist. We have discussed with the case management team. We are going to continue to follow progressive program and hopefully target rapid progress of goals toward discharge to home. Education was done at the bedside with the patient and her . Thank you for involving me. Dictated by: CARLITOS PUGA MD WBB / ORG [facility] Procedure Notes Date/Time Note Provider Source 2024-08-11 10:00:00 Date: 08/11/2024 Diagnosis: Pre-op Diagnosis * Unilateral primary osteoarthritis, right hip [M16.11] Post-op Diagnosis * Unilateral primary osteoarthritis, right hip [M16.11] Procedures: TOTAL HIP ARTHROPLASTY REPLACEMENT (Right) Surgeons: * Macarena Hammonds - Primary Surgical Fellow: * No surgeons found with a matching role * Anesthesiologist: Prabhakar Giang MD Anesthesia: General EBL: 300 mL Drains: * None in log * Urine Output: None Antibiotics: Orderered Anti-Infectives Indication(s) Dose Route Frequency Provider Last Admin None Facility-Administered Medications Ordered in Other Encounters (Includes Only Antifungals, Anti-Infective Agents - Misc., Antimalarial, Aminoglycosides, Cephalosporins, Penicillins, Antiviral, Fluoroquinolones, Macrolide Antibiotics, Sulfonamides, Tetracyclines, Urinary Anti-infectives) Medication Indication(s) Dose Route Frequency Provider Last Admin ceFAZolin (Ancef) injection Intravenous PRN Hannah Vila CRNA 2 g at 08/11/24 1015 Incision Time: Case Start time not documented Pre-op Beta Nova: CPB (mins): Crossclamp Time: IVF: Transfusions: PRBC , jumbo FFP , jumbo platelets , cryoprecipitate Cell Saver (units): Meds: Wound Closure Type: Primary Closure (any portion of the skin closed or approximated) Wound Class: Clean Surgical Status: Elective: able to defer w/o increased risk Anticipating return to OR: Anticipated Return to OR: No Is this patient on therapeutic antibiotics? Patient on theraputic antibiotics?: Yes Date: 08/11/2024 Diagnosis: Pre-op Diagnosis * Unilateral primary osteoarthritis, right hip [M16.11] Post-op Diagnosis * Unilateral primary osteoarthritis, right hip [M16.11] Procedures: TOTAL HIP ARTHROPLASTY REPLACEMENT (Right) Surgeons: * Macarena Hammonds - Primary Media Liaison Officer: * No surgical staff found * Anesthesia: General Estimated Blood Loss: 200 CC Drains: * None in log * Urine Output: None Findings: DEGENRATIVE JOINT DISEASE MODERATE OF RIGHT HIP OPEN WITH FEMORAL NECK OSTEOTOMY Hip Approach: POSTEROLATERAL The patient was not discharged to home for medical reasons. Disposition: PACU Condition: stable Attending Attestation: I was present and scrubbed for the entire procedure. Document Complications/Transfusions/Implants? None Procedure for cancer: Procedure for Cancer?: No Dictation number: Patient brought to the operating suite placed in supine position with the plan to perform pain. Patient placed in the left lateral decubitus decubitus position.: The stabilization table. The right hip flank and leg were then prepped with alcohol forcep. The leg was sterilely draped in usual fashion. She began to making incision at the tip of the greater trochanter continue with distally down the lateral aspect of the thigh and then approximately a curvilinear manner across the buttock posteriorly. Subcutaneous tissue dissected down to the retroperitoneal fascia. The fascia was split longitudinally at the level of the abductor. The iliofemoral fascia was split longitudinally down the leg. Bleeding controlled electrocautery.. The wound was filled with a GelPort retractor. The trochanteric bursa was stuck to the edge of the trochanter with the multiple effusions. This is greatly dissected off inferiorly. With the hip in slight internal rotation the abductor strength. For this we will release from the edge of the neck. The leads were left to retract. The hip was dislocated. The template for osteotomy of the femur osteotomy was performed at the end of the neck of the femur. The head was removed along with a portion of the neck. Close exposing the acetabulum. The acetabulum was thoroughly debrided removing the edges with electrocautery. Bleeding controlled electrocautery. Anterior posterior retractors were inserted. Further debridement of the acetabulum was performed with curettes and specifically of the fovea centralis. The reamers were then used to ream the acetabular cup size 53. Bone graft was saved. The putty and curtains mixed with some of the leftover close Of the acetabulum was then placed into the decorticated area of the fovea centralis. A trial implant was inserted. Placed in the appropriate position according to the use positioning device. Cos Cob to be adequate therefore a 54 cup was then chosen and impacted into place and secured with 6.5 x 20 screws 2 of these to 25 mm screws into the acetabulum. The inner cuff was then inserted and impacted into place inside this acetabular cup. Seated appropriately such that smooth rolled edges. The wound was attended to. With elevation of the hips. A Lazy Angel cutter was used to remove a portion of the bone more central portion proximal femur (followed by a drill bit at the femur followed by reverse which was reamed to a size 9. This was followed by broaches working with canal up to a size 9. The #9 broach was left in place and a standard neck and head. Inserted. The hip was located FELT that there was no telescoping was normal flexion to 90 degrees extension and abduction internal/external rotation all stable. Hip however did not have a tendency to dislocate the hip and the more than 90 degrees of flexion of the internal rotation. Therefore these components were chosen and a #9 final stem was impacted into place after removing the trial. The head is a 28 m head 0. This was impacted in place. The hip was relocated. Through range of motion. This was a active head with side of the chest. Wound then thoroughly irrigated with normal saline solution. Remainder of the bone graft placed over the lateral aspect of the slightly protruding acetabular cup. The abductor was resutured with the above and the fascia closed with the balloon quite suture. Subcutaneous tissue with 2-0 Vicryl and the skin with skin clips. Compressive dressings applied. Patient placed supine with potential admission Findings: Disposition: PACU Condition: stable SCIENCE TECHNICIAN Niyah Lovell Date/Time Note Provider Source [id number] [facility]38[facility]18 [facility]:38[facility]18 [facility]wd[facility]4764[facility]-02 20:38:18 [facility]dh[facility]wy6544-63-33 13:09:34 Images from the original note were not included. Ewa Dotson is a 59 year old female [facility]2025-02-07 16:35:53 JUSTUS 04/2023 NOV not scheduled We have attempted to contact patient twice to follow up for further refills. LVM asking patient to return call to clinic to schedule. SCIENCE TECHNICIAN Joanna Camargo [facility]NL[facility] HospitalVlrynq3608-20-27 14:31:17 Images from the original note were not included. Ewa Dotson is a 59 year old female [facility]2024-12-11 00:38:22* Auth/Cert (Routine) Specialty Diagnoses / Procedures Referred By Tray giordano Referred To Contact Diagnoses Unilateral primary osteoarthritis, right hip Unilateral primary osteoarthritis, right hip [M16.11] Procedures [place] ARTHRP ACETBLR/PROX FEM PROSTC AGRFT/ALGRFT TOTAL HIP ARTHROPLASTY REPLACEMENT Macarena Hammonds MD [address] [place] [address] Phone: tel: fax: [facility] (Main Operating Room) [address] [facility] [place] [address] Phone: tel: Referral ID Status Reason Start Date Expiration Date Visits Re quested Visits Authorized [id number] [address] [place], [place] [address]2024-12-11 00:38:22* Audit-C Score Answer Date of Assessment Author 5 08/11/2024 6:33 PM FOOD SCIENCE TECHNICIAN Gabe Yañez RN * Intimate Partner Violence Question Answer Date of Assessment Author Within the last year, have y ou been humiliated or emotionally abused in other ways by your partner or ex-partner? No 08/11/2024 6:33 PM FOOD SCIENCE TECHNICIAN Gabe Quintanilla RN Within the last year, have y ou been afraid of your partner or ex-partner? No 08/11/2024 6:33 PM FOOD SCIENCE TECHNICIAN Gabe Yañez R N Within the last year, have y ou been raped or forced to have any kind of sexual activity by your partner or ex-partner? No 08/11/2024 6:33 PM Gabe Mayfield R N Within the last year, have y ou been kicked, hit, slapped, or otherwise physically hurt by your partner or ex-partner? No 08/11/2024 6:33 PM Gabe Mayfield R N * * Calculated C-SSRS Risk Score (Lifetime/Recent) Answer Date of Assessment Author No Risk Indicated 08/11/2024 6:39 PM Gabe Mayfield RN * [place] Suicide Severity Rating Scale (Screener/Recent Self-Report) Question Answer Date of Assessment Author 1. Wish to be (Past 1 Month) No 024 6:39 PM Gabe Mayfield RN 2. Non-Specific Active Suici mann Thoughts (Past 1 Month) No 08/11/2024 6:39 PM Luis Mayfield RN 6. Suicidal Behavior (Lifetime) No 6:39 PM Gabe Mayfield RN [facility]Mtopsxz2424-92-36 00:38:22Pending Results Health Maintenance Due Date Last Done Comments CT Colonography 1964 Colonoscopy 1964 Colorectal Cancer Screening 1964 FIT-DNA 1964 FIT 1964 FOBT 1964 Lipid Panel 1964 Sigmoidoscopy 1964 Annual Physical 02/27/1967 DTaP/Tdap/Td Vaccines (1 - Tdap) 02/27/1983 Pap Smear 02/27/1985 Cervical Cancer Screening 02/27/1994 HPV/Cotest 02/27/1994 Mammogram 2004 Pneumococcal Vaccine: Pediat rics (0 to 5 Years) and At-Risk Patients (6 to 64 Years) (2 of 2 - PCV) 07/03/2018 07/03/2017 Zoster Vaccines (2 of 2) 09/02/2021 07/08/2021 Respiratory Syncytial Virus (RSV) or >=60 (1 - Risk 60-74 years 1-dose series) 2024 Influenza Vaccine (#1) 2024 07/03/2023 HIB Vaccines Aged Out No longer eligi ble based on patient's age to complete this topic HPV Vaccines Aged Out No longer eligi ble based on patient's age to complete this topic Hepatitis A Vaccines Aged Out No long er eligible based on patient's age to complete this topic Hepatitis B Vaccines Aged Out No long er eligible based on patient's age to complete this topic IPV Vaccines Aged Out No longer eligi ble based on patient's age to complete this topic Meningococcal Vaccine Aged Out No cuba lourdes eligible based on patient's age to complete this topic Rotavirus Vaccines Aged Out No longer eligible based on patient's age to complete this topic [place] 09948-12-11 00:38:22 [place] 09948-12-11 00:38:22 [place] 09948-12-09 18:36:39* Consultation (Routine) - Pending Review Specialty Diagnoses / Procedures Referred By Tray giordano Referred To Contact Endocrinology Diagnoses Hypotension, unspecified hypotension type Procedures [place] OFFICE/OUTPATIENT [facility] 60-[place] [address] [place] [address] Phone: tel: fax: Referral ID Status Reason Start Date Expiration Date Visits Requested Visits Authorized [id number] Pending Review Specialty Services Required 08/15/2024 02/11/2025 1 1 [facility]2024-12-09 18:36:39* Auth/Cert (Routine) Specialty Diagnoses / Procedures Referred By Tray giordano Referred To Contact Diagnoses Unilateral primary osteoarthritis, right hip Unilateral primary osteoarthritis, right hip [M16.11] Procedures [place] ARTHRP ACETBLR/PROX FEM PROSTC AGRFT/ALGRFT TOTAL HIP ARTHROPLASTY REPLACEMENT Macarena Hammonds MD [address] [place] [address] Phone: tel: fax: [facility] (Main Operating Room) [address] [facility] [place] [address] Phone: tel: Referral ID Status Reason Start Date Expiration Date Visits Re quested Visits Authorized [id number] 1 1 [id number] 18:36:39 [id number] 18:36:39* Audit-C Score Answer Date of Assessment Author 5 08/11/2024 6:33 PM FOOD SCIENCE TECHNICIAN Gabe Yañez RN * Intimate Partner Violence Question Answer Date of Assessment Author Within the last year, have y ou been humiliated or emotionally abused in other ways by your partner or ex-partner? No 08/11/2024 6:33 PM FOOD SCIENCE TECHNICIAN Gabe Quintanilla RN Within the last year, have y ou been afraid of your partner or ex-partner? No 08/11/2024 6:33 PM FOOD SCIENCE TECHNICIAN Gabe Yañez R N Within the last year, have y ou been raped or forced to have any kind of sexual activity by your partner or ex-partner? No 08/11/2024 6:33 PM FOOD SCIENCE TECHNICIAN Gabe Yañez R N Within the last year, have y ou been kicked, hit, slapped, or otherwise physically hurt by your partner or ex-partner? No 08/11/2024 6:33 PM FOOD SCIENCE TECHNICIAN Gabe Yañez R N * * Calculated C-SSRS Risk Score (Lifetime/Recent) Answer Date of Assessment Author No Risk Indicated 08/11/2024 6:39 PM FOOD SCIENCE TECHNICIAN Gabe Yañez RN * [place] Suicide Severity Rating Scale (Screener/Recent Self-Report) Question Answer Date of Assessment Author 1. Wish to be (Past 1 Month) No 024 6:39 PM Gabe Mayfield RN 2. Non-Specific Active Suici mann Thoughts (Past 1 Month) No 08/11/2024 6:39 PM Luis Mayfield RN 6. Suicidal Behavior (Lifetime) No 6:39 PM Gabe Mayfield RN [facility] [id number] 18:36:39* Macarena Hammonds MD - 08/15/2024 1:40 PM FOOD SCIENCE TECHNICIAN Discharge Diagnosis Hypotension Hospital Course Patient tolerated the procedure well and has been mobiilizedl however had problem with hypotension and has been diagnosed with Addisons disease ost likely and will be referred to an endocorinologist for further work up She has been afebrile and on a regular diet and seems to be improved, her H and H is low but will return with time to normal Information Provided to Patient/Family I discussed with the patient/family details of the stay. See After Visit Summary which were revieweatient d and shared with patient/family. Operative Procedures Performed Procedure(s): TOTAL HIP ARTHROPLASTY REPLACEMENT Procedurettotal hip relplacement Pertinent Physical Exam At Time of Discharge Physical Exam:patient has hematoma at wound site but incision is intacat Patient Condition at Discharge patient is ambulatory and self sufficient and has the appropriate ads at home Disposition Home [1] Discharge Medications Stopped diphenhydrAMINE (BENADryl) 25 MG capsule - 25 mg Nightly PRN famotidine (Pepcid) 20 MG tablet - 20 mg Daily HYDROcodone-acetaminophen ([place]) 10-325 MG tablet - 1 tablet Every 6 hours PRN lisinopril-hydroCHLOROthiazide 20-12.5 MG tablet - 1 tablet Every morning Magnesium 250 MG capsule Psyllium (METAMUCIL PO) - 3 tablet Daily traZODone (Desyrel) 50 MG tablet - Nightly Continued metoprolol succinate XL (Toprol-XL) 25 MG 24 hr tablet - 1 tablet Every morning Test Results Pending At Discharge Pending Labs Order Current Status ACTH Level In process Issues Requiring Follow-Uppatient will need to have a follow up for suture removal Outpatient Follow-UpNo future appointments.in one week for suture removal SCIENCE TECHNICIAN * Macarena Hammonds MD - 08/15/2024 1:40 PM FOOD SCIENCE TECHNICIAN Date of Admission: Patient was admitted on 08/11/2024 7:36 AM Date of Discharge: Discharge order was placed on 08/15/2024 Hospital Course: Hospital course unremarkable. Patient meets discharge criteria. Discharge instructions reviewed by the nurse. Discharge Diagnosis: Post-op Diagnosis * Unilateral primary osteoarthritis, right hip [M16.11] hypotension Discharge Disposition: Home [1] Follow Up: Follow up as per discharge instructions. Information Provided to Patient/Family I discussed with the patient/family details of the stay. See After Visit Summary for more information. SCIENCE TECHNICIAN SCIENCE TECHNICIAN [facility] [id number] 18:36:39* Jenise Zhang PTA - 08/15/2024 4:47 PM FOOD SCIENCE TECHNICIAN Physical Therapy Treatment Note Patient Name: Ewa Dotson Patient [place] [address] [address] Today's Date: 08/15/2024 Start Time: 1446 Stop Time: 1507 Preferred Language: Finnish RN cleared pt for therapy. AM-PAC Basic Mobility: Turning in bed without bedrails: None Lying on back to sitting on edge of flat bed: None Bed to chair: None Standing up from chair: None Walk in room: None Climbing 3-5 stairs: A Little Mobility Inpatient Raw Score: 23 -[facility] Goal: 7 Assessment PT Assessment: pt amb with good strength hip precautions reviewedw with pt Evaluation/Treatment Tolerance: Patient tolerated treatment well Therapy discharge recommendations are made by determining the patient's prior level of function, assessing current function level and establishing rehab potential. The overall discharge plan may be affected by input from Physicians, Care Coordination, medical condition/status, family support and insurance benefits. Pain:Pain Score: 0 (prior to PT tx) Pain Rating Scale (DVPRS): Notice pain, does not interfere with activities (post PT tx) Objective Gait Training: Gait Training Time Entry: 21 Gait Training Activity:Distance (enter in feet): 200 Assistive Devices And Adaptive Equipments: Walker, front-wheeled Level of Assistance 1: Supervision/touching assistance At end of session:RN notified, in chair, family/visitor at bedside, and call gomes in reach Patient Education:Education Documentation Home Exercise Program, taught by Jenise Zhang PTA at 08/15/2024 4:46 PM. Learner: Family, Patient Readiness: Acceptance Method: Explanation, Demonstration Response: Verbalizes Understanding, Demonstrated Understanding Precautions, taught by Jenise Zhang PTA at 08/15/2024 4:46 PM.Learner: Family, Patient Readiness: Acceptance Method: Explanation, Demonstration Response: Verbalizes Understanding, Demonstrated Understanding Durable Medical Equipment, taught by Jenise Zhang PTA at 08/15/2024 4:46 PM. Learner: Family, Patient Readiness: Acceptance Method: Explanation, Demonstration Response: Verbalizes Understanding, Demonstrated Understanding Mobility, taught by Jenise Zhang PTA at 08/15/2024 4:46 PM.Learner: Family, Patient Readiness: Acceptance Method: Explanation, Demonstration Response: Verbalizes Understanding, Demonstrated Understanding Positioning, taught by Jenise Zhang PTA at 08/15/2024 4:46 PM.Learner: Family, Patient Readiness: Acceptance Method: Explanation, Demonstration Response: Verbalizes Understanding, Demonstrated Understanding Physical Therapy Plan of Care, taught by Jenise Zhang PTA at 08/15/2024 4:46 PM. Learner: Family, Patient Readiness: Acceptance Method: Explanation, Demonstration Response: Verbalizes Understanding, Demonstrated Understanding Education CommentsNo comments found. Supervising Therapist Name: Treatment Note: If this is the last documented treatment, then it will signify discharge from acute care prior to discharge from the therapy service and will serve as the discharge summary. Jenise Zhang PTA SCIENCE TECHNICIAN * Carlitos Puga Jr., MD - 08/15/2024 12:22 PM FOOD SCIENCE TECHNICIAN [facility] Physical Medicine and Rehabilitation Progress Note Chief Complaint/Identification Ewa Dotson is a 59 y.o. female admitted to inpatient rehabilitation for Unilateral primary osteoarthritis, right hip [M16.11] Degenerative joint disease (DJD) of hip [M16.9] and is being seen for ongoing rehab needs. The patient's medical records have been reviewed. Interval Events/Subjective. Discussed with nursing. No overnight events Denies fevers, chills, nausea, vomiting, shortness of breath, chest pain, palpitations, headaches, dizziness. Pain is not limiting therapies. No bowel or bladder complaints. Pain controlled. Last Bowel Movement: Last BM Date: 08/13/24 Medications: docusate sodium, 100 mg, Oral, BID enoxaparin, 40 mg, Subcutaneous, q24h famotidine, 20 mg, Oral, Daily [Held by provider] lisinopril, 20 mg, Oral, Daily And [Held by provider] hydroCHLOROthiazide, 12.5 mg, Oral, Daily influenza vaccine, 0.5 mL, Intramuscular, During hospitalization lidocaine, 1 patch, Apply externally, Daily [Held by provider] metoprolol succinate XL, 25 mg, Oral, q AM polycarbophil, 625 mg, Oral, Daily polyethylene glycol (PEG) 3350, 17 g, Oral, Daily traZODone, 50 mg, Oral, Nightly PRN medications: acetaminophen, cyclobenzaprine, diphenhydrAMINE, HYDROcodone-acetaminophen, HYDROmorphone ObjectiveVitals: 08/15/24 0342 08/15/24 0814 08/15/24 0815 08/15/24 0815 BP: 114/65 Pulse: 100 96 Resp: 16 19 Temp: 37.1 ?C (98.7 ?F) SpO2: 95% 95% GENERAL: Heavyset, no apparent distress, sitting in her room.PSYCH: Alert, oriented, appropriate, pleasant, and cooperative. HEENT: Pupils equal, round, and reactive to light. Extraocular muscles intact. Moist mucous membranes. CV: 2+ bilateral upper extremity pulses. Regular rate and rhythm. PULMONARY: Respirations nonlabored without dyspnea. ABDOMEN: Doughy, nontender. : No Rodriguez. SKIN: No other breakdown. NEUROMUSCULOSKELETAL: Cranial nerves II through XII are intact. Strength is unbreakable in bilateral upper extremities and left lower extremity. Right hip flexion 3/5, knee extension 4/5. Ankle dorsiflexion and great toe extension unbreakable. Right lateral hip incision clean, dry, and intact. Labs Pertinent Labs : Labs in chart were reviewed. Lab Results Component Value Date WBC 6.07 08/15/2024 Hgb 9.6 (L) 08/15/2024 Hct 29.7 (L) 08/15/2024 Plt Count 278 08/15/2024 Imaging:XR hip 2-3 views right Narrative: PROCEDURE INFORMATION: Exam: XR Right Hip Exam date and time: 08/11/2024 1:15 PM Age: 59 years old Clinical indication: R enrike TECHNIQUE:Imaging protocol: Radiologic exam of the right hip. Views: 2 or 3 views hip with pelvis when performed. AP 1 view pelvis with 2 views hip COMPARISON:No relevant prior studies available. FINDINGS:Bones/joints: Three portable postoperative radiographs of the right hip were submitted show an unremarkable appearance of right total hip arthroplasty. No visible complication noted in the submitted images. Moderate symphyseal and bilateral SI joint osteoarthritis. No signs of pelvic ring disruption or instability. Uplm-yx-ccpythix left hip osteoarthritis. Soft tissues: Soft tissue air and edema are in keeping with recent surgery. Lateral trochanteric/gluteal skin closure thom. Gastrointestinal tract: Nonobstructive bowel gas pattern without pneumatosis. Impression: 1. Satisfactory postoperative appearance. 2. Polyarticular degenerative changes as described. ELECTRONICALLY SIGNED BY JO BUCHANAN MD ON 08/11/2024 AT 14:13. Assessment & Plan Patient Active Problem ListDiagnosis Asthma Gastroesophageal reflux disease Psoriasis Simple obesity Cervical stricture or stenosis Adrenal insufficiency (Wharton's disease) (HCC) Subclinical hyperthyroidism Acute blood loss anemia S/P total right hip arthroplasty Essential hypertension ASSESSMENT AND PLAN:This is a 59-year-old lady with: End-stage degenerative changes of the right hip, now status post right total hip arthroplasty. Dr. Hammonds, operating surgeon. Weightbearing as tolerated. Continue hip precautions. Continue rehab therapies as below. DVT prophylaxis is mechanical in addition to Lovenox. Acute postoperative right hip pain in the setting of chronic hip pain: Overall appears adequately controlled for this stage post surgery. Recommend ice, positioning, range of motion, stretching, and a lidocaine patch. She has been taking intermittent [place], which she has not really routinely been on opioids prior to this. She has just recently started over the past couple of months. We would like to have her slowly transition away from the opioid medication class. She has also been taking 800 mg of Advil prior to this. Counseling was provided and we recommended to restrict the NSAID. Rehabilitation for deficits in mobility, ADLs, IADLs, and weakness. We have initiated PT and OT to progress mobility, ADLs, IADLs, identification of adaptive equipment and caregiver training. We discussed goals of early mobilization to prevent complications of bedrest and immobility, which include cardiopulmonary decompensation, weakness, skin breakdown, DVTs, PEs, altered wound healing, and infections. She understands that her insurance provides for outpatient physical therapy.She would like to have that closer to home in the [facility]. They are going to contact physical therapy locations there and that prescription come from her primary orthopedist. We have discussed with the case management team. We are going to continue to follow progressive program and hopefully target rapid progress of goals toward discharge to home. Education was done at the bedside with the patient and her . -PT: Pt seated in recliner chair upon arrival. Pt performed and donna well hanny activities today w improvement in gait distance comparing previous session Min A RW cont VC for proper gait pattern and RW management. Pt returned to recliner chair. All needs met. RN informed. Pt c/o Hip pain upon arrival but agreed on PT today. Pt donna well tx today. Pt performed Bed mob w Min A. Pt performed STS CGA>Min A cont VC. Pt performed Gait training x10 FT around the bed w RW Mod A and completed Bed>chair transfer Stand>sit recliner chair. Pt edu for hip prec. Pt maintained WBAT R LE at all times. -OT: last evaluation on 08/12. Need updated note with focus on LBD and Toileting. Thank you for involving me. Rehabilitation for deficits in mobility, activities of daily living, instrumental activities of daily living, weakness, incoordination and balance, due to the above: General Rehabilitation Bowel/Bladder/Skin Care/Sleep Wake cycle optimization Sleep: Monitor sleep/wake cycles Recommend good sleep hygiene. Recommend a quiet dark room during sleeping hours Bowel: Monitor for daily bowel movements Senna 100 mg BID Colace 8.6 mg BID Bisacodyl suppository prn Bladder Montior for urinary retention Skin Monitor skin. Turn patient q2h Elevate Heels DVT ppx:- Diet:Adult Diet Regular Code Status:No Order Barriers: Pain, No family support, Limited safety awareness, and Long standing deficits I spent 52 minutes caring for this patient today, reviewing labs and recordsfrom another provider, obtaining the history, performing the physical exam, documenting in the record and arranging for the following: [x] Counseling/education [] Ordering medications [] Ordering tests [] Ordering procedures [] Consulting providers [x] Documentation of clinical information [x] Independently interpreting clinical results and communicating results to patient/family/caregiver [x] Care coordination with therapy/CM/consultants SCIENCE TECHNICIAN * Ketty Lyons MD - 08/15/2024 7:58 AM FOOD SCIENCE TECHNICIAN Images from the original note were not included. [facility] ([facility]) [facility] Medicine Program Progress Note Patient:Ewa Dotson CODE Status: No OrderBirth Date:1965 Admission Date:08/11/2024 Attending:Macarena Hammonds MD LOS: 4days Reason for visit:Hypotension Subjective Patient seen and examined at the bedside. Vital signs stable. No acute events overnight. BP is stable. Slightly tachycardic. She states her pain is well controlled. Physical Exam: PHYSICAL EXAMINATION: Visit VitalsBP 120/66 Pulse 100 Temp 37.3 ?C (99.2 ?F) Resp 16 Ht 1.677 m (5' 6.02") Wt 88 kg (194 lb 0.1 oz) SpO2 95% BMI 31.29 kg/m? OB Status Postmenopausal Smoking Status Never BSA 2.02 m? Physical Exam Vitals reviewed.Constitutional: General: She is not in acute distress. Appearance: She is obese. She is not ill-appearing or toxic-appearing. HENT: Head: Normocephalic and atraumatic. Cardiovascular: Rate and Rhythm: Normal rate and regular rhythm. Pulses: Normal pulses. Pulmonary: Effort: Pulmonary effort is normal. Abdominal: General: Bowel sounds are normal. There is no distension. Palpations: Abdomen is soft. Skin: Coloration: Skin is not jaundiced or pale. Neurological: General: No focal deficit present. Mental Status: She is alert and oriented to person, place, and time. Psychiatric: Mood and Affect: Mood normal. Behavior: Behavior normal. Current Medications: ceFAZolin (Ancef) 2 g in sterile water injection, 2 g, Intravenous, q8h docusate sodium, 100 mg, Oral, BID enoxaparin, 40 mg, Subcutaneous, q24h famotidine, 20 mg, Oral, Daily [Held by provider] lisinopril, 20 mg, Oral, Daily And [Held by provider] hydroCHLOROthiazide, 12.5 mg, Oral, Daily influenza vaccine, 0.5 mL, Intramuscular, During hospitalization lidocaine, 1 patch, Apply externally, Daily [Held by provider] metoprolol succinate XL, 25 mg, Oral, q AM polycarbophil, 625 mg, Oral, Daily polyethylene glycol (PEG) 3350, 17 g, Oral, Daily traZODone, 50 mg, Oral, Nightly PRN medications: acetaminophen, cyclobenzaprine, diphenhydrAMINE, enoxaparin, HYDROcodone-acetaminophen, HYDROmorphone Current Diet:Adult Diet Regular Input/Output: Intake/Output Summary (Last 24 hours) at 08/15/2024 0758Last data filed at 08/14/2024 1706 Gross per 24 hour Intake 830 ml Output -- Net 830 ml Labs & Imaging: Labs: Results from last 7 days Lab Units 08/14/24 0442 WBC 10*3/uL 6.31 HEMOGLOBIN g/dL 8.8* HEMATOCRIT % 27.3* PLATELETS 10*3/uL 220 LYMPHOCYTES % 27.1 MONOCYTES % 12.5* Results from last 7 daysLab Units 08/15/24 0458 08/11/24 0839 08/08/24 1613 SODIUM mEq/L 136 < > 136 POTASSIUM mEq/L 3.6 < > 4.3 CHLORIDE mEq/L 103 < > 102 CO2 mEq/L 28.4 < > 29.8 BUN mg/dL 9 < > 12 CREATININE mg/dL 0.58 < > 0.80 CALCIUM mg/dL 7.7* < > 9.4 PROTEIN TOTAL g/dL -- -- 7.3 BILIRUBIN TOTAL mg/dL -- -- 0.38 ALK PHOS U/L -- -- 81 ALT U/L -- -- 29 AST U/L -- -- 32 GLUCOSE mg/dL 135* < > 130* POC GLUCOSE -- < > -- < > = values in this interval not displayed. Imaging: Assessment & Plan: 59-year-old female with a medical history significant for essentialhypertension, dyslipidemia, class II obesity and LUIS who presented for an elective right hip arthroplasty. Hospitalist medicine was consulted due to postop hypotension. Assessment & Plan Adrenal insufficiency (Wharton's disease) (HCC) AM cortisol was 3.98; Cosyntropin test result 08/14/24 Precosyntropin cortisol 8.35, 30 minutes post cosyntropin : Cortisol 18 Cortisol post 60 minutes cosyntropin administration 37 Above results reveal appropriate response However given severely low initial AM cortisol, I suspect some degree of adrenal insufficiency I have discussed these results with patient and recommend outpatient endocrinology evaluation ACTH level pending Endocrinology referral at discharge Subclinical hyperthyroidism TSH low; Free T4 WNL OP Endocrinology follow up Acute blood loss anemia Hgb 9.6; stable Secondary to fracture + Ortho surgery Monitoring Transfuse for Hgb< 7 S/P total right hip arthroplastyOn 08/11/24 DVT Prophylaxis PT/OT Bowel regimen IPR following Essential hypertensionBP stable I recommend discontinuing Lisinopril+ hydrochlorothiazide She may resume Metoprolol DVT prophylaxis: enoxaparin - 40 mg/0.4mL, 40 mg/0.4mL Disposition Plan: Medically clear for discharge to home or IPR [facility] SCIENCE TECHNICIAN * Molly Valladares Rendon, DONATION WORKER - 08/14/2024 10:10 AM FOOD SCIENCE TECHNICIAN Physical Therapy Treatment Note Patient Name: Ewa Dotson Patient Location: [place] [address]/[facility] [place] [facility] Today's Date: 08/14/2024 Start Time: 1110 Stop Time: 1150 Preferred Language: Finnish RN cleared pt for therapy. AM-PAC Basic Mobility: Turning in bed without bedrails: A Little Lying on back to sitting on edge of flat bed: A Little Bed to chair: A Little Standing up from chair: A Little Walk in room: A Little Climbing 3-5 stairs: A Little Mobility Inpatient Raw Score: 18 JH-HLM Goal: 6 Walked 25 feet or more (i.e. walked outside of room) Assessment Pt consent to tx today. Pt seated in recliner chair upon arrival. Pt performed and donna well hanny activities today w improvement in gait distance comparing previous session Min A RW cont VC for proper gait pattern and RW management. Pt returned to recliner chair. All needs met. RN informed. Plan Cont w POC Therapy discharge recommendations are made by determining the patient's prior level of function, assessing current function level and establishing rehab potential. The overall discharge plan may be affected by input from Physicians, Care Coordination, medical condition/status, family support and insurance benefits. SubjectiveChart reviewed. RN cleared pt for PT. Pt reported she feels better today w PT TherEx activities. Pain:Pain Assessment: Islas-Medeiros FACES Pain Rating Scale (DVPRS): Awful, hard to do anything Islas-Medeiros FACES Pain Rating: Hurts little bit Pain Location: Hip Objective Treatment:Therapeutic Exercise: Therapeutic Exercise Time Entry: 15 Therapeutic Exercise Activity 1: LAQ x10 heel slides AAROM, x10 reps AROM Position 1: Seated Therapeutic Exercise Activity 2: partial hip flex (R LE Post-hip prec at all times.) Position 2: Seated Therapeutic Exercise Acitivity 3: DF/PF (Post hip prec R LE, WBAT RLE) Position 3: Seated Therapeutic Activity:Therapeutic Activity Therapeutic Activity Time Entry: 10 Therapeutic Activity 1: STS from recliner chair w RW Therapeutic Activity 2: STS from EOB Therapeutic Activity 3: Transfer to recliner chair Stand>sit (Post hip prec R LE, WBAT RLE Min A) Therapeutic Activity 4: Transfer to chair Stand>sit Min A RW Bed Mobility:Bed Mobility: No Bed Mobility 1 Level of Assistance 1: Supervision/touching assistance Bed Mobility To/From: Supine to sit on EOB Assistive Devices And Adaptive Equipments: Bed rail Transfers:Technique 1: Via walking Level of Assistance 1: Supervision/touching assistance Trials/Comments 1: Min A Transfer To/From: Recliner, [id number]/Bgmqa-[id number] Assistive Devices And Adaptive Equipments: Walker, front-wheeled Technique 2: Via walking Level of Assistance 2: Supervision/touching assistance Transfer To/From: Bed, Recliner Gait Training:Gait Training Time Entry: 15 Gait Training Activity:Distance (enter in feet): 50 Gait Training Activity 1: Indoor surface Assistive Devices And Adaptive Equipments: Walker, front-wheeled (Post hip prec R LE, WBAT RLE) Level of Assistance 1: Supervision/touching assistance Gait Training Activity 1 Comment: Min A At end of session:RN notified, in chair, alarm intact, and call gomes in reach Patient Education:Education Documentation Precautions, taught by Molly Rendon PTA at 08/14/2024 12:30 PM. Learner: Patient Readiness: Acceptance Method: Explanation Response: Verbalizes Understanding Pain Management, taught by Molly Rendon PTA at 08/14/2024 12:30 PM. Learner: Patient Readiness: Acceptance Method: Explanation Response: Verbalizes Understanding Mobility, taught by Molly Rendon PTA at 08/14/2024 12:30 PM.Learner: Patient Readiness: Acceptance Method: Explanation Response: Verbalizes Understanding Positioning, taught by Molly Rendon PTA at 08/14/2024 12:30 PM. Learner: Patient Readiness: Acceptance Method: Explanation Response: Verbalizes Understanding Precautions, taught by Molly Rendon PTA at 08/13/2024 3:31 PM.Learner: Patient Readiness: Acceptance Method: Explanation Response: Verbalizes Understanding Pain Management, taught by Molly Rendon PTA at 08/13/2024 3:31 PM. Learner: Patient Readiness: Acceptance Method: Explanation Response: Verbalizes Understanding Mobility, taught by Molly Rendon PTA at 08/13/2024 3:31 PM.Learner: Patient Readiness: Acceptance Method: Explanation Response: Verbalizes Understanding Positioning, taught by Molly Rendon PTA at 08/13/2024 3:31 PM.Learner: Patient Readiness: Acceptance Method: Explanation Response: Verbalizes Understanding Education CommentsNo comments found. Supervising Therapist Name: sanjay cachorro Patient progress towards current goals and plan of care was discussed in person with supervising Physical Therapist. Treatment Note: If this is the last documented treatment, then it will signify discharge from acute care prior to discharge from the therapy service and will serve as the discharge summary. Molly Rendon PTA SCIENCE TECHNICIAN * Ketty Lyons MD - 08/14/2024 7:54 AM FOOD SCIENCE TECHNICIAN Images from the original note were not included. [facility] ([facility]) Integrated Hospital Medicine Program Progress Note Patient:Ewa Dotson CODE Status: No OrderBirth Date:1965 Admission Date:08/11/2024 Attending:Macarena Hammonds MD LOS: 3days Reason for visit:Hypotension Subjective Patient seen and examined at the bedside. BP is stable. No acute events overnight. She is having regular BM and pain control is improving. Physical Exam: PHYSICAL EXAMINATION: Visit VitalsBP 110/73 Pulse 97 Temp 37.6 ?C (99.6 ?F) Resp 17 Ht 1.677 m (5' 6.02") Wt 88 kg (194 lb 0.1 oz) SpO2 93% BMI 31.29 kg/m? OB Status Postmenopausal Smoking Status Never BSA 2.02 m? Physical Exam Vitals reviewed. Constitutional: General: She is not in acute distress. Appearance: She is obese. She is not ill-appearing or toxic-appearing. HENT: Head: Normocephalic and atraumatic. Cardiovascular: Rate and Rhythm: Normal rate and regular rhythm. Pulses: Normal pulses. Pulmonary: Effort: Pulmonary effort is normal. Abdominal: General: Bowel sounds are normal. There is no distension. Palpations: Abdomen is soft. Skin: Coloration: Skin is not jaundiced or pale. Neurological: General: No focal deficit present. Mental Status: She is alert and oriented to person, place, and time. Psychiatric: Mood and Affect: Mood normal. Behavior: Behavior normal. Current Medications:ceFAZolin (Ancef) 2 g in sterile water injection, 2 g, Intravenous, q8h docusate sodium, 100 mg, Oral, BID enoxaparin, 40 mg, Subcutaneous, q24h famotidine, 20 mg, Oral, Daily [Held by provider] lisinopril, 20 mg, Oral, Daily And [Held by provider] hydroCHLOROthiazide, 12.5 mg, Oral, Daily influenza vaccine, 0.5 mL, Intramuscular, During hospitalization lidocaine, 1 patch, Apply externally, Daily [Held by provider] metoprolol succinate XL, 25 mg, Oral, q AM polycarbophil, 625 mg, Oral, Daily polyethylene glycol (PEG) 3350, 17 g, Oral, Daily traZODone, 50 mg, Oral, Nightly PRN medications: acetaminophen, cyclobenzaprine, diphenhydrAMINE, enoxaparin, HYDROcodone-acetaminophen, HYDROmorphone Current Diet:Adult Diet Regular Input/Output: Intake/Output Summary (Last 24 hours) at 08/14/2024 1147Last data filed at 08/13/2024 1730 Gross per 24 hour Intake 540 ml Output -- Net 540 ml Labs & Imaging: Labs: Results from last 7 days Lab Units 08/14/24 0442 WBC 10*3/uL 6.31 HEMOGLOBIN g/dL 8.8* HEMATOCRIT % 27.3* PLATELETS 10*3/uL 220 LYMPHOCYTES % 27.1 MONOCYTES % 12.5* Results from last 7 daysLab Units 08/14/24 0442 08/11/24 0839 08/08/24 1613 SODIUM mEq/L 137 -- 136 POTASSIUM mEq/L 3.9 -- 4.3 CHLORIDE mEq/L 104 -- 102 CO2 mEq/L 29.1 -- 29.8 BUN mg/dL 10 -- 12 CREATININE mg/dL 0.60 -- 0.80 CALCIUM mg/dL 7.6* -- 9.4 PROTEIN TOTAL g/dL -- -- 7.3 BILIRUBIN TOTAL mg/dL -- -- 0.38 ALK PHOS U/L -- -- 81 ALT U/L -- -- 29 AST U/L -- -- 32 GLUCOSE mg/dL 151* -- 130* POC GLUCOSE -- < > -- < > = values in this interval not displayed. Imaging: Assessment & Plan: 59-year-old female with a medical history significant for essentialhypertension, dyslipidemia, class II obesity and LUIS who presented for an elective right hip arthroplasty. Hospitalist medicine was consulted due to postop hypotension. Assessment & Plan Adrenal insufficiency (Wharton's disease) (HCC) AM cortisol was 3.98; Cosyntropin test result 08/14/24 Precosyntropin cortisol 8.35, 30 minutes post cosyntropin : Cortisol 18 Cortisol post 60 minutes cosyntropin administration 37 Above results reveal appropriate response However given severely low initial AM cortisol, I suspect some degree of adrenal insufficiency I have discussed these results with patient and recommend outpatient endocrinology evaluation ACTH level pending Endocrinology referral at discharge Subclinical hyperthyroidism TSH low; Free T4 WNL OP Endocrinology follow up Acute blood loss anemia Hgb 8.8 from 14.1 Secondary to fracture + Ortho surgery Monitoring Transfuse for Hgb< 7 S/P total right hip arthroplastyOn 08/11/24 DVT Prophylaxis PT/OT Bowel regimen IPR following Essential hypertensionHold all BP medication I have advised patient to hold all her BP medication at discharge and monitor her BP off medications at home Follow up with PCP to discuss resuming medications DVT prophylaxis: enoxaparin - 40 mg/0.4mL, 40 mg/0.4mL Disposition Plan: IPR Ketty Lyons MDspital Medicine [facility] SCIENCE TECHNICIAN * Molly Rendon, DONATION WORKER - 08/13/2024 1:13 PM FOOD SCIENCE TECHNICIAN Physical Therapy Treatment Note Patient Name: Ewa Dotson Patient Location: 2.[facility]/2.[facility] Today's Date: 08/13/2024 Start Time: 1313 Stop Time: 1336 Preferred Language: Finnish RN cleared pt for therapy. AM-PAC Basic Mobility: Turning in bed without bedrails: A Little Lying on back to sitting on edge of flat bed: A Little Bed to chair: A Little Standing up from chair: A Little Walk in room: A Little Climbing 3-5 stairs: A Little Mobility Inpatient Raw Score: 18 -[facility] Goal: 6 Walked 10 steps or more (i.e. walked to restroom) Assessment Pt consent to tx today. Pt c/o Hip pain upon arrival but agreed on PT today. Pt donna well tx today. Pt performed Bed mob w Min A. Pt performed STS CGA>Min A cont VC. Pt performed Gait training x10 FT around the bed w RW Mod A and completed Bed>chair transfer Stand>sit recliner chair. Pt edu for hip prec. Pt maintained WBAT R LE at all times. GB on. Pt left seated in chair. All needs met. RN informed. Plan Cont w POC Therapy discharge recommendations are made by determining the patient's prior level of function, assessing current function level and establishing rehab potential. The overall discharge plan may be affected by input from Physicians, Care Coordination, medical condition/status, family support and insurance benefits. SubjectiveChart reviewed. RN cleared pt for PT. Pt consent to tx today. Pain:Pain Assessment: DVPRS Pain Rating Scale (DVPRS): Awful, hard to do anything Pain Location: Hip Objective Treatment:Therapeutic Exercise: Therapeutic Activity: Therapeutic Activity Therapeutic Activity Time Entry: 13 Therapeutic Activity 1: Bed mob supine>sit EOB Min A/Bed rail Therapeutic Activity 2: STS w RW MIn A Therapeutic Activity 3: GT w RW MOd A Therapeutic Activity 4: Transfer to chair Stand>sit Min A RW Bed Mobility:Bed Mobility: Yes Bed Mobility 1 Level of Assistance 1: Supervision/touching assistance Bed Mobility To/From: Supine to sit on EOB Assistive Devices And Adaptive Equipments: Bed rail Transfers:Technique 1: Via walking Level of Assistance 1: Supervision/touching assistance Trials/Comments 1: Min A Transfer To/From: [id number] Assistive Devices And Adaptive Equipments: Walker, front-wheeled Technique 2: Via walking Level of Assistance 2: Supervision/touching assistance Transfer To/From: Bed, Recliner Gait Training:Gait Training Time Entry: 10 Gait Training Activity:Distance (enter in feet): 10 Gait Training Activity 1: Indoor surface Assistive Devices And Adaptive Equipments: Walker, front-wheeled Level of Assistance 1: Partial/Mod assistance Modified [place] Score (mRS): At end of session: RN notified, in chair, alarm intact, and call gomes in reach Patient Education:Education Documentation Precautions, taught by Molly Rendon PTA at 08/13/2024 3:31 PM. Learner: Patient Readiness: Acceptance Method: Explanation Response: Verbalizes Understanding Pain Management, taught by Molly Rendon PTA at 08/13/2024 3:31 PM. Learner: Patient Readiness: Acceptance Method: Explanation Response: Verbalizes Understanding Mobility, taught by Molly Rendon PTA at 08/13/2024 3:31 PM.Learner: Patient Readiness: Acceptance Method: Explanation Response: Verbalizes Understanding Positioning, taught by Molly Rendon PTA at 08/13/2024 3:31 PM.Learner: Patient Readiness: Acceptance Method: Explanation Response: Verbalizes Understanding Education CommentsNo comments found. Supervising Therapist Name: grace cachorro Patient progress towards current goals and plan of care was discussed in person with supervising Physical Therapist. Treatment Note: If this is the last documented treatment, then it will signify discharge from acute care prior to discharge from the therapy service and will serve as the discharge summary. Molly Rendon PTA SCIENCE TECHNICIAN SCIENCE TECHNICIAN * Ketty Lyons MD - 08/13/2024 7:54 AM FOOD SCIENCE TECHNICIAN [facility] ([facility]) [facility] Medicine Program Progress Note Patient:Ewa J Truly CODE Status: No OrderBirth Date:1965 Admission Date:08/11/2024 Attending:Macarena Hammonds MD LOS: 2days Reason for visit:Hypotension Subjective Patient seen and examined at the bedside. No acute events overnight. BP is modest. She complains of postop pain. Physical Exam: PHYSICAL EXAMINATION: Visit VitalsBP 118/62 Pulse 107 Temp 37.1 ?C (98.7 ?F) Resp 19 Ht 1.677 m (5' 6.02") Wt 88 kg (194 lb 0.1 oz) SpO2 94% BMI 31.29 kg/m? OB Status Postmenopausal Smoking Status Never BSA 2.02 m? Physical Exam: Vitals reviewed. Constitutional: General: She is not in acute distress. Appearance: She is obese. She is not ill-appearing or toxic-appearing. HENT: Head: Normocephalic and atraumatic. Cardiovascular: Rate and Rhythm: Normal rate and regular rhythm. Pulses: Normal pulses. Pulmonary: Effort: Pulmonary effort is normal. Abdominal: General: Bowel sounds are normal. There is no distension. Palpations: Abdomen is soft. Skin: Coloration: Skin is not jaundiced or pale. Neurological: General: No focal deficit present. Mental Status: She is alert and oriented to person, place, and time. Psychiatric: Mood and Affect: Mood normal. Behavior: Behavior normal. Current Medications:ceFAZolin (Ancef) 2 g in sterile water injection, 2 g, Intravenous, q8h famotidine, 20 mg, Oral, Daily [Held by provider] lisinopril, 20 mg, Oral, Daily And [Held by provider] hydroCHLOROthiazide, 12.5 mg, Oral, Daily influenza vaccine, 0.5 mL, Intramuscular, During hospitalization lidocaine, 1 patch, Apply externally, Daily Magnesium, , Oral, Oncall [Held by provider] metoprolol succinate XL, 25 mg, Oral, q AM polycarbophil, 625 mg, Oral, Daily traZODone, 50 mg, Oral, Nightly PRN medications: acetaminophen, cyclobenzaprine, diphenhydrAMINE, enoxaparin, HYDROcodone-acetaminophen, HYDROmorphone Current Diet:Adult Diet Regular Input/Output:No intake or output data in the 24 hours ending 08/13/24 1324 Labs & Imaging:Labs: Results from last 7 days Lab Units 08/13/24 0526 WBC 10*3/uL 6.07 HEMOGLOBIN g/dL 9.0* HEMATOCRIT % 28.6* PLATELETS 10*3/uL 230 LYMPHOCYTES % 28.2 MONOCYTES % 15.8* Results from last 7 daysLab Units 08/11/24 0839 08/08/24 1613 SODIUM mEq/L -- 136 POTASSIUM mEq/L -- 4.3 CHLORIDE mEq/L -- 102 CO2 mEq/L -- 29.8 BUN mg/dL -- 12 CREATININE mg/dL -- 0.80 CALCIUM mg/dL -- 9.4 PROTEIN TOTAL g/dL -- 7.3 BILIRUBIN TOTAL mg/dL -- 0.38 ALK PHOS U/L -- 81 ALT U/L -- 29 AST U/L -- 32 GLUCOSE mg/dL -- 130* POC GLUCOSE mg/dL 122* -- Imaging: Assessment & Plan: 59-year-old female with a medical history significant for essentialhypertension, dyslipidemia, class II obesity and LUIS who presented for an elective right hip arthroplasty. Hospitalist medicine was consulted due to postop hypotension. Assessment & Plan Adrenal insufficiency (Niko's disease) (HCC) AM cortisol was 3.98; Cosyntropin test ordered If positive will start Hydrocortisone Will need Endocrinology referral at discharge Hypotension (Resolved: 08/13/2024) Resolved Subclinical hyperthyroidismTSH low; Free T4 WNL OP Endocrinology follow up Acute blood loss anemia Hgb 9.0 from 14.1 Secondary to fracture + Ortho surgery Monitoring Transfuse for Hgb< 7 S/P total right hip arthroplastyOn 08/11/24 DVT Prophylaxis PT/OT Bowel regimen IPR following DVT prophylaxis: enoxaparin - 40 mg/0.4mL Ketty Lyons MDspital Medicine [facility] SCIENCE TECHNICIAN SCIENCE TECHNICIAN * Jenise Zhang PTA - 08/12/2024 4:36 PM FOOD SCIENCE TECHNICIAN Physical Therapy Treatment Note Patient Name: Ewa Dotson Patient Location: 2.241/2.241 Today's Date: 08/12/2024 Start Time: 1503 Stop Time: 1536 Preferred Language: Finnish RN cleared pt for therapy. AM-PAC Basic Mobility: Turning in bed without bedrails: A Little Lying on back to sitting on edge of flat bed: A Little Bed to chair: A Little Standing up from chair: A Little Walk in room: A Little Climbing 3-5 stairs: A Little Mobility Inpatient Raw Score: 18 -[facility] Goal: 6 Assessment PT Assessment: increased gait distance pt was reviewed on hip precautions Evaluation/Treatment Tolerance: Patient limited by fatigue Therapy discharge recommendations are made by determining the patient's prior level of function, assessing current function level and establishing rehab potential. The overall discharge plan may be affected by input from Physicians, Care Coordination, medical condition/status, family support and insurance benefits. Pain:Pain Score: 2 (prior to PT tx) Pain Rating Scale (DVPRS): Notice pain, does not interfere with activities (post PT tx) Objective Treatment:Therapeutic Exercise: Therapeutic Exercise Time Entry: 15 Therapeutic Exercise Activity 1: pt performed bilateral le ex's x 15 reps Position 1: Supine Therapeutic Activity:Therapeutic Activity Therapeutic Activity Time Entry: 30 Therapeutic Activity 1: Supine to EOB (using bed rails, Mekhi) Therapeutic Activity 2: Static sitting balance (CGA) Therapeutic Activity 3: Sit to stand (w/RW, modA) Therapeutic Activity 4: Static standing balance (w/RW, mod A) Therapeutic Activity 5: Transfer (w/RW, modA.) Bed Mobility: Bed Mobility 1Level of Assistance 1: Supervision/touching assistance Bed Mobility Comments 1: Mekhi, assisted with lowering RLE off the bed Bed Mobility To/From: Supine to sit on EOB Assistive Devices And Adaptive Equipments: Bed rail Transfers:Level of Assistance 1: Supervision/touching assistance Transfer To/From: [id number]-[id number]-Eys Assistive Devices And Adaptive Equipments: Walker, front-wheeled Gait Training: Gait Training Time Entry: 18 Gait Training Activity:Distance (enter in feet): 50 Assistive Devices And Adaptive Equipments: Walker, front-wheeled Level of Assistance 1: Supervision/touching assistance Stair Training Activity:Stairs comment 1: pt amb up/down x 1 step with cga At end of session:RN notified, in bed, and call gomes in reach Patient Education:Education Documentation Precautions, taught by Jenise Zhang PTA at 08/12/2024 4:35 PM. Learner: Patient Readiness: Acceptance Method: Explanation, Demonstration Response: Verbalizes Understanding, Demonstrated Understanding Durable Medical Equipment, taught by Jenise Zhang PTA at 08/12/2024 4:35 PM. Learner: Patient Readiness: Acceptance Method: Explanation, Demonstration Response: Verbalizes Understanding, Demonstrated Understanding Mobility, taught by Jenise Zhang PTA at 08/12/2024 4:35 PM.Learner: Patient Readiness: Acceptance Method: Explanation, Demonstration Response: Verbalizes Understanding, Demonstrated Understanding Positioning, taught by Jenise Zhang PTA at 08/12/2024 4:35 PM.Learner: Patient Readiness: Acceptance Method: Explanation, Demonstration Response: Verbalizes Understanding, Demonstrated Understanding Physical Therapy Plan of Care, taught by Jenise Zhang PTA at 08/12/2024 4:35 PM. Learner: Patient Readiness: Acceptance Method: Explanation, Demonstration Response: Verbalizes Understanding, Demonstrated Understanding Education CommentsNo comments found. Supervising Therapist Name: Ortega Aponte PT Treatment Note: If this is the last documented treatment, then it will signify discharge from acute care prior to discharge from the therapy service and will serve as the discharge summary. Jenise Zhang PTA SCIENCE TECHNICIAN * Tatum Reyna OT - 08/12/2024 8:50 AM FOOD SCIENCE TECHNICIAN Evaluation and Treatment Patient Name: Ewa Dotson Today's Date: 08/12/2024 Room: [place] [id number] Start Time: 0850 Stop Time: 0931 Preferred Language: Finnish AM-PAC Daily Activity: Putting on and taking off regular lower body clothing: Total Bathing (including washing, rinsing, drying): A Lot Toileting, which includes using toilet, bedpan or urinal: A Lot Putting on and taking off regular upper body clothing: A Little Taking care of personal grooming such as brushing teeth: A Little Eating Meals: None AM-PAC Daily Activity Raw Score: 15 Mobility Highest Level of Mobility Performed (JH-HLM): Transferred to chair/commode Assessment & Plan Assessment: 59/F s/p Rt ENRIKE. PLOF: Independent in ADLs/IADLs, drives and works CLOF: Mod A in bed mob and step chair transfer using RW. Re-educated on hip prec, receptive. Min cues for recall. Extended time needed during transitional movements due to pain. Educated on tool kit, BSC as toilet seat riser and grab bar support, extended tub transfer bench, receptive. Recommending skilled OT while admitted and post acute care to regain PLOF. OT Assessment Results: Impaired ADL status, Impaired functional mobility Prognosis: Excellent Evaluation/Treatment Tolerance: Patient limited by pain Medical Staff Made Aware: Yes Strengths: Capable of completing ADLs semi/independent, Premorbid level of function Plan: Treatment Plan/Goals Established with Patient/Caregiver: Yes Treatment Interventions: ADL retraining, Functional transfer training, Patient/family training OT Plan: Skilled OT OT Frequency: 3 times per week until discharge OT Discharge Recommendations: Inpatient rehab facility placement Equipment Recommended: Grab bars, Commode chair- 3-N-1 (tub transfer bench) OT Planned Treatments: Activities of Daily Living, Caregiver training, Patient education, Therapeutic activities OT Duration: Discharge Therapy discharge recommendations are made by determining the patient's prior level of function, assessing current function level and establishing rehab potential. The overall discharge plan may be affected by input from Physicians, Care Coordination, medical condition/status, family support and insurance benefits. Subjective "I just use the potty earlier" Current Problem: Per EMR: Patient is a 59 y.o. female who presented to [facility] secondary to elective Rt ENRIKE. Pt now s/p ENRIKE. (08/11) Patient Active Problem List Diagnosis Asthma Gastroesophageal reflux disease Psoriasis Simple obesity Cervical stricture or stenosis Hypotension Past Medical History: Diagnosis Date Asthma GERD (gastroesophageal reflux disease) Hypertension Numbness of toes Right foot Prediabetes Sleep apnea treated with continuous positive airway pressure (CPAP) Pain: 8/10 post session Pain meds given by RN prior Objective Vital Signs:VS pre: 94.58 BP, MAP 70, 104 HR VS post: 87/52 BP, MAP 64, 106 HR General Visit Information:Family/Caregiver Present: No RN Pamella cleared pt for session. Pt. agreeable Precautions:LE Weight Bearing Status: WBAT RLE Post-Surgical Precautions: Hip Braces Applied: abduction pillow Cognition:Overall Cognitive Status: Within Functional Limits Behavior/Cognition: Alert, Cooperative Orientation Level: Oriented X4 Home Living:Type of Home: House Lives With: Spouse, Other (Comment) (2 adult children) Home Adaptive Equipment: Walker rolling or standard, Electric Screw Driver Operator Home Layout: One level Home Access: Other (Comment) (1 step to enter thru front door) Bathroom Shower/Tub: Tub/shower unit Bathroom Toilet: Handicapped height (has elevated toilet seat) Bathroom Equipment: Shower chair with back, Raised toilet seat without rails Prior Function:Level of [place]: Household ambulation, Other (Comment) (community ambulation without device, drives) ADL Assistance: Independent Homemaking Assistance: Independent 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, 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) Social History:Social History Source: Patient, Medical record OT General Assessments:ADL Eating Assistance: Independent LE Dressing Assistance: Dependent Activity ToleranceEndurance: Endurance does not limit participation in activity Sitting Balance: Supports self independently with both upper extremities Activity Tolerance Comments: hypotensive but asymptomatic Hand FunctionGross Grasp: Functional Coordination: Functional Mobility/Transfers:Bed Mobility Bed Mobility Bed Mobility: Yes Bed Mobility 1 Level of Assistance 1: Partial/Mod assistance Bed Mobility To/From: Supine to sit on EOB Assistive Devices And Adaptive Equipments: Bed rail TransferTransfers Transfer: Yes Transfer 1 Level of Assistance 1: Partial/Mod assistance Transfer To/From: [id number] Assistive Devices And Adaptive Equipments: Walker, front-wheeled Transfers 2 Technique 2: Stand step Level of Assistance 2: Partial/Mod assistance Trials/Comments 2: (slow unsteady steps, guarded WB on 2/2 pain) Transfer To/From: Bed, Recliner Assistive Devices And Adaptive Equipments: Walker, front-wheeled Toilet TransfersToilet Transfers Toilet Transfers Comments: reports using the BSC with A from nursing prior to eval Extremity Assessments:Right Upper Extremity RUE Assessment RUE Assessment: Within Functional Limits Left Upper Extremity LUE AssessmentLUE Assessment: Within Functional Limits Upper Extremity ToneUpper Extremity Tone Left Upper Extremity: Normal Right Upper Extremity: Normal Treatment:Therapeutic Activity Therapeutic Activity Time Entry: 26 Pt. highfowler's in bed when OT arrived. Extended time needed for chair androom management prior to EOB task. Semifowler's -> EOB: Mod A. No orthostatic symptoms. VS WFL. Assumed standing to step transfer to chair with Mod A with RW. Slow steady steps. Transitional movements limited by pain. Pt able to follow hip prec with min cues. At EOS, pt sitting on recliner chair, BLE elevated. Needs in reach. Refused for abduction pillow to be placed back, RN aware. Pt agreed for a pillow to be placed in between legs instead, RN aware. Post Therapy Safety Checklist:Call light in reach, Nurse informed, Bed/Chair alarm on , HOB raised and above 30?, All lines/leads intact, and Vitals signs stable Patient Education:Education Documentation Precautions, taught by Tatum Reyna OT at 08/12/2024 10:43 AM. Learner: Patient Readiness: Acceptance Method: Explanation, Demonstration Response: Verbalizes Understanding, Needs Reinforcement Positioning, taught by Tatum Reyna OT at 08/12/2024 10:43 AM.Learner: Patient Readiness: Acceptance Method: Explanation, Demonstration Response: Verbalizes Understanding, Needs Reinforcement Fall Prevention, taught by Tatum Reyna OT at 08/12/2024 10:43 AM.Learner: Patient Readiness: Acceptance Method: Explanation, Demonstration Response: Verbalizes Understanding, Needs Reinforcement Adaptive Equipment, taught by Tatum Reyna OT at 08/12/2024 10:43 AM. Learner: Patient Readiness: Acceptance Method: Explanation, Demonstration Response: Verbalizes Understanding, Needs Reinforcement Mobility Training, taught by Tatum Reyna OT at 08/12/2024 10:43 AM. Learner: Patient Readiness: Acceptance Method: Explanation, Demonstration Response: Verbalizes Understanding, Needs Reinforcement ADL Training, taught by Tatum Reyna OT at 08/12/2024 10:43 AM.Learner: Patient Readiness: Acceptance Method: Explanation, Demonstration Response: Verbalizes Understanding, Needs Reinforcement Occupational Therapy Plan of Care, taught by Tatum Reyna OT at110/13/2023 10:43 AM. Learner: Patient Readiness: Acceptance Method: Explanation, Demonstration Response: Verbalizes Understanding, Needs Reinforcement Education CommentsNo comments found. Goals:Encounter Goals Encounter Goals (Active) LTG - Patient will utilize adaptive techniques/equipment to dress lower bodywith Mod [place] Start: 08/12/24 Expected End: 08/26/24 LTG - Patient will demonstrate use of appropriate intervention for safe toileting with Mod [place] Start: 08/12/24 Expected End: 08/26/24 STG - Patient will perform bed with Mod [place] Start: 08/12/24 Expected End: 08/26/24 STG - Patient will perform toilet transfer with Mod [place] Start: 08/12/24 Expected End: 08/26/24 Treatment Note: If this is the last documented treatment, then it will signify discharge from acute care prior to discharge from the therapy service and will serve as the discharge summary. Tatum Reyna OT SCIENCE TECHNICIAN SCIENCE TECHNICIAN SCIENCE TECHNICIAN * Ketty Lyons MD - 08/12/2024 8:19 AM FOOD SCIENCE TECHNICIAN Images from the original note were not included. [facility] ([facility]) Integrated [facility] Medicine Program Progress Note Patient:Ewa Dotson CODE Status: No OrderBirth Date:1965 Admission Date:08/11/2024 Attending:Macarena Hammonds MD LOS: 1days Reason for visit:Hypotension Subjective Patient seen and examined at the bedside. She has no complaints aside frompostop pain. Borderline blood pressures however she denies chest pain shortness of breath or dizziness. Physical Exam: PHYSICAL EXAMINATION: Visit VitalsBP 102/59 Pulse 95 Temp 37 ?C (98.6 ?F) Resp 17 Ht 1.677 m (5' 6.02") Wt 88 kg (194 lb 0.1 oz) SpO2 95% BMI 31.29 kg/m? OB Status Postmenopausal Smoking Status Never BSA 2.02 m? Physical Exam: Vitals reviewed. Constitutional: General: She is not in acute distress. Appearance: She is obese. She is not ill-appearing or toxic-appearing. HENT: Head: Normocephalic and atraumatic. Mouth/Throat: Mouth: Mucous membranes are moist. Eyes: Pupils: Pupils are equal, round, and reactive to light. Cardiovascular: Rate and Rhythm: Normal rate. Pulses: Normal pulses. Pulmonary: Effort: Pulmonary effort is normal. Abdominal: General: Bowel sounds are normal. There is no distension. Palpations: Abdomen is soft. Musculoskeletal: General: Normal range of motion. Legs: Comments: Dressing is CDI Skin:General: Skin is warm and dry. Neurological: General: No focal deficit present. Mental Status: She is alert and oriented to person, place, and time. Psychiatric: Mood and Affect: Mood normal. Current Medications:ceFAZolin (Ancef) 2 g in sterile water injection, 2 g, Intravenous, q8h famotidine, 20 mg, Oral, Daily [Held by provider] lisinopril, 20 mg, Oral, Daily And [Held by provider] hydroCHLOROthiazide, 12.5 mg, Oral, Daily influenza vaccine, 0.5 mL, Intramuscular, During hospitalization Magnesium, , Oral, Oncall [Held by provider] metoprolol succinate XL, 25 mg, Oral, q AM polycarbophil, 625 mg, Oral, Daily traZODone, 50 mg, Oral, Nightly PRN medications: acetaminophen, cyclobenzaprine, diphenhydrAMINE, enoxaparin, HYDROcodone-acetaminophen, HYDROmorphone Current Diet:Adult Diet Regular Input/Output:No intake or output data in the 24 hours ending 08/12/24 1404 Labs & Imaging: Labs: Results from last 7 days Lab Units 08/12/24 0614 WBC 10*3/uL 10.29 HEMOGLOBIN g/dL 10.4* HEMATOCRIT % 32.5* PLATELETS 10*3/uL 284 LYMPHOCYTES % 9.0* MONOCYTES % 12.8* Results from last 7 daysLab Units 08/11/24 0839 08/08/24 1613 SODIUM mEq/L -- 136 POTASSIUM mEq/L -- 4.3 CHLORIDE mEq/L -- 102 CO2 mEq/L -- 29.8 BUN mg/dL -- 12 CREATININE mg/dL -- 0.80 CALCIUM mg/dL -- 9.4 PROTEIN TOTAL g/dL -- 7.3 BILIRUBIN TOTAL mg/dL -- 0.38 ALK PHOS U/L -- 81 ALT U/L -- 29 AST U/L -- 32 GLUCOSE mg/dL -- 130* POC GLUCOSE mg/dL 122* -- Imaging: Assessment & Plan: 59-year-old female with a medical history significant for essential hypertension, dyslipidemia, class II obesity and LUIS who presented for an elective right hip arthroplasty. Hospitalist medicine was consulted due to postop hypotension. Assessment & Plan Hypotension BP is improving after IV fluid Check Cortisol, TSH Patient takes lisinopril-HCTZ and metoprolol Hold blood pressure medication Keep MAP above 65 mmHg She is asymptomatic DVT prophylaxis: enoxaparin - 40 mg/0.4mL Disposition Plan: IPR per primary Ketty Lyons MDspital Medicine [facility] SCIENCE TECHNICIAN SCIENCE TECHNICIAN * Macarena Hammonds MD - 08/12/2024 8:01 AM FOOD SCIENCE TECHNICIAN Subjective moderate pain post op Objective Last Recorded Vitals Blood pressure 96/63, pulse 96, temperature 37 ?C (98.6 ?F), resp. rate 17, height 1.677 m (5' 6.02"), weight 88 kg (194 lb 0.1 oz), SpO2 94%. Physical Exam: leg lengths same, ant tib fires Assessment & Plan Hypotension Observation , fluids , rehab Current Diet: Adult Diet Regular SCIENCE TECHNICIAN * Hector Rodríguez, PT - 08/11/2024 4:43 PM FOOD SCIENCE TECHNICIAN Physical Therapy Evaluation and Treatment Patient Name: Ewa Dotson Patient Location: 2.[facility] Today's Date: 08/11/2024 Time Calculation Start Time: 1642 Stop Time: 1737 Time Calculation (min): 55 min Preferred Language: Finnish AM-PAC Basic Mobility: Turning in bed without bedrails: A Little Lying on back to sitting on edge of flat bed: A Little Bed to chair: A Lot Standing up from chair: A Lot Walk in room: A Lot Climbing 3-5 stairs: A Lot Mobility Inpatient Raw Score: 14 -HLM Goal: 4 Walked 10 steps or more (i.e. walked to restroom) PT Assessment: PT Assessment: Pt is a 59 y/o female s/p R THR, posterior approach. Upon arrival, pt denies dizziness, lightheadedness, nausea. Pt reports she doesn't feel confident, 2nd to nerve block effect. and 2/10 pain at surgery site Pt. performed THR protocol ex's (AP's, quad sets, glut sets) x 10 reps ea in bed. Pt. scooted to edge of bed with Mekhi. Pt. sat edge of bed x 5 minutes working on static sitting balance and preparing for ambulation. Sit to stand from bed to RW with modA. Pt. ambulated x 5 ft using RW with modA. PT assisted pt transferring to chair so she can eat her dinner. PT administered chair alarm and notified nurse. PT provided education and pt verbalizes understanding of hip precautions and WB precautions. Call gomes was placed close in reach for pt. Pt will benefit from skilled PT services to improve strength and functional independence, recommending HHPT vs OPPT to continuing with rehab to return to [facility]. Prognosis: Good Barriers to Discharge: Time since onset Evaluation/Treatment Tolerance: Patient tolerated treatment well Medical Staff Made Aware: Yes Strengths: Physical health, Support of extended family/friends Plan: Treatment Plan/Goals Established with Patient/Caregiver: Yes Treatment/Interventions: Balance training, Bed mobility training, Caregiver training, Equipment training, Functional activities, Group therapy, Gait training, Manual therapy, Neuromuscular re-education, Pain management, Patient education, Positioning, Posture/Body mechanics baring, Stair training, Therapeutic exercises, Transfer training PT Plan: Skilled PT PT Frequency: 5-7 times per week until discharge PT Discharge Recommendations: Home health PT, Outpatient PT Equipment Recommended: (None) PT Recommended Transfer Status: Assistive equipment (Comment) (modA with RW) Therapy discharge recommendations are made by determining the patient's prior level of function, assessing current function level and establishing rehab potential. The overall discharge plan may be affected by input from Physicians, Care Coordination, medical condition/status, family support and insurance benefits. Subjective: Pt agrees to participate in PT eval. Pain: Pain Assessment: DVPRS Pain Score: 2 Pain Rating Scale (DVPRS): Notice pain, does not interfere with activities Pain Type: Surgical pain Pain Location: Hip Pain Orientation: Right Pain Interventions: Cold pack Health Conditions: Pain Interference with Therapy Activities: Rarely or not at all Vital Signs:BP: 116/67, HR: 78, O2: 95% Current PT Diagnosis:Ambulation deficits, Balance deficits, Bed mobility deficits, Decreased activity tolerance, Decreased functional mobility, ROM deficits, Safety/Judgement deficits, Strength deficits, and Transfer deficits Home Living: Type of Home: House Lives With: Family (Spouse and 2 adult children) Home Adaptive Equipment: Walker rolling or standard, Other (Comment) (Shower chair) Home Layout: One level Home Access: Other (Comment) (one 6 inch step at entrance) Prior Level of Function:Level of [place]: Household ambulation Objective:Precautions: LE Weight Bearing Status: WBAT RLE FWB LLE Post-Surgical Precautions: Hip Cognition:Overall Cognitive Status: Within Functional Limits Behavior/Cognition: Alert, Cooperative General Assessments:Activity Tolerance Endurance: Tolerates 30 min exercise with multiple rests Sitting Balance: Supports self independently with both upper extremities Static Standing Balance Static Standing-Balance Support: Right upper extremity supported, Left upper extremity supported (on RW) Static Standing-Level of Assistance: Supervision/touching assistance Functional Assessments:Bed Mobility Bed Mobility: Yes Bed Mobility 1 Level of Assistance 1: Partial/Mod assistance Bed Mobility Comments 1: Mekhi, assisted with lowering RLE off the bed Bed Mobility To/From: Supine to sit on EOB Assistive Devices And Adaptive Equipments: Bed rail TransfersTransfer: Yes Transfer 1 Technique 1: Stand step Level of Assistance 1: Partial/Mod assistance (modA) Transfer To/From: Bed, Chair Assistive Devices And Adaptive Equipments: Walker, front-wheeled Gait TrainingGait Training Time Entry: 10 Gait Training Activity: Yes Gait Training Activity 1 Distance (enter in feet): 5 Gait Training Activity 1: Indoor surface Assistive Devices And Adaptive Equipments: Walker, front-wheeled Level of Assistance 1: Partial/Mod assistance (modA) Gait Training Activity 1 Comment: Demos decreased step length, requires tactile cues maintain balance when standing using RW. Extremity Assessments:RLE Assessment RLE Assessment: Within Functional Limits LLE Assessment LLE Assessment: Within Functional Limits Treatment:Therapeutic exercise: Therapeutic Exercise Activity 1: Ankle pumps (BLE 10ea) Position 1: Supine Therapeutic Exercise Activity 2: Glute sets (10ea) Position 2: Supine Therapeutic Exercise Acitivity 3: Quad sets (10 ea) Position 3: Supine Therapeutic activity:Therapeutic Activity Therapeutic Activity Time Entry: 30 Therapeutic Activity 1: Supine to EOB (using bed rails, Mekhi) Therapeutic Activity 2: Static sitting balance (CGA) Therapeutic Activity 3: Sit to stand (w/RW, modA) Therapeutic Activity 4: Static standing balance (w/RW, mod A) Therapeutic Activity 5: Transfer (w/RW, modA.) Gait training:Gait Training Time Entry: 10 Gait Training Activity 1:Distance (enter in feet): 5 Gait Training Activity 1: Indoor surface Assistive Devices And Adaptive Equipments: Walker, front-wheeled Level of Assistance 1: Partial/Mod assistance (modA) Gait Training Activity 1 Comment: Demos decreased step length, requires tactile cues maintain balance when standing using RW. At end of session:RN notified, in chair, alarm intact, and call gomes in reach Goal:Encounter Goals Encounter Goals (Active) Patient will progress supine<>sit at modified independence. Start: 08/11/24 Expected End: 09/01/24 Patient will progress to ambulate on even surface using RW for 150 ft at spv. Start: 08/11/24 Expected End: 09/01/24 Patient will ascend and descend a standard curb assist with RW in order to improve safety and efficiency with community mobility and doctor's visits. Start: 08/11/24 Expected End: 09/01/24 Patient will progress level surface transfers using stand step with RW at spv. Start: 08/11/24 Expected End: 09/01/24 Patient Education:Education Documentation Home Exercise Program, taught by Hector Rodríguez PT at 08/11/2024 6:30 PM. Learner: Patient Readiness: Acceptance Method: Explanation Response: Verbalizes Understanding, Needs Reinforcement Precautions, taught by Hector Rodríguez PT at 08/11/2024 6:30 PM.Learner: Patient Readiness: Acceptance Method: Explanation Response: Verbalizes Understanding, Needs Reinforcement Durable Medical Equipment, taught by Hector Rodríguez PT at 08/11/2024 6:30 PM. Learner: Patient Readiness: Acceptance Method: Explanation Response: Verbalizes Understanding, Needs Reinforcement Pain Management, taught by Hector Rodríguez PT at 08/11/2024 6:30 PM.Learner: Patient Readiness: Acceptance Method: Explanation Response: Verbalizes Understanding, Needs Reinforcement Mobility, taught by Hector Rodríguez PT at 08/11/2024 6:30 PM.Learner: Patient Readiness: Acceptance Method: Explanation Response: Verbalizes Understanding, Needs Reinforcement Positioning, taught by Hector Rodríguez PT at 08/11/2024 6:30 PM.Learner: Patient Readiness: Acceptance Method: Explanation Response: Verbalizes Understanding, Needs Reinforcement Physical Therapy Plan of Care, taught by Hector Rodríguez PT at 08/11/2024 6:30 PM. Learner: Patient Readiness: Acceptance Method: Explanation Response: Verbalizes Understanding, Needs Reinforcement Education CommentsNo comments found. Treatment Note: If this is the last documented treatment, then it will signify discharge from acute care prior to discharge from the therapy service and will serve as the discharge summary. Hector Rod[facility]guez PT [facility] 18:36:39Pending Results Scheduled Orders Name Type Priority Associated Diagnoses Orde r Schedule ACTH Level Lab Routine Once (Lab) for 1 Occurrences starting 08/14/2024 until 08/14/2024 Scheduled Referrals Name Type Priority Associated Diagnoses Order Schedule Ambulatory referral to Endocrinology Outpatient Referral Routine Hypotension, unspecified hypotension type Expected: 08/15/2024 (Approximate), Expires: 02/13/2025 Health Maintenance Due Date Last Done Comments CT Colonography 1965 Colonoscopy 1965 Colorectal Cancer Screening 1965 FIT-DNA 1965 FIT 1965 FOBT 1965 Lipid Panel 1965 Sigmoidoscopy 1965 Annual Physical 02/27/1967 DTaP/Tdap/Td Vaccines (1 - Tdap) 02/27/1983 Pap Smear 02/27/1985 Cervical Cancer Screening 02/27/1994 HPV/Cotest 02/27/1994 Mammogram 2004 Pneumococcal Vaccine: Pediat rics (0 to 5 Years) and At-Risk Patients (6 to 64 Years) (2 of 2 - PCV) 07/03/2018 07/03/2017 Zoster Vaccines (2 of 2) 09/02/2021 07/08/2021 Respiratory Syncytial Virus (RSV) or >=60 (1 - Risk 60-74 years 1-dose series) 2024 Influenza Vaccine (#1) 2024 07/03/2023 HIB Vaccines Aged Out No longer eligi ble based on patient's age to complete this topic HPV Vaccines Aged Out No longer eligi ble based on patient's age to complete this topic Hepatitis A Vaccines Aged Out No long er eligible based on patient's age to complete this topic Hepatitis B Vaccines Aged Out No long er eligible based on patient's age to complete this topic IPV Vaccines Aged Out No longer eligi ble based on patient's age to complete this topic Meningococcal Vaccine Aged Out No [place] lour[place] eligible based on patient's age to complete this topic Rotavirus Vaccines Aged Out No longer eligible based on patient's age to complete this topic [id number] 18:36:39 [id number] 18:36:39 Diagnosis Unilateral primary osteoarth ritis, right hip - Primary Hypotension, unspecified hyp otension type Essential hypertension Unspecified essential hypertension S/P total right hip arthropl asty Acute blood loss anemia Acute posthemorrhagic anemia Subclinical hyperthyroidism Thyrotoxicosis without mention of goiter or other cause, without mention of thyrotoxic crisis or storm Adrenal insufficiency (Wharton's disease) (HCC) Glucocorticoid deficiency Cervical stricture or stenos is Simple obesity Obesity, unspecified Psoriasis Other psoriasis Gastroesophageal reflux dise ase with esophagitis without hemorrhage Mild intermittent asthma wit hout complication Hypotension Unspecified hypotension Adrenal insufficiency (Wharton's disease) (HCC) Glucocorticoid deficiency Subclinical hyperthyroidism Thyrotoxicosis without mention of goiter or other cause, without mention of thyrotoxic crisis or storm Acute blood loss anemia Acute posthemorrhagic anemia S/P total right hip arthropl asty Essential hypertension Unspecified essential hypertension Status post surgery [id number] 18:36:39 [facility] [id number] 16:30:21 Images from the original note were not included. [id number] Discharge Instructions for Total Knee Replacement You have had knee replacement surgery. The knee joint forms where the thighbone, shinbone, and kneecap meet. The knee joint is supported by muscles and ligaments It's lined with a cushioning called cartilage. Over time, cartilage wears away. This can make the knee feel stiff and painful. Your surgeon replaced your painful joint with an artificial joint to relieve pain and restore movement. Here are some directions to follow once at home. Home care ? Follow your surgeon's directions on when it's OK to shower. Carefully wash your incision as directed. Rinse the incision (cut) well. Then gently pat it dry. Don?t rub the incision, or apply creams or lotions. Sit on a shower stool or chair when you shower to keep from falling. ? Take all medicine as directed by your surgeon. Sitting and sleeping ? Sit in chairs with arms. The arms make it easier for you to stand up or sit down. ? Don?t sit for more than 30 to 45 minutes at a time. ? Nap if you are tired, but don?t stay in bed all day. ? Sleep with a pillow under your ankle, not your knee. Be sure to change the position of your leg during the night. Moving safely ? The lang to successful recovery is movement with walking and exercising your knee as directed by your healthcare provider. You should be able to start moving your leg shortly after surgery as directed by your surgeon. ? Walk up and down stairs with support. Try 1 step at a time. Use the railing if possible. ? Don?t drive until your healthcare provider says it?s OK. Most people can start driving about 6 weeks after surgery. Don?t drive while you are taking opioid pain medicine. Other precautions ? Don't soak your knee in water until your surgeon says it?s OK. This means no hot tubs, bathtubs, or swimming pools. ? You may be given support stockings. If so, wear them as directed by your surgeon. These may be needed for 4 to 6 weeks after surgery. If needed, you can place a bandage over the incision to prevent irritation from clothing or support stockings. ? Arrange your household to keep the items you need handy. Keep everything else out of the way. Remove items that may cause you to fall, such as throw rugs and electrical cords. ? Use nonslip bathmats, grab bars, an elevated toilet seat, and a shower chair in your bathroom. ? Until your balance, flexibility, and strength improve, use a cane, crutches, a walker, handrails, or someone to help you. ? Keep your hands free by using a backpack, carola pack, apron, or pockets to carry things. ? Prevent infection. Ask your healthcare provider for instructions if you haven?t already received them. Any infection will need to be treated right away. Call your healthcare provider right away if you think you might have an infection. ? Tell your dentist that you have an artificial joint. You may be directed to take antibiotics as prescribed before any dental work. ? Tell all your healthcare providers about your artificial joint before any medical procedure. ? Stay at a healthy weight. Get help to lose any extra pounds. Added body weight puts stress on the knee. ? Take any medicine you may have been given after surgery as prescribed. This may include blood-thinning medicine to prevent blood clots or antibiotics to prevent infection. Follow-up care Follow up with your healthcare provider as advised. If you have thom or stitches to close your incision, follow your surgeon's instructions on when to return to have them removed, usually about 2 to 3 weeks after surgery. Call 911 Call 911 right away if either of the following occur: ? Chest pain ? Shortness of breath When to call your healthcare provider Call your healthcare provider right away if any of the following occur: ? Fever of 100.4?F (38?C) or higher, or as directed by your healthcare provider ? Pain or swelling in your calf ? Shaking chills ? Stiffness or inability to move the knee ? Increased swelling in your leg ? Increased redness, tenderness, or swelling in or around the knee incision ? Drainage from the knee incision ? Increased knee pain Last Reviewed Date: 2021 00:00:00 ? [id number] [employer]. All rights reserved. This information is not intended as a substitute for professional medical care. Always follow your healthcare professional's instructions. [facility] 16:30:07 Images from the original note were not included. [id number] Low Blood Pressure, All Causes A blood pressure reading is made up of 2 numbers There is a top number over a bottom number. The top number is the systolic pressure. It measures your pressure as your heart is leonardo (squeezing) to pump blood. The bottom number is the diastolic pressure. It measures your pressure when the heart is relaxing and refilling with blood. A normal blood pressure is a systolic pressure less than 120 and a diastolic pressure less than 80. Low blood pressure (hypotension) is a blood pressure that is less than what is normal for you. Low blood pressure can cause dizziness, lightheadedness, or fainting. Some medicines can cause low blood pressure. They include: ? High blood pressure pills ? Water pills (diuretics) ? Some heart medicines ? Some antidepressants ? Pain, anxiety, sedative, and sleeping medicines Other causes include: ? Dehydration, severe infection, or fever ? Blood loss, such as bleeding from the stomach or intestines. ? Heart failure ? Change in heart rate or rhythm (arrhythmia) ? A drop in blood pressure from a sudden change in body position, from lying down to standing (orthostatic hypotension) ? Alcohol or drug intoxication ? Neurological diseases that impair the autonomic nervous system (the portion of the nervous system that regulates such things as internal organs and blood vessels) Treatment will depend on what is causing your low blood pressure. Home care Follow these guidelines when caring for yourself at home: ? Rest until your symptoms get better. ? Keep a record of your symptoms and what you were doing when they occurred. Bring the record with you to your next appointment. ? Be aware of how quickly your blood pressure drops when you become dehydrated, spend a lot of time in the sun, or have low blood sugar. Take measures to prevent blood pressure drops at these times. ? Follow the treatment plan described by your healthcare provider. Follow-up care Follow up with your healthcare provider, or as advised. When to get medical advice Call your healthcare provider right away if any of these occur: ? Mild dizziness or lightheadedness ? Small amount of black or red color, or blood, in your stools or vomit ? Mild abdominal pain ? Diarrhea or vomiting that doesn?t go away ? You aren?t able to eat or drink ? Fever of 100.4?F (38?C) or higher, or as advised by your provider ? Burning feeling when you pee ? Bad-smelling urine Call 911 Call 911, or get immediate medical care at the nearest emergency department if any of the following occur: ? Fainting or severe dizziness or lightheadedness ? Large amount of black or red color, or blood, in your stools or vomit ? Abnormal pain in chest, shoulder, arm, neck, or upper back ? Abnormal shortness of breath or trouble breathing ? Severe abdominal pain Last Reviewed Date: 2021 00:00:00 ? [id number] [employer]. All rights reserved. This information is not intended as a substitute for professional medical care. Always follow your healthcare professional's instructions. [facility] [id number] 16:29:41 Images from the original note were not included. Hydrocodone and Acetaminophen - Video Understand how Hydrocodone and Acetaminophen work to help you manage pain. Also, understand the possible side effects to be aware of and how to properly use and store these medications. To view the video go to this web address: [email or web address] Or, scan this QR code with your smart phone ? [facility] [facility] [id number] 14:35:17 Images from the original note were not included. [id number] Understanding Osteoarthritis of the Hip A joint is a place where 2 or more bones meet. The hip is a cswc-ady-kvaags joint. It's formed where the ball at the top of the thighbone (femur) rests in the socket in the pelvic bone. The hip joint allows the leg to move freely in many directions. Hip osteoarthritis is a condition where parts of the hip joint wear out. It can lead to pain, stiffness, and limited movement. What is osteoarthritis? All joints contain a smooth tissue called cartilage. Cartilage cushions the ends of bones, helping them glide against each other. Hip osteoarthritis occurs when cartilage in the hip joint starts to break down and wear away. The ball and socket bones may then become exposed and rub together. The cartilage may become rough and pitted. It may start to wear away. This prevents smooth movement of the joint and can lead to pain. Causes of osteoarthritis of the hip Causes can include: ? Wear and tear from normal use of the hip over time ? Overuse of the hip during sports or work activities ? Being overweight. This increases stress on the hip joint. ? Hip injury ? Hip joint infection Symptoms of osteoarthritis of the hip The main symptom of hip osteoarthritis is pain. The pain is most often felt in the groin area. It may also travel down the leg to the knee or to the back of the hip. The pain usually gets worse with activity, such as walking or climbing stairs. The pain may get better with rest. The joint may also be stiff first thing in the morning or after sitting or lying down. Stiffness usually gets better with movement. Treating osteoarthritis of the hip Osteoarthritis is a long-term (chronic) condition. Treatment usually focuses on managing symptoms. Treatment may include: ? Pcfp-qxp-uhzrqrv or prescription medicines taken by mouth to help ease pain and swelling ? Shots of medicine into the joint to help ease symptoms for a time ? A weight-loss plan if you're overweight ? A plan of physical therapy and exercises to improve strength and flexibility around the joint ? Cold or heat packs to help ease pain and stiffness ? Assistive devices that help with movement, such as a cane or a walker ? Assistive devices that make activities of daily life easier, such as raised toilet seats or shower bars If other treatments don?t do enough to ease severe symptoms, you may need surgery to replace the joint. This surgery replaces the hip joint with an artificial joint. It can help ease pain and stiffness and improve hip function. When to call your healthcare provider Call your provider right away if you have any of these: ? Fever of 100.4?F (38?C) or higher, or as advised by your provider ? Symptoms that don?t get better with prescribed medicines, or that get worse ? New symptoms Last Reviewed Date: 2023 00:00:00 ? [id number] [employer]. All rights reserved. This information is not intended as a substitute for professional medical care. Always follow your healthcare professional's instructions. [facility]2024-12-09 11:55:00 Patient sitting up in chair. Awake, alert. Family at bedside. Patient stated that she has a walker at home. IS provided and instructed to take home and continue to use at home. Patient stated that she lives in [place]. She stated that there are 3 OP PT places that she have to choose to go. Instructed patient to call Dr. Amezcua's office to let them know where she wants to do her OP PT, so orders can be sent there. Patient stated that she will call office today. Primary nurse and CN notified. [facility]2024-12-08 03:15:00 The patient is Moderately Stable - Low risk of patient condition declining or worsening The patient's goals for the shift include pain management The clinical goals for the shift include fall prevention [facility]2024-12-07 17:20:15 Problem: Pain - Adult Goal: Verbalizes/displays adequate comfort level or baseline comfort level Outcome: Progressing Problem: Safety - Adult Goal: Free from fall injury Outcome: Progressing Problem: Discharge Planning Goal: Discharge to home or other facility with appropriate resources Outcome: Progressing Problem: Chronic Conditions and Co-morbidities Goal: Patient's chronic conditions and co-morbidity symptoms are monitored and maintained or improved Outcome: Progressing Problem: Knowledge Deficit Goal: Patient/family/caregiver demonstrates understanding of disease process, treatment plan, medications, and discharge instructions Outcome: Progressing Problem: Potential for Falls Goal: I will remain free of falls Outcome: Progressing The patient is Moderately Stable - Low risk of patient condition declining or worsening The patient's goals for the shift include pain management The clinical goals for the shift include pain management [facility]2024-12-07 02:42:22 The patient is Moderately Stable - Low risk of patient condition declining or worsening The patient's goals for the shift include Pain management The clinical goals for the shift include Pain management [facility]2024-12-06 11:59:46 The patient is Moderately Stable - Low risk of patient condition declining or worsening The patient's goals for the shift include Pain management and fall prevention The clinical goals for the shift include manage pain and manage BP [facility]CHNICIAN [facility] 18:30:00 The patient is Moderately Stable - Low risk of patient condition declining or worsening The patient's goals for the shift include Pain management and fall prevention The clinical goals for the shift include Post Op care SCIENCE TECHNICIAN [id number] 16:47:59Upcoming Encounters Scheduled Procedures Name Priority Associated Diagnoses Date/Ti me ARTHROPLASTY, HIP, TOTAL Unilate ral primary osteoarthritis, right hip 08/11/2024 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 Health Maintenance Due Date Last Done Comments CT Colonography 1964 Colonoscopy 1964 Colorectal Cancer Screening 1964 FIT-DNA 1964 FIT 1964 FOBT 1964 Lipid Panel 1964 Sigmoidoscopy 1964 Annual Physical 02/27/1967 DTaP/Tdap/Td Vaccines (1 - Tdap) 02/27/1983 Pap Smear 02/27/1985 Cervical Cancer Screening 02/27/1994 HPV/Cotest 02/27/1994 Mammogram 2004 Pneumococcal Vaccine: Pediat rics (0 to 5 Years) and At-Risk Patients (6 to 64 Years) (2 of 2 - PCV) 07/03/2018 07/03/2017 Zoster Vaccines (2 of 2) 09/02/2021 07/08/2021 Respiratory Syncytial Virus (RSV) or >=60 (1 - Risk 60-74 years 1-dose series) 2024 Influenza Vaccine (#1) 2024 07/03/2023 HIB Vaccines Aged Out No longer eligi ble based on patient's age to complete this topic HPV Vaccines Aged Out No longer eligi ble based on patient's age to complete this topic Hepatitis A Vaccines Aged Out No long er eligible based on patient's age to complete this topic Hepatitis B Vaccines Aged Out No long er eligible based on patient's age to complete this topic IPV Vaccines Aged Out No longer eligi ble based on patient's age to complete this topic Meningococcal Vaccine Aged Out No [place] lourdes eligible based on patient's age to complete this topic Rotavirus Vaccines Aged Out No longer eligible based on patient's age to complete this topic [id number] 16:47:59 [id number] 09:00:00 [employer] 30-day event monitor applied to patient. Wear and care explained. Patient verbalized understanding. Patient given instruction on how to return monitor on 05/25/23 to Kaitlynn. Joanna Camargo [id number] 13:46:00EXAM: XR CERVICAL SPINE 4 VIEWS DATE: 02/24/2019 13:46 CDT INDICATION: - Z98.1 Arthrodesis status / Standing AP/Lateral and Flex/Ext COMPARISON: 12/30/2017 TECHNIQUE: 4 views of the cervical spine FINDINGS: There is loss of cervical lordosis with mild reversal of curvature. Anterior cervical discectomy and fusion is seen at C4-C5 in unchanged alignment. Hardware is intactwithout evidence of loosening. Moderate disc height loss is seen at C5-C6 and moderate disc height loss at C6- C7 with endplate sclerosis and osteophyte formation. Moderate bilateral facet arthrosis at multiple levels, worse at C5-C6 and C6-C7. Vertebral body heights are overall preserved. No abnormal motion seen on flexion-extension. No prevertebral or paraspinous soft tissue abnormality is identified. IMPRESSION: 1. Anterior cervical discectomy and fusion at C4-C5 and alignment without hardware complications. 2. Moderate degenerative disc disease at C5-C6 and C6-C7. 3. No abnormal motion on flexion extension. MARIANA Jzvlosg1963-12-20 10:40:06EXAM: XR CERVICAL SPINE 2 VIEWS DATE: 12/30/2017 10:39 AM CDT INDICATION: Post surgical follow-up COMPARISON: None. TECHNIQUE: AP and lateral views of the cervical spine FINDINGS: Anterior cervical fusion hardware and intervertebral disc spacer at C4-[address] No perihardware lucency or evidence of hardware failure. Cervical alignment is maintained. Moderate degenerative changes at C5-6 and C6-7 with loss of vertebral disc height and anterior/posterior osteophyte formation. Moderate multilevel facet osteoarthropathy, more pronounced at C5-6 and C6-7. No prevertebral or paraspinous soft tissue abnormality is identified. IMPRESSION: 1. Anterior cervical fusion hardware and intervertebral disc spacer at C4-5 in satisfactory alignment. No evidence of hardware failure. 2. Moderate degenerative disease at C5-6 and C6-7. LORRAINE Navarro
[2025-06-22 21:02] LABS: PT Prothrombin Time 14.2 SECONDS (10-13.0); Protime INR 1.27
[2025-06-22 21:18] LABS: ALT/SGPT 113.0 U/L (13-56); AST/SGOT 299.0 U/L (15-37); Albumin 2.2 g/dL (3.4-5.0); Albumin/Globulin Ratio 0.5 (1.1-1.8); Alkaline Phosphatase 403.0 U/L (45-117); Anion Gap 11.7 mEq/L (5.0-15.0); BUN Blood Urea Nitrogen 13.0 mg/dL (7-18); Bilirubin Indirect, Calculated 0.4 mg/dL (0.2-0.8); Globulin 4.1 g/dL (2.3-3.5); Glucose Level 135.0 mg/dL (74-106); Magnesium 1.6 mg/dL (1.6-2.4); NT PRO-BNP 271.0 pg/mL (<125); Potassium 3.7 mEq/L (3.5-5.1); Troponin High Sensitivity 4.2 pg/mL (<58.9)
--- NOTE | 2025-06-22 21:24 | RAD REPORT ---
EXAMINATION: ONE VIEW CHEST XR CLINICAL INDICATION: SOB TECHNIQUE: Frontal chest projection is submitted. Examination is limited by patient positioning and t echnique. COMPARISON: 08/19/2024 FINDINGS: The lungs are well inflated and clear. The heart is moderately enlarged in size. No displaced fractur es identified. IMPRESSION: No acute intrathoracic abnormalities.
--- NOTE | 2025-06-22 21:48 | RAD REPORT ---
EXAMINATION: US BILATERAL LOWER EXTREMITY VENOUS DOPPLER CLINICAL INDICATION: SWELLING TECHNIQUE: Complete bilateral duplex sonography of the BILATERAL lower extremity veins was performed. The examination included compression for vein patency, color Doppler imaging and flow augmentation in response to distal compression of the distal external iliac, common femoral, femoral, popliteal, t ibial, and great and small saphenous veins. COMPARISON: No prior exam. FINDINGS: Duplex sonography testing of the veins of the BILATERAL lower extremity was performed. Color flow bam ging shows all veins to be compressible with [id number] color filling. Pulsatile and phasic flow is present within all lower extremity deep and superficial veins examined. IMPRESSION: There is no deep vein or superficial vein thrombosis.
[2025-06-22] MEDS ORDERED: ALBUMIN HUMAN 25% 100 ML IV ONE (22:34)
[2025-06-22] MEDS ORDERED: NA CHLORIDE 0.9% 500 ML ONE (22:34)
--- NOTE | 2025-06-22 22:35 | RAD REPORT ---
EXAM: CT CHEST, ABDOMEN AND PELVIS WITH CONTRAST CLINICAL INDICATION: SOB TECHNIQUE: CT chest, abdomen and pelvis was performed, following the administration of contrast, as p er department protocol. Axial, sagittal and coronal reconstructions were obtained. One or more of the following dose reduction techniques were used: Automated exposure control, adjustment of the mA a nd/or kV according to patient size, and/or iterative reconstruction. Unless otherwise specified, incidental findings do not require dedicated imaging follow-up. COMPARISON: No prior exam. FINDINGS: LUNGS: No evidence of airspace or interstitial process. No nodules. PLEURA: No pleural effusion. No pneumothorax. MEDIASTINUM AND LYMPH NODES: No mediastinal mass or fluid collection. Normal size mediastinal, hilar, and axillary lymph nodes. OSSEOUS STRUCTURES AND CHEST WALL: Intact. LIVER: The liver demonstrates significant fatty infiltration. No focal lesion or biliary dilatation s een. Grossly unremarkable gallbladder. PANCREAS: No mass, ductal dilation, or blayne-pancreatic fluid. SPLEEN: Normal size. No focal lesion. ADRENALS: Normal; no mass. KIDNEYS: Normal size and contour. No hydronephrosis. URINARY BLADDER: Normal contour. GASTROINTESTINAL TRACT: No bowel obstruction, free air, significant free fluid or abscess. APPENDIX: Appendix not visualized, but no inflammatory changes in region of appendix. LYMPH NODES: No lymphadenopathy. MUSCULOSKELETAL: No acute or suspicious osseous abnormality. Right total hip arthroplasty. OTHER: Mild atherosclerosis. IMPRESSION: Hepatomegaly with severe fatty liver.
[2025-06-22 23:21] LABS: Absolute Lymphocytes (CBC) 1.8 K/uL (0.7-4.9); Hematocrit 28.4 % (36.0-45.0); Hemoglobin 9.7 g/dL (12.0-15.0); MCH 35.1 pg (27.0-35.0); MCHC 34.2 g/dL (32.0-36.0); MCV 102.8 fL (80-100); MPV 8.9 fL (7.6-11.3); Nucleated RBC Absolute Count 0.0 (0-0); Nucleated Red Blood Cells % 0.1 % (0-0); RBC Red Blood Cell Count 2.76 M/uL (3.86-4.86); White Blood Count 7.60 thou/uL (4.3-10.9)
[2025-06-22 23:49] LABS: Urine Microscopic Reflex YN NO UMIC
--- NOTE | 2025-06-23 00:16 | RAD REPORT ---
EXAM: US Abdomen Limited, Gallbladder CLINICAL HISTORY: The patient is 60 years old and is Female; liver/gallbladder TECHNIQUE: Real-time ultrasound of the right upper quadrant with image documentation. COMPARISON: No relevant prior studies available. FINDINGS: GALLBLADDER: Suggestion of a small amount of sludge within the gallbladder is noted. There is no gallbladder wall thickening or pericholecystic fluid. There is a negative sonographic Edwards sign. COMMON BILE DUCT: Unremarkable as visualized. No stones. No dilation. IMPRESSION: Gallbladder sludge. Electronically signed by: Regina Gómez MD 06/23/2025 12:08 AM CDT RP Due to temporary technical issues with the PACS/[employer] reporting system, reports are being pura d by the in-house radiologist without review as a courtesy to ensure prompt reporting the interpreting radiologist is fully responsible for the content of the report. Transcribed Date/Time: 06/23/2025 12:15 AM
--- NOTE | 2025-06-23 00:23 | ER ---
Nurse's Notes [facility] Name: Williams Moore Age: 60 yrs Sex: Female : 1965 Arrival Date: 06/22/2025 Time: 18:11 Bed 19 Private MD: Diagnosis: Abnormal results of liver function studies;Edema, unspecified;Alcoholic liver disease, unspecified;Dyspnea Presentation: 06/22 19:01 Chief complaint: Patient states: I had some lab work done and my liver enzymes are high kd3 so i was sent here. Coronavirus screen: Vaccine status: Patient reports receiving the 2nd dose of the covid vaccine. Ebola Screen: No symptoms or risks identified at this time. Initial Sepsis Screen: Does the patient meet any 2 criteria? No. Patient's initial sepsis screen is negative. Does the patient have a suspected source of infection? No. Patient's initial sepsis screen is negative. Risk Assessment: Do you want to hurt yourself or someone else? Patient reports no desire to harm self or others. Onset of symptoms was June 22, 2025. 19:01 Method Of Arrival: Ambulatory kd3 19:01 Acuity: ELOISA 3 kd3 Triage Assessment: 19:03 General: Appears in no apparent distress. Behavior is calm, cooperative. Pain: kd3 Complains of pain in right foot and left foot. Historical: - PMHx: 19:03 Asthma; diabetes mellitus; kd3 - PSHx: 19:03 section; Fusion with hardware placement.; hysterectomy; Tonsillectomy; kd3 - Immunization history:: Adult Immunizations up to date, Flu vaccine is not up to date. - Infectious Disease History:: Denies. - Social history:: Smoking status: Patient denies any tobacco usage or history of. Screenin:00 [facility] ED Fall Risk Assessment (Adult) History of falling in the last 3 months, rg5 including since admission No falls in past 3 months (0 pts) Confusion or Disorientation No (0 pts) Intoxicated or Sedated No (0 pts) Impaired Gait No (0 pts) Mobility Assist Device Used No (0 pt) Altered Elimination No (0 pt) Score/Fall Risk Level 0 - 2 = Low Risk Oriented to surroundings, Maintained a safe environment. Abuse screen: Denies threats or abuse. Nutritional screening: No deficits noted. Tuberculosis screening: No symptoms or risk factors identified. 10/17 02:[address] [facility] Withdrawal Assessment for Alcohol, revised (WA-Ar): kt5 Nausea/Vomitin - Intermittent nausea with dry heaves Headache: 0 - Not present Paroxysmal Sweats: 0 - No sweats visible Anxiety: 4 - Moderately anxious, guarded Agitation: 0 - Normal actiivty Tremor: 4 - Moderate when client's hands extended Auditory Disturbances: 0 - Not present Visual Disturbances: 0 - Not present Tactile Disturbances: 0 - None Orientation and Clouding of Sensorium: 0 - Oriented and can do serial additions Total Score: 10 to 15: Mild Withdrawal. 04:11 [facility] Withdrawal Assessment for Alcohol, revised (WA-Ar): kt5 Nausea/Vomitin - No nausea or vomiting Headache: 0 - Not present Paroxysmal Sweats: 0 - No sweats visible Anxiety: 4 - Moderately anxious, guarded Agitation: 0 - Normal actiivty Tremor: 1 - Not visible, but can be felt at fingertips Auditory Disturbances: 0 - Not present Visual Disturbances: 0 - Not present Tactile Disturbances: 0 - None Orientation and Clouding of Sensorium: 0 - Oriented and can do serial additions Total Score: < 10 Very mild withdrawal. Assessment: 06/22 20:00 General: Appears in no apparent distress. comfortable, Behavior is calm, cooperative, rg5 appropriate for age. Pain: Complains of pain in right leg and left leg Quality of pain is described as dull, heavy. Neuro: Level of Consciousness is awake, alert, obeys commands, Oriented to person, place, time, situation. Cardiovascular: Reports shortness of breath, Denies chest pain, Patient's skin is warm and dry. Respiratory: Airway is patent Trachea midline Respiratory effort is even, unlabored, Respiratory pattern is regular. GI: Abdomen is round obese. : No signs and/or symptoms were reported regarding the genitourinary system. EENT: No signs and/or symptoms were reported regarding the EENT system. Derm: Skin is intact, Skin is dry, Skin is normal, Skin temperature is warm. Musculoskeletal: Circulation, motion, and sensation intact. Range of motion: intact in all extremities, Swelling present in right leg and left leg. 21:00 Reassessment: Patient and/or family updated on plan of care and expected duration. Pain rg5 level reassessed. Patient is alert, oriented x 3, equal unlabored respirations, skin warm/dry/pink. 22:00 Reassessment: Patient and/or family updated on plan of care and expected duration. Pain rg5 level reassessed. Patient is alert, oriented x 3, equal unlabored respirations, skin warm/dry/pink. Patient states symptoms have improved. 23:18 Reassessment: No changes from previously documented assessment. Patient and/or family rg5 updated on plan of care and expected duration. Pain level reassessed. Patient is alert, oriented x 3, equal unlabored respirations, skin warm/dry/pink. 06/23 00:08 Reassessment: received report from staffing and scheduling coordinator lalo, all questions answered. kt5 00:09 Reassessment: No changes from previously documented assessment. Patient and/or family kt5 updated on plan of care and expected duration. Pain level reassessed. Patient is alert, oriented x 3, equal unlabored respirations, skin warm/dry/pink. Patient states symptoms have improved. 01:16 Reassessment: Patient appears in no apparent distress at this time. No changes from kt5 previously documented assessment. Patient and/or family updated on plan of care and expected duration. Pain level reassessed. Patient is alert, oriented x 3, equal unlabored respirations, skin warm/dry/pink. pt waiting tranfer to [facility] Patient states symptoms have improved. 02:01 General: pt up ambulating to w/ocomplications. kt5 02:09 Reassessment: Patient appears in no apparent distress at this time. No changes from kt5 previously documented assessment. Patient and/or family updated on plan of care and expected duration. Pain level reassessed. Patient is alert, oriented x 3, equal unlabored respirations, skin warm/dry/pink. Patient states feeling better. Patient states symptoms have improved. 02:16 Reassessment: Patient appears in no apparent distress at this time. Patient and/or kt5 family updated on plan of care and expected duration. Pain level reassessed. Patient is alert, oriented x 3, equal unlabored respirations, skin warm/dry/pink. pt states that she would like something for her alcohol withdrawals, "i am starting to shake", per pt last drink was at 5 pm yesterday, provider aware. 03:05 Reassessment: Patient appears in no apparent distress at this time. No changes from kt5 previously documented assessment. Patient and/or family updated on plan of care and expected duration. Pain level reassessed. Patient is alert, oriented x 3, equal unlabored respirations, skin warm/dry/pink. Patient states feeling better. Patient states symptoms have improved. 03:05 Reassessment: Patient appears in no apparent distress at this time. No changes from kt5 previously documented assessment. Patient and/or family updated on plan of care and expected duration. Pain level reassessed. Patient is alert, oriented x 3, equal unlabored respirations, skin warm/dry/pink. Patient states feeling better. Patient states symptoms have improved. 03:17 General: report given to Alayna lemon at [facility], all questions answered. kt5 04:10 Reassessment: Patient appears in no apparent distress at this time. No changes from kt5 previously documented assessment. Patient and/or family updated on plan of care and expected duration. Pain level reassessed. Patient is alert, oriented x 3, equal unlabored respirations, skin warm/dry/pink. Patient states feeling better. Patient states symptoms have improved. 04:10 General: report given to ems, all questions answered. kt5 Vital Signs: 06/22 19:01 BP 103 / 66; Pulse 86; Resp 16; Temp 98.1(O); Pulse Ox 97% ; Weight 90.72 kg; Height 5 kd3 ft. 6 in. ; Pain 0/10; 20:03 BP 102 / 52; Pulse 87; Temp 97.9(O); Pulse Ox 100% on R/A; Weight 90.72 kg (R); Height sa1 5 ft. 6 in. (R); 20:30 BP 96 / 43; Pulse 91; Resp 18; Pulse Ox 100% ; Pain 0/10; rg5 21:15 BP 102 / 48; Pulse 82; Resp 18; Pulse Ox 100% ; rg5 22:36 BP 109 / 48; Pulse 89; Resp 18; Pulse Ox 100% ; rg5 23:22 BP 98 / 44; Pulse 97; Resp 18; Pulse Ox 99% ; rg5 23:30 BP 118 / 82 RA; Pulse 96; Resp 18; Pulse Ox 100% ; rg5 23:48 BP 108 / 54 LA Sitting; Pulse 100; Resp 18; Pulse Ox 100% ; rg5 10/17 00:09 BP 102 / 57; Pulse 80; Resp 18; Pulse Ox 99% ; kt5 01:17 BP 108 / 54; Pulse 94; Resp 18; Pulse Ox 99% ; kt5 02:09 BP 106 / 62; Pulse 80; Resp 18; Pulse Ox 99% ; Pain 4/10; kt5 03:05 BP 104 / 58; Pulse 76; Resp 16; Pulse Ox 99% ; Pain 3/10; kt5 04:10 BP 100 / 62; Pulse 80; Resp 16; Temp 98.3; Pulse Ox 98% ; Pain 3/10; kt5 06/22 20:03 Body Mass Index 32.28 (90.72 kg, 167.64 cm) sa1 06/22 19:01 Pain Scale: Adult kd3 20:30 Pain Scale: Adult rg5 02:09 Pain Scale: Adult kt5 03:05 Pain Scale: Adult kt5 04:10 Pain Scale: Adult kt5 Vitals: 06/22 20:00 Cardiac Rhythm Assessment Regular Sinus rhythm. rg5 ED Course: 18:13 Patient arrived in ED. im 18:21 Juan M Covington PA-C is PHCP. cp 18:21 Juan M Shepherd MD is Attending Physician. cp 19:03 Triage completed. kd3 19:03 Arm band placed on right wrist. kd3 20:00 Patient has correct armband on for positive identification. Bed in low position. Call rg5 light in reach. Side rails up X 1. Adult w/ patient. Door closed. Warm blanket given. 20:00 No provider procedures requiring assistance completed. Inserted saline lock: 22 gauge rg5 in right upper arm, using aseptic technique. Blood collected. Flushed with 10 mL NS. 20:05 Lalo Hernandez, RN is Primary Nurse. rg5 21:15 XRAY Chest (1 view) In Process Unspecified. EDMS 21:19 US Extremity Venous W Compression Keenan In Process Unspecified. EDMS 22:26 Chest Abdomen Pelvis W Cont In Process Unspecified. EDMS 23:03 US Abdomen Limited In Process Unspecified. EDMS 06/23 02:00 Attending Physician role handed off by Juan M Shepherd MD tt7 02:00 Beni Virk DO is Attending Physician. tt7 Administered Medications: 06/22 22:32 Not Given (Physician Discretion): ns 0.9% 1000 ml IV at 1 bolus Per protocol; to be cp given as a bolus over 60 minutes 22:51 Drug: Albumin IVPB 25 grams 100 ml IVPB once; (Note: Albumin 25% concentration) Volume: rg5 100 ml; Route: IVPB; Site: right upper arm; 23:17 Follow up: IV Status: Completed infusion; IV Intake: 100ml rg5 22:51 Drug: NS 0.9% IV 500 ml 500 ml IV at 1 bolus once; to be given as a bolus over 30 rg5 minutes Volume: 500 ml; Route: IV; Rate: 1 bolus; Site: right upper arm; 06/23 02:38 Follow up: Response: No adverse reaction kt5 03:19 Follow up: IV Status: Completed infusion; IV Intake: 500ml kt5 03:19 Follow up: Response: No adverse reaction kt5 02:36 Drug: Ativan IVP 1 mg IVP once Route: IVP; Site: left forearm; kt5 03:06 Follow up: Response: No adverse reaction; Anxiety decreased kt5 Medication: 06/22 20:00 VIS not applicable for this client. rg5 Intake: 23:17 IV: 100ml; Total: 100ml. rg5 06/23 03:19 IV: 500ml; Total: 600ml. kt5 Outcome: 00:22 ER care complete, transfer ordered by . steve 04:14 Patient left the ED. kt5 Signatures: Dispatcher [employer] EDMS Juan M Covington, PA-C PA-C Nina Mitchell RN RN kd3 Annie Smith Rommel RN RN rg5 Sultan tonya Ramos Keri, RN RN kt5 Beni Virk DO DO tt7 Corrections: (The following items were deleted from the chart) 06/22 19:03 19:03 PMHx: Hypertensive disorder; kd3 kd3
--- NOTE | 2025-06-23 00:23 | EDPHYS ---
Physician Documentation [facility] Name: Williams Moore Age: 60 yrs Sex: Female : 1965 Arrival Date: 06/22/2025 Time: 18:11 Bed 19 Private MD: ED Physician Beni Virk HPI: 06/22 20:18 This 60 yrs old Female presents to ER via Ambulatory with complaints of Abnormal Lab cp Results. 20:18 The patient presents with swelling, tenderness. cp 20:18 The complaints affect the left lower leg and right lower leg. Context: resulted from an cp unknown cause, the patient can fully bear weight. Onset: The symptoms/episode began/occurred gradually. Associated signs and symptoms: Pertinent positives: exertional shortness of breath. Patient referred to ED for evaluation of elevated liver enzymes noted on recent blood work. Patient reports hx of alcohol use every other day and no liver disease. Historical: - PMHx: 19:03 Asthma; diabetes mellitus; kd3 - PSHx: 19:03 section; Fusion with hardware placement.; hysterectomy; Tonsillectomy; kd3 - Immunization history:: Adult Immunizations up to date, Flu vaccine is not up to date. - Infectious Disease History:: Denies. - Social history:: Smoking status: Patient denies any tobacco usage or history of. ROS: 20:20 Constitutional: Negative for body aches, chills, fever, poor PO intake, cp 20:20 Cardiovascular: Positive for edema, Negative for chest pain, palpitations, cp 20:20 Respiratory: Positive for shortness of breath, on exertion. 20:20 Abdomen/GI: Negative for abdominal pain, vomiting, diarrhea, constipation, black/tarry stool, rectal bleeding, 20:20 Eyes: Negative for injury, pain, redness, and discharge, cp 20:20 ENT: Negative for drainage from ear(s), ear pain, sore throat, difficulty swallowing, cp difficulty handling secretions, 20:20 Back: Negative for pain at rest, pain with movement, 20:20 Skin: Negative for cellulitis, rash, 20:20 Neuro: Negative for altered mental status, dizziness, headache, weakness, 20:20 All other systems are negative, Exam: 20:23 Constitutional: The patient appears in no acute distress, alert, awake, cp non-diaphoretic, non-toxic, well developed, well nourished, overweight 20:23 Head/Face: Normocephalic, atraumatic. cp 20:23 Eyes: Periorbital structures: appear normal, Pupils: equal, round, and reactive to light and accomodation, Extraocular movements: intact throughout, Conjunctiva: normal, no exudate, no injection, Sclera: icterus, is not appreciated, Lids and lashes: appear normal, bilaterally, 20:23 ENT: External ear(s): are unremarkable, Nose: is normal, Mouth: Lips: moist, Oral mucosa: normal, Posterior pharynx: Airway: no evidence of obstruction, patent, 20:23 Neck: ROM/movement: is normal, is supple, without pain, no range of motions limitations, 20:23 Chest/axilla: Inspection: normal, Palpation: is normal, 20:23 Cardiovascular: Rate: normal, Rhythm: regular, Edema: ankle edema, that is mild, JVD: is not appreciated, 20:23 Respiratory: the patient does not display signs of respiratory distress, Respirations: normal, no use of accessory muscles, no retractions, labored breathing, is not present, Breath sounds: stridor, is not appreciated, wheezing: is not appreciated, 20:23 Abdomen/GI: Inspection: distension, that is mild, Bowel sounds: active, all quadrants, Palpation: soft, in all quadrants, mild abdominal tenderness, in all quadrants, rebound tenderness, is not appreciated, 20:23 Back: CVA tenderness, is absent, 20:23 Skin: Appearance: Color: normal in color, no rash present. 20:23 Neuro: Orientation: to person, place \T\ time. Mentation: able to follow commands, Motor: moves all fours, strength is normal, Sensation: is normal, 20:25 ECG was reviewed by the Attending Physician. cp Vital Signs: 19:01 BP 103 / 66; Pulse 86; Resp 16; Temp 98.1(O); Pulse Ox 97% ; Weight 90.72 kg; Height 5 kd3 ft. 6 in. ; Pain 0/10; 20:03 BP 102 / 52; Pulse 87; Temp 97.9(O); Pulse Ox 100% on R/A; Weight 90.72 kg (R); Height sa1 5 ft. 6 in. (R); 20:30 BP 96 / 43; Pulse 91; Resp 18; Pulse Ox 100% ; Pain 0/10; rg5 21:15 BP 102 / 48; Pulse 82; Resp 18; Pulse Ox 100% ; rg5 22:36 BP 109 / 48; Pulse 89; Resp 18; Pulse Ox 100% ; rg5 23:22 BP 98 / 44; Pulse 97; Resp 18; Pulse Ox 99% ; rg5 23:30 BP 118 / 82 RA; Pulse 96; Resp 18; Pulse Ox 100% ; rg5 23:48 BP 108 / 54 LA Sitting; Pulse 100; Resp 18; Pulse Ox 100% ; rg5 06/23 00:09 BP 102 / 57; Pulse 80; Resp 18; Pulse Ox 99% ; kt5 01:17 BP 108 / 54; Pulse 94; Resp 18; Pulse Ox 99% ; kt5 02:09 BP 106 / 62; Pulse 80; Resp 18; Pulse Ox 99% ; Pain 4/10; kt5 03:05 BP 104 / 58; Pulse 76; Resp 16; Pulse Ox 99% ; Pain 3/10; kt5 04:10 BP 100 / 62; Pulse 80; Resp 16; Temp 98.3; Pulse Ox 98% ; Pain 3/10; kt5 06/22 20:03 Body Mass Index 32.28 (90.72 kg, 167.64 cm) sa1 06/22 19:01 Pain Scale: Adult kd3 20:30 Pain Scale: Adult rg5 02:09 Pain Scale: Adult kt5 03:05 Pain Scale: Adult kt5 04:10 Pain Scale: Adult kt5 MDM: 06/22 19:04 Medical Screening Exam initiated artur 21:00 Differential diagnosis: cholecystitis, hepatic failure, choledocholithiasis, alcoholic cp cirrhosis, hepatitis. 06/23 00:20 Data reviewed: vital signs, nurses notes, lab test result(s), EKG, radiologic studies, cp CT scan, ultrasound, I have discussed the patient's presentation/case with the attending Emergency Department Physician; and as a result, I will transfer for hepatology services. 00:20 I considered the following discharge prescriptions or medication management in the emergency department Medications were administered in the Emergency Department. See MAR. Independent interpretation of the following test(s) in the Emergency Department EKG: See my EKG interpretation above. Test considered but Not performed: MRI: abdomen. Care significantly affected by the following chronic conditions: Diabetes, Obesity, Asthma. Counseling: I had a detailed discussion with the patient and/or guardian regarding the historical points, exam findings, and any diagnostic results supporting the discharge/admit diagnosis, lab results, radiology results, the need to transfer to another facility, for higher level of care, [facility] does not immediately have the required specialist. 06/22 20:19 Order name: Basic Metabolic Panel; Complete Time: 21:55 cp 06/22 21:55 Interpretation: Normal except: GLUC 135; CRE 1.18; GFR 53. cp 06/22 20:19 Order name: CBC with Diff; Complete Time: 00:09 cp 06/23 00:09 Interpretation: Normal except: RBC 2.76; HGB 9.7; HCT 28.4; MCV 102.8; MCH 35.1; PLT cp 148; RDW 17.2. 06/22 20:19 Order name: LFT's; Complete Time: 21:55 cp 06/22 21:55 Interpretation: Normal except: AST 299; ALT 113; ALK 403; BILIT 2.3; BILID 1.9; TP 6.3; cp ALB 2.2; GLOB 4.1; A/G 0.5. 06/22 20:19 Order name: Magnesium; Complete Time: 21:55 cp 06/22 20:19 Order name: NT PRO-BNP; Complete Time: 21:55 cp 06/22 20:19 Order name: PT-INR; Complete Time: 21:55 cp 06/22 20:19 Order name: Troponin HS; Complete Time: 21:55 cp 06/22 20:19 Order name: UA Rfx Lonny Cult if indicated cp 06/22 20:19 Order name: US Extremity Venous W Compression Keenan; Complete Time: 21:55 cp 06/22 20:19 Order name: XRAY Chest (1 view); Complete Time: 21:55 cp 06/22 21:59 Order name: US Abdomen Limited; Complete Time: 00:17 cp 06/22 22:22 Order name: Chest Abdomen Pelvis W Cont; Complete Time: 23:09 EDMS 06/22 20:19 Order name: EKG; Complete Time: 20:20 cp 06/22 20:19 Order name: Cardiac monitoring; Complete Time: 20:51 cp 10/16 20:19 Order name: EKG - Nurse/Tech; Complete Time: 20:23 cp 06/22 20:19 Order name: IV Saline Lock; Complete Time: 20:51 cp 06/22 20:19 Order name: Labs collected and sent; Complete Time: 20:51 cp 06/22 20:19 Order name: O2 Per Protocol; Complete Time: 20:23 cp 06/22 20:19 Order name: O2 Sat Monitoring; Complete Time: 20:23 cp 06/22 22:37 Order name: Misc. Order: RECOLLECT LAVENDER TOP; Complete Time: 23:17 rv1 EC/16 20:25 Rate is 83 beats/min. Rhythm is regular. ME interval is normal. QRS interval is normal. cp QT interval is normal. T waves are Inverted in lead aVR. Interpreted by me. Reviewed by me. Administered Medications: 22:32 Not Given (Physician Discretion): ns 0.9% 1000 ml IV at 1 bolus Per protocol; to be cp given as a bolus over 60 minutes 22:51 Drug: Albumin IVPB 25 grams 100 ml IVPB once; (Note: Albumin 25% concentration) Volume: rg5 100 ml; Route: IVPB; Site: right upper arm; 23:17 Follow up: IV Status: Completed infusion; IV Intake: 100ml rg5 22:51 Drug: NS 0.9% IV 500 ml 500 ml IV at 1 bolus once; to be given as a bolus over 30 rg5 minutes Volume: 500 ml; Route: IV; Rate: 1 bolus; Site: right upper arm; 06/23 02:38 Follow up: Response: No adverse reaction kt5 03:19 Follow up: IV Status: Completed infusion; IV Intake: 500ml kt5 03:19 Follow up: Response: No adverse reaction kt5 02:36 Drug: Ativan IVP 1 mg IVP once Route: IVP; Site: left forearm; kt5 03:06 Follow up: Response: No adverse reaction; Anxiety decreased kt5 Disposition: 02:06 Co-signature as Attending Physician, Beni ESTRADA/LAND LEASE INFORMATION CLERK's history reviewed, tt7 patient interviewed, and examined. HPI: 60-year-old female with alcoholic liver disease, has moderately elevated liver enzymes with AST greater than ALT, total bilirubin of 2.3, broad workup initiated and patient found to have moderate anemia with hemoglobin of 9.7, microcytic, mildly increased creatinine, significant fatty infiltration of the liver on ultrasound, some gallbladder sludge seen but no findings of cholecystitis or definitive radiographic evidence of biliary dilatation, Maddrey score of 21.6, will transfer to [facility] for hepatology evaluation. I do not suspect sepsis, patient does not have a suspected source of infection I agree with assessment and care plan and confirm the diagnosis (es) above. Disposition Summary: 06/23/25 00:22 Transfer Ordered Notes: Transfer Location: [facility] cp Reason: Higher level of care cp Condition: Stable cp Problem: new cp Symptoms: have improved cp Accepting Physician: DR Vega(06/23/25 04:14) kt5 Diagnosis - Abnormal results of liver function studies cp - Edema, unspecified cp - Alcoholic liver disease, unspecified cp - Dyspnea cp Forms: - Medication Reconciliation Form cp - SBAR form cp Signatures: Dispatcher [employer] EDMS Juan M Shepherd MD MD cha Page, Corey, PA-C PA-C Nina Mitchell RN RN kd3 Heather Hamilton rv1 Lalo Hernandez RN RN rg5 Tatiana Mcduffie RN RN kt5 Beni Virk DO DO tt7 Corrections: (The following items were deleted from the chart) 06/22 19:03 19:03 PMHx: Hypertensive disorder; kd3 kd3 22:00 22:00 Thorax W/ Con+CT.RAD.BRZ ordered. EDIA EDMS 22:23 21:59 Abdomen Pelvis W Con+CT.RAD.BRZ ordered. EDIA EDIA 06/23 01:28 00:22 doctor cp cp 02:02 01:28 DR Vega cp cp 02:13 02:06 Co-signature as Attending Physician, Beni ESTRADA/LAND LEASE INFORMATION CLERK's history reviewed, tt7 patient interviewed, and examined. HPI: 60-year-old female with alcoholic liver disease, has moderately elevated liver enzymes with AST greater than ALT, total bilirubin of 2.3, broad workup initiated and patient found to have moderate anemia with hemoglobin of 9.7, microcytic, mildly increased creatinine, significant fatty infiltration of the liver on ultrasound, some gallbladder sludge seen but no findings of cholecystitis or definitive radiographic evidence of biliary dilatation, Maddrey score of 21.6, will transfer to [facility] for hepatology evaluation I agree with assessment and care plan and confirm the diagnosis (es) above. tt7 04:14 02:02 DR Vega cp kt5
[2025-06-23] MEDS ORDERED: LORazepam 2 MG/ML VIAL ONE (02:27)
[2025-06-23 07:07] VITALS: BP 100/62; TEMP 98.3; O2SAT 98
== END 2025-06-23 04:14 | disposition short-term general hospital (02) ==
LOC: ER 18:11
DX: K70.9 Alcoholic liver disease, unspecified (principal); R60.9 Edema, unspecified; R06.00 Dyspnea, unspecified
CPT/HCPCS: 96365; 96361; 93005; 85025; 80048; 36415; 83735; 85610; 80076; 81003; 84484; 83880; 71260; 74177; 71045; 93970; 76705; 96375; 99284; Q9967; P9047; J7040